=== PATIENT | female | born 1965 | race Caucasian/White ===

== ENCOUNTER 2020-10-25 10:36 | Outpatient (REF) | payer OTHER, SELFPAY ==
[2020-10-25 10:53] LABS: MANUAL DIFF FLAG NO
[2020-10-25 11:17] LABS: Basophils Percent Auto 0.5 % (0-2); Hematocrit 35.1 % (37-47); Hemoglobin 11.7 g/dl (12.0-16.0); Imm Gran Abs Auto 0.01 X10*3/uL (0.00-0.03); Imm Gran Pct Auto 0.3 % (0.0-0.4); Lymphocytes Absolute Auto 1.4 X10*3/uL (1.2-4.9); Lymphocytes Percent Auto 35.3 % (20-40); Mean Corpuscular HGB Conc 33.3 g/dl (31.0-35.0); Mean Corpuscular Hemoglobin 32.9 pg (27.0-33.0); Mean Corpuscular Volume 98.6 fL (80-98); Mean Platelet Volume 9.9 fL (9.4-12.3); Monocytes Absolute Auto 0.4 X10*3/uL (0.1-1.2); Monocytes Percent Auto 10.5 % (2-11); Neutrophils Percent Auto 52.4 % (45-73); Platelet Count 283 X10*3/uL (160-400); Red Blood Count 3.56 X10*6/uL (4.20-5.50); Red Cell Distribution Width 12.1 % (11.0-16.0); White Blood Count 3.8 X10*3/uL (4.8-10.8)
[2020-10-25 11:33] LABS: Estimated Average Glucose 103 mg/dL; Hemoglobin A1c % 5.2 %
[2020-10-25 11:39] LABS: Glucose Urine UA NEG (NEG); Leukocyte Esterase Urine 1+ (NEG); Nitrite Urine NEG (NEG); Specific Gravity - Urine 1.025 (1.005-1.025); Urine Blood NEG (NEG); Urine Ketones NEG (NEG); Urine Protein NEG (NEG-TRACE)
[2020-10-25 11:43] LABS: Appearance Urine CLOUDY; Color Urine YELLOW
[2020-10-25 11:46] LABS: Alanine Aminotransferase 11 U/L (0-31); Albumin Level 4.2 g/dL (3.5-5.0); Alkaline Phosphatase 68 U/L (39-117); Anion Gap 13 (12-20); Aspartate Amino Transferase 15 U/L (5-31); Bilirubin Total 0.6 mg/dL (0.0-1.0); Blood Urea Nitrogen 15 mg/dL (9-16); Carbon Dioxide 25 mmol/L (22-29); Chloride 106 mmol/L (96-108); Cholesterol 193 mg/dL; Estimated Glomerular Filt Rate > 60; Glucose Fasting 103 mg/dL (60-99); HDL Cholesterol 70 mg/dL; LDL Cholesterol Calculated 112 mg/dl; Potassium 4.1 mmol/L (3.3-5.1); Sodium 140 mmol/L (135-145); Total Protein 6.7 g/dL (6.5-8.0); Triglycerides 55 mg/dL
[2020-10-25 11:58] LABS: Bacteria Urine 1+ /LPF; Mucus Urine TRACE /LPF; RBC Urine 0-2 /HPF (0); Squamous Epithelial Cell Urine 3+ /LPF
[2020-10-25 12:15] LABS: Microalbum/Creatinine Ratio Ur 10.2 ug/mg cr
[2020-10-25 13:22] LABS: Folate 16.9 ng/mL (> or = 4.0); Vitamin B12 > 2000 pg/mL (200-900)
== END 2020-10-25 10:37 | disposition home or self-care (01) ==
LOC: HO.LNP 10:36
PROVIDERS: Visit Provider Internal Medicine
DX: Z00.00 Encounter for general adult medical examination without abnormal findings (principal); E53.8 Deficiency of other specified B group vitamins; D64.9 Anemia, unspecified; R73.03 Prediabetes
CPT/HCPCS: 80053; 80061; 81001; 81003; 82043; 82607; 82746; 83036; 85025

== ENCOUNTER 2020-12-21 09:12 | Outpatient (REF) | payer OTHER, SELFPAY ==
--- NOTE | ~2020-12-21 | MM_ITS ---
EXAMINATION: BONE DENSITOMETRY CLINICAL INDICATION: Postmenopausal. COMPARISON: None (current study represents initial baseline exam). TECHNIQUE: Using a [employer] DXA System (software version: 13.1) manufactured by [employer], dual-energy x-ray absorptiometry was performed of the lumbar spine and left hip. The images are of good technical quality. Summary results are attached. FINDINGS: AP SPINE L1-L4: BMD 1.268 g/cm2, Z-score 1.7, T-score 0.7, normal. LEFT FEMUR, NECK: BMD 0.848 g/cm2, Z-score -0.2, T-score -1.4, osteopenia. LEFT FEMUR, TOTAL: BMD 1.003 g/cm2, Z-score 0.7, T-score 0.0, normal. IDENTIFIED RISK FACTORS: Menopause. HISTORY OF FRACTURE: None listed. MEDICATIONS: Vitamin D. MM/XR DEXA axial skeleton IMPRESSION: 1. DIAGNOSIS: Osteopenia based on the lowest T-score value of -1.4 in the femoral neck applying World Health Organization criteria. 2. 10-YEAR FRACTURE RISK PREDICTION, FRAX: Major osteoporotic fracture (clinical spine, forearm, hip or shoulder) 6.8%. Hip fracture 0.5%. 3. Treatment Recommendations: NOF guidelines recommend consideration for treatment in postmenopausal women and men age 50 and older presenting with the following: -A hip or vertebral (clinical or morphometric) fracture. -T-score less than or equal to -2.5 at the femoral neck or spine after appropriate evaluation to exclude secondary causes. -Low bone mass at the hip or spine and a 10-year fracture probability by FRAX of greater than or equal to 3% for hip fracture or greater than or equal to 20% for major osteoporotic fracture based on the [place] adapted WHO algorithm. 4. Other Recommendations: All treatment decisions require clinical judgment and consideration of individual patient factors, including patient preferences, comorbidities, previous drug use, risk factors not captured in the FRAX model (e.g. frailty, falls, vitamin D deficiency, increased bone turnover, interval significant decline in bone density) and possible under or overestimation of fracture risk by FRAX. Additional medical evaluation for secondary cause of low bone mineral density may be appropriate. FUTURE SCAN RECOMMENDATION: People with diagnosed cases of osteoporosis or at high risk for fracture should have regular bone mineral density tests. For patients eligible for Medicare, routine testing is allowed once every 2 years. The testing frequency can be increased to one year for patients who have rapidly progressing disease, those who are receiving or discontinuing medical therapy to restore bone mass, or have additional risk factors.
== END 2020-12-21 09:13 | disposition home or self-care (01) ==
LOC: HO.MAMMO 09:12
PROVIDERS: Visit Provider Internal Medicine
DX: Z13.820 Encounter for screening for osteoporosis (principal); M85.80 Other specified disorders of bone density and structure, unspecified site; Z78.0 Asymptomatic menopausal state; Z79.899 Other long term (current) drug therapy
CPT/HCPCS: 77080

== ENCOUNTER 2021-11-16 11:51 | Outpatient (REF) | payer OTHER, SELFPAY ==
[2021-11-16 11:56] LABS: MANUAL DIFF FLAG NO
[2021-11-16 12:19] LABS: Appearance Urine CLEAR; Color Urine YELLOW; Glucose Urine UA NEG (NEG); Leukocyte Esterase Urine NEG (NEG); Nitrite Urine NEG (NEG); Specific Gravity - Urine 1.025 (1.005-1.025); Urine Blood NEG (NEG); Urine Ketones 5 MG/DL (NEG); Urine Protein NEG (NEG-TRACE)
[2021-11-16 12:23] LABS: Basophils Percent Auto 0.3 % (0-2); Eosinophils Absolute Auto 0.1 X10*3/uL (0.0-0.4); Eosinophils Percent Auto 1.3 % (0-4); Hematocrit 35.1 % (37.0-47.0); Hemoglobin 11.5 g/dl (12.0-16.0); Imm Gran Abs Auto 0.01 X10*3/uL (0.00-0.03); Imm Gran Pct Auto 0.3 % (0.0-0.4); Lymphocytes Absolute Auto 1.3 X10*3/uL (1.2-4.9); Lymphocytes Percent Auto 31.3 % (20-40); Mean Corpuscular HGB Conc 32.8 g/dl (31.0-35.0); Mean Corpuscular Hemoglobin 32.5 pg (27.0-33.0); Mean Corpuscular Volume 99.2 fL (80.0-98.0); Mean Platelet Volume 9.5 fL (9.4-12.3); Monocytes Absolute Auto 0.4 X10*3/uL (0.1-1.2); Neutrophils Absolute Auto 2.3 x10*3/uL (2.0-8.3); Neutrophils Percent Auto 56.8 % (45-73); Platelet Count 272 X10*3/uL (160-400); Red Blood Count 3.54 X10*6/uL (4.20-5.50); Red Cell Distribution Width 12.3 % (11.0-16.0)
[2021-11-16 12:37] LABS: Estimated Average Glucose 105 mg/dL; Hemoglobin A1c % 5.3 %
[2021-11-16 12:41] LABS: Creatinine Urine 197.18 mg/dL; Microalbum/Creatinine Ratio Ur 8.6 ug/mg cr
[2021-11-16 12:46] LABS: Alanine Aminotransferase 11 U/L (0-31); Albumin Level 4.1 g/dL (3.5-5.0); Alkaline Phosphatase 84 U/L (39-117); Anion Gap 9 (12-20); Aspartate Amino Transferase 14 U/L (5-31); Bilirubin Total 0.5 mg/dL (0.0-1.0); Blood Urea Nitrogen 12 mg/dL (9-16); Calcium 9.5 mg/dL (8.4-10.2); Carbon Dioxide 30 mmol/L (22-29); Chloride 107 mmol/L (96-108); Cholesterol 204 mg/dL; Estimated Glomerular Filt Rate > 60; Glucose Fasting 105 mg/dL (60-99); HDL Cholesterol 67 mg/dL; LDL Cholesterol Calculated 129 mg/dl; Potassium 4.4 mmol/L (3.3-5.1); Sodium 142 mmol/L (135-145); Total Protein 6.7 g/dL (6.5-8.0); Triglycerides 44 mg/dL
[2021-11-16 13:30] LABS: Folate > 20.0 ng/mL (> or = 4.0); Vitamin B12 > 2000 pg/mL (200-900)
== END 2021-11-16 11:52 | disposition home or self-care (01) ==
LOC: HO.LNP 11:51
PROVIDERS: Visit Provider Internal Medicine
DX: Z00.00 Encounter for general adult medical examination without abnormal findings (principal); E53.8 Deficiency of other specified B group vitamins; D64.9 Anemia, unspecified; R73.03 Prediabetes
CPT/HCPCS: 80053; 80061; 81003; 82043; 82607; 82746; 83036; 85025

== ENCOUNTER 2022-11-22 11:29 | Outpatient (REF) | payer OTHER, SELFPAY ==
[2022-11-22 11:33] LABS: MANUAL DIFF FLAG NO
[2022-11-22 11:52] LABS: Appearance Urine Clear; Color Urine Yellow; Glucose Urine UA Negative (Negative); Leukocyte Esterase Urine Small (1+) (Negative); Nitrite Urine Negative (Negative); PH 5.5 (5.0-9.0); UMIC TRIGGER UACC YES; Urine Blood Negative (Negative); Urine Ketones Negative (Negative); Urine Protein Negative (Neg-Trace)
[2022-11-22 11:53] LABS: Basophils Percent Auto 0.5 % (0-2); Eosinophils Absolute Auto 0.1 X10*3/uL (0.0-0.4); Eosinophils Percent Auto 1.4 % (0-4); Hematocrit 36.3 % (37.0-47.0); Imm Gran Abs Auto 0.01 X10*3/uL (0.00-0.03); Imm Gran Pct Auto 0.2 % (0.0-0.4); Lymphocytes Absolute Auto 1.4 X10*3/uL (1.2-4.9); Lymphocytes Percent Auto 32.6 % (20-40); Mean Corpuscular HGB Conc 33.1 g/dl (31.0-35.0); Mean Corpuscular Hemoglobin 32.6 pg (27.0-33.0); Mean Corpuscular Volume 98.6 fL (80.0-98.0); Mean Platelet Volume 9.9 fL (9.4-12.3); Monocytes Absolute Auto 0.5 X10*3/uL (0.1-1.2); Monocytes Percent Auto 11.5 % (2-11); Neutrophils Absolute Auto 2.3 x10*3/uL (2.0-8.3); Neutrophils Percent Auto 53.8 % (45-73); Platelet Count 248 X10*3/uL (160-400); Red Blood Count 3.68 X10*6/uL (4.20-5.50); Red Cell Distribution Width 12.3 % (11.0-16.0); White Blood Count 4.3 X10*3/uL (4.8-10.8)
[2022-11-22 12:05] LABS: Bacteria Urine None Seen (None Seen); Hyaline Casts Urine 0-2 /LPF (0-2); UACC Culture Trigger YES; WBC Urine 0-5 /HPF (0-5)
[2022-11-22 12:06] LABS: Estimated Average Glucose 111 mg/dL; Hemoglobin A1c % 5.5 %
[2022-11-22 12:14] LABS: Alanine Aminotransferase 12 U/L (0-31); Albumin Level 4.1 g/dL (3.5-5.0); Alkaline Phosphatase 74 U/L (39-117); Anion Gap 10 (12-20); Aspartate Amino Transferase 13 U/L (5-31); Bilirubin Total 0.7 mg/dL (0.0-1.0); Blood Urea Nitrogen 13 mg/dL (9-16); Calcium 9.2 mg/dL (8.4-10.2); Carbon Dioxide 28 mmol/L (22-29); Chloride 108 mmol/L (96-108); Cholesterol 199 mg/dL; Estimated Glomerular Filt Rate > 60; Glucose Fasting 98 mg/dL (60-99); HDL Cholesterol 69 mg/dL; LDL Cholesterol Calculated 123 mg/dl; Potassium 4.1 mmol/L (3.3-5.1); Sodium 142 mmol/L (135-145); Total Protein 6.4 g/dL (6.5-8.0); Triglycerides 39 mg/dL
[2022-11-22 12:37] LABS: Creatinine Urine 155.92 mg/dL; Microalbum/Creatinine Ratio Ur 8.9 ug/mg cr
[2022-11-22 12:56] LABS: Vitamin B12 > 2000 pg/mL (200-900)
[2022-11-22 14:05] LABS: Folate 14.4 ng/mL (> or = 4.0)
== END 2022-11-22 11:30 | disposition home or self-care (01) ==
LOC: HO.LNP 11:29
PROVIDERS: Visit Provider Internal Medicine
DX: Z00.00 Encounter for general adult medical examination without abnormal findings (principal); E53.8 Deficiency of other specified B group vitamins; D64.9 Anemia, unspecified; R73.03 Prediabetes
CPT/HCPCS: 80053; 80061; 81001; 82043; 82607; 82746; 83036; 85025; 87086

== ENCOUNTER 2022-12-11 10:20 | Outpatient (REF) | payer OTHER, SELFPAY ==
[2022-12-11 10:58] LABS: Appearance Urine Clear; Color Urine Yellow; Glucose Urine UA Negative (Negative); Leukocyte Esterase Urine Trace (Negative); Nitrite Urine Negative (Negative); PH 6.5 (5.0-9.0); Specific Gravity - Urine 1.015 (1.005-1.025); UMIC TRIGGER UACC YES; Urine Blood Negative (Negative); Urine Ketones Negative (Negative); Urine Protein Negative (Neg-Trace)
[2022-12-11 11:01] LABS: Bacteria Urine None Seen (None Seen); Hyaline Casts Urine 0-2 /LPF (0-2); RBC Urine 0-2 /HPF (0-2); Squamous Epithelial Cell Urine 0-2 /HPF (0-2); WBC Urine 0-5 /HPF (0-5)
== END 2022-12-11 10:21 | disposition home or self-care (01) ==
LOC: HO.LNP 10:20
PROVIDERS: PCP Internal Medicine; Visit Provider Internal Medicine
DX: R31.9 Hematuria, unspecified (principal)
CPT/HCPCS: 81001

== ENCOUNTER 2022-12-12 07:26 | Outpatient (REF) | payer OTHER, SELFPAY ==
--- NOTE | ~2022-12-12 | XR_ITS ---
EXAMINATION: XR CERVICAL SPINE CLINICAL INFORMATION: Right-sided neck pain COMPARISON: 06/08/2014 TECHNIQUE: Three-view cervical spine FINDINGS: No abnormal prevertebral soft tissue swelling is seen. No acute cervical spine fracture is noted. Alignment is satisfactory. There is mild narrowing at the C4-C5 and C5-C6 levels. Mild marginal spurring is seen at these levels. XR/XR cervical spine 2V IMPRESSION: Mild cervical spondylosis C4-C6.
== END 2022-12-12 07:27 | disposition home or self-care (01) ==
LOC: HO.XRAY 07:26
PROVIDERS: PCP Internal Medicine; Visit Provider Internal Medicine
DX: M54.2 Cervicalgia (principal)
CPT/HCPCS: 72040

== ENCOUNTER 2022-12-27 08:11 | Outpatient (REF) | payer OTHER, SELFPAY ==
--- NOTE | ~2022-12-27 | MM_ITS ---
EXAMINATION: BONE DENSITOMETRY CLINICAL INDICATION: Postmenopausal. COMPARISON: Baseline BD dated 12/21/2020. TECHNIQUE: Using a [employer] DXA System (software version: 13.1) manufactured by [employer], dual-energy x-ray absorptiometry was performed of the lumbar spine and left hip. The images are of good technical quality. Summary results are attached. FINDINGS: AP SPINE L1-L4: Current: BMD 1.235 g/cm2, Z-score 1.6, T-score 0.5, normal, 2.6% decrease from baseline (<5% change is not significant). Baseline: BMD 1.268 g/cm2. LEFT FEMUR, NECK: Current: BMD 0.812 g/cm2, Z-score -0.4, T-score -1.6, osteopenia. Baseline: BMD 0.848 g/cm2. LEFT FEMUR, TOTAL: Current: BMD 0.968 g/cm2, Z-score 0.5, T-score -0.3, normal, 3.5% increase from baseline (<5% change is not significant). Baseline: BMD 1.003 g/cm2. IDENTIFIED RISK FACTORS: Menopause, low calcium intake. HISTORY OF FRACTURE: None listed. MEDICATIONS: Vitamin D. MM/XR DEXA axial skeleton IMPRESSION: 1. DIAGNOSIS: Osteopenia based on the lowest T-score value of -1.6 in the femoral neck applying World Health Organization criteria. 2. 10-YEAR FRACTURE RISK PREDICTION, FRAX: Major osteoporotic fracture (clinical spine, forearm, hip or shoulder) 8.1%. Hip fracture 0.8%. 3. Treatment Recommendations: NOF guidelines recommend consideration for treatment in postmenopausal women and men age 50 and older presenting with the following: -A hip or vertebral (clinical or morphometric) fracture. -T-score less than or equal to -2.5 at the femoral neck or spine after appropriate evaluation to exclude secondary causes. -Low bone mass at the hip or spine and a 10-year fracture probability by FRAX of greater than or equal to 3% for hip fracture or greater than or equal to 20% for major osteoporotic fracture based on the [place] adapted WHO algorithm. 4. Other Recommendations: All treatment decisions require clinical judgment and consideration of individual patient factors, including patient preferences, comorbidities, previous drug use, risk factors not captured in the FRAX model (e.g. frailty, falls, vitamin D deficiency, increased bone turnover, interval significant decline in bone density) and possible under or overestimation of fracture risk by FRAX. Additional medical evaluation for secondary cause of low bone mineral density may be appropriate. FUTURE SCAN RECOMMENDATION: People with diagnosed cases of osteoporosis or at high risk for fracture should have regular bone mineral density tests. For patients eligible for Medicare, routine testing is allowed once every 2 years. The testing frequency can be increased to one year for patients who have rapidly progressing disease, those who are receiving or discontinuing medical therapy to restore bone mass, or have additional risk factors.
== END 2022-12-27 08:12 | disposition home or self-care (01) ==
LOC: HO.MAMMO 08:11
PROVIDERS: PCP Internal Medicine; Visit Provider Internal Medicine
DX: Z13.820 Encounter for screening for osteoporosis (principal); Z78.0 Asymptomatic menopausal state
CPT/HCPCS: 77080

== ENCOUNTER 2023-12-09 10:48 | Outpatient (REF) | payer OTHER, SELFPAY ==
[2023-12-09 10:51] LABS: MANUAL DIFF FLAG NO
[2023-12-09 11:05] LABS: Basophils Percent Auto 0.5 % (0-2); Hematocrit 37.1 % (37.0-47.0); Hemoglobin 12.4 g/dl (12.0-16.0); Lymphocytes Absolute Auto 1.4 X10*3/uL (1.2-4.9); Mean Corpuscular HGB Conc 33.4 g/dl (31.0-35.0); Mean Corpuscular Hemoglobin 32.4 pg (27.0-33.0); Mean Corpuscular Volume 96.9 fL (80.0-98.0); Mean Platelet Volume 9.7 fL (9.4-12.3); Monocytes Absolute Auto 0.4 X10*3/uL (0.1-1.2); Monocytes Percent Auto 10.9 % (2-11); Neutrophils Absolute Auto 2.1 x10*3/uL (2.0-8.3); Neutrophils Percent Auto 52.6 % (45-73); Platelet Count 290 X10*3/uL (160-400); Red Blood Count 3.83 X10*6/uL (4.20-5.50); Red Cell Distribution Width 13.2 % (11.0-16.0); White Blood Count 3.9 X10*3/uL (4.8-10.8)
[2023-12-09 11:27] LABS: Appearance Urine Clear; Color Urine Yellow; Estimated Average Glucose 108 mg/dL; Glucose Urine UA Negative (Negative); Hemoglobin A1c % 5.4 % (<6.0); Leukocyte Esterase Urine Negative (Negative); Nitrite Urine Negative (Negative); PH 5.5 (5.0-9.0); Specific Gravity - Urine 1.025 (1.005-1.025); Urine Blood Negative (Negative); Urine Ketones Negative (Negative); Urine Protein Negative (Neg-Trace)
[2023-12-09 11:30] LABS: Bacteria Urine None Seen (None Seen); Hyaline Casts Urine 0-2 /LPF (0-2); RBC Urine 0-2 /HPF (0-2); Squamous Epithelial Cell Urine 0-2 /HPF (0-2); WBC Urine 0-5 /HPF (0-5)
[2023-12-09 11:34] LABS: Creatinine Urine 203.34 mg/dL; Microalbum/Creatinine Ratio Ur 8.3 ug/mg cr (<30)
[2023-12-09 11:40] LABS: Alanine Aminotransferase 11 U/L (0-31); Albumin Level 4.2 g/dL (3.5-5.0); Alkaline Phosphatase 76 U/L (39-117); Anion Gap 15 (12-20); Aspartate Amino Transferase 16 U/L (5-31); Bilirubin Total 0.6 mg/dL (0.0-1.0); Blood Urea Nitrogen 12 mg/dL (9-16); Calcium 9.5 mg/dL (8.4-10.2); Carbon Dioxide 25 mmol/L (22-29); Chloride 107 mmol/L (96-108); Cholesterol 199 mg/dL (<200); Estimated Glomerular Filt Rate > 60; Glucose Fasting 98 mg/dL (60-99); HDL Cholesterol 80 mg/dL (>40); LDL Cholesterol Calculated 111 mg/dL (<100); Potassium 4.1 mmol/L (3.3-5.1); Sodium 143 mmol/L (135-145); Triglycerides 44 mg/dL (<150)
== END 2023-12-09 10:49 | disposition home or self-care (01) ==
LOC: HO.LNP 10:48
PROVIDERS: Visit Provider Internal Medicine
DX: Z00.00 Encounter for general adult medical examination without abnormal findings (principal); R73.03 Prediabetes
CPT/HCPCS: 80053; 80061; 81001; 82043; 82570; 83036; 85025

== ENCOUNTER 2025-03-05 10:16 | Outpatient (REF) | payer OTHER, SELFPAY ==
--- OUTSIDE RECORDS SUMMARY | 2025-03-05 03:30 | XMS_ITS ---
Author Organization Wilfred Chavez MD Address [address] [place] [phone] Care Team Providers Care Form Tamper Operator Name Role Phone Wilfred Chavez Primary Care Provider REASON FOR VISIT FASTING LABS Encounters Encounter Location Date Provider Diagnosis Wilfred Chavez MD [address] [place] [address] [place] [phone] 03/05/2025 Wilfred Chavez Blood tests for routine [...] type (ICD-10 - D64.9) Plan Of Treatment Pending Test Test Name Order Date Complete Blood Count Auto Diff Comprehensive [place]. Panel Fast Lipid Panel 03/05/2025 Vitamin B12 and Folate 03/05/2025 Microalbumin, Random 03/05/2025 Hemoglobin A1c 03/05/2025 UA ClnCatch+Micro w/rflx Cult 03/05/2025 Next Appt Details Provider Name:Wilfred duenas, 03/11/2025 08:00:00 AM, [address], [address], [place], [place], [phone], Progress Notes * Tiffanie KIRBY MDOB: [birth year] (59 yo F)Acc No.[id number]:03/05/2025 Progress Note Patient: Tiffanie DOLL Provider: Cristian Chavez MD :1965 A ge:59 Y S ex:Female Date:03/05/2025 Address:[address] [place], [place] [phone] Subjective: * Chief Complaints: * 1 . [...] L AB: Complete Blood Count Auto Diff L AB: Comprehensive [place]. Panel Fast L AB: Lipid Panel L AB: Vitamin B12 and Folate L AB: Microalbumin, Random L AB: Hemoglobin A1c L AB: UA ClnCatch+Micro w/rflx Cult 3. P rediabetes L AB: Complete Blood Count Auto Diff L AB: Comprehensive [place]. Panel Fast L AB: Lipid Panel L AB: Vitamin B12 and Folate L AB: Microalbumin, Random L AB: Hemoglobin A1c L AB: UA ClnCatch+Micro w/rflx Cult 4. A nemia, unspecified type L AB: Complete Blood Count Auto Diff L AB: Comprehensive [place]. Panel Fast L AB: Lipid Panel L AB: Vitamin B12 and Folate L AB: Microalbumin, Random L AB: Hemoglobin A1c L AB: UA ClnCatch+Micro w/rflx Cult * Procedure Codes: 3 6415 VENIPUNCT, ROUTINE* * * The named appointment provid er may or may not be the originator of this progress note, and it is not deemed complete until electronically signed by the appointment provider. Sign off status: Pending * Provider: Cristian Chavez MD Date: 0 03/05/2025 Generated for Otto moffett/Shanon/eTransmitting on: 0 03/05/2025 10:22 AM EDT
--- OUTSIDE RECORDS SUMMARY | 2025-03-05 10:22 | XMS_ITS | Patient Health Record ---
Author Organization [facility] Address [address] [place] [address] Care Team Providers Care Car Jockey Name Role Phone Scott DU, Wilfred Primary Care Provider Ricardo Wilson [phone] Allergies Allergen (clinical drug ingredient) Drug/Non Drug Allergy documented on EMR Reaction Allergy Type Onset Date Status ibuprofen Ibuprofen upset stomach Drug Allergy Act ivette Reason For Referral No Information Medications Medication SIG (Take, Route, Fr equency, Duration) Notes Start Date End Date Status MoviPrep 100 GM as directed Orally a s directed for 1 dose 02/25/2013 Active Problems Problem Type SNOMED Code ICD Code Onset Dates Problem Status W/U Status Risk Notes Problem Epigastric pain (30633528) Abdominal pain, epigastric (789.06) Active confirmed Problem Colon cancer screening (V76.51) Active confirmed Plan Of Treatment Pending Test Test Name Order Date LIVER PROFILE 02/25/2013 AMYLASE 02/25/2013 LIPASE 02/25/2013 CBC w DIFF 02/25/2013 Future Test Test Name Order Date UPPER GI ENDOSCOPY 02/25/2013 COLONOSCOPY 02/25/2013 Insurance Providers Payer Name Payer Address Payer Phone Subscriber Number Group Number Insured Name Patient Relationship to Insured Coverage Start Date Coverage End Date [facility] [address] [facility] [phone] [id number] HARVINDER PARRISH Self - patient is the insured Medical (General) History Medical History History ICD Code EGD in 08/2010--gastritis wit h H.pylori-Rx'd with 10 days of Omeprazole, Biaxin, and Amoxicillen--gave her good relief at the time Denies PA,DM,CVA,Lung disease,renal dise ase U/S in 06/2010 with gallbladder polyps -no stones
[2025-03-05 10:24] LABS: MANUAL DIFF FLAG NO
[2025-03-05 12:18] LABS: Appearance Urine Clear; Glucose Urine UA Negative (Negative); PH 7.5 (5.0-9.0); Specific Gravity - Urine 1.020 (1.005-1.025); UMIC TRIGGER UACC YES
[2025-03-05 12:19] LABS: Hematocrit 36.6 % (37.0-47.0); Hemoglobin 11.9 g/dl (12.0-16.0); Imm Gran Abs Auto 0.01 X10*3/uL (0.00-0.03); Imm Gran Pct Auto 0.2 % (0.0-0.4); Lymphocytes Absolute Auto 1.4 X10*3/uL (1.2-4.9); Mean Corpuscular HGB Conc 32.5 g/dl (31.0-35.0); Mean Corpuscular Hemoglobin 32.0 pg (27.0-33.0); Mean Corpuscular Volume 98.4 fL (80.0-98.0); NRBC Abs Auto 0.000 X10*3/uL (0.0-0.012); NRBC Pct Auto 0.0 /100WBC (0.0-0.2); Platelet Count 271 X10*3/uL (160-400); Red Blood Count 3.72 X10*6/uL (4.20-5.50); White Blood Count 4.4 X10*3/uL (4.8-10.8)
[2025-03-05 12:21] LABS: UACC Culture Trigger YES
[2025-03-05 12:27] LABS: Hemoglobin A1C 118.8373 umol/L; Total Hemoglobin (HGBA1C) 3199.6168 umol/L
[2025-03-05 12:32] LABS: Alanine Aminotransferase 14 U/L (0-31); Albumin Level 4.3 g/dL (3.5-5.0); Alkaline Phosphatase 72 U/L (39-117); Anion Gap 10 (12-20); Aspartate Amino Transferase 23 U/L (5-31); Blood Urea Nitrogen 15 mg/dL (9-16); Calcium 9.0 mg/dL (8.4-10.2); Carbon Dioxide 28 mmol/L (22-29); Chloride 107 mmol/L (96-108); Cholesterol 198 mg/dL (<200); Estimated Glomerular Filt Rate > 60; HDL Cholesterol 79 mg/dL (>40); Potassium 4.3 mmol/L (3.3-5.1); Sodium 141 mmol/L (135-145); Total Protein 6.8 g/dL (6.5-8.0); Triglycerides 39 mg/dL (<150)
[2025-03-05 13:06] LABS: Folate 11.1 ng/mL (> or = 4.0); Vitamin B12 > 2000 pg/mL (200-900)
[2025-03-05 14:08] LABS: Microalbum/Creatinine Ratio Ur 16.0 ug/mg cr (<30)
== END 2025-03-05 10:17 | disposition home or self-care (01) ==
LOC: HO.LNP 10:16
PROVIDERS: Visit Provider Internal Medicine
DX: Z00.00 Encounter for general adult medical examination without abnormal findings (principal); D64.9 Anemia, unspecified; E53.8 Deficiency of other specified B group vitamins; R73.03 Prediabetes; Z13.6 Encounter for screening for cardiovascular disorders
CPT/HCPCS: 80053; 80061; 81001; 82043; 82570; 82607; 82746; 83036; 85025; 87086

== ENCOUNTER 2025-03-11 11:15 | Outpatient (REF) | payer OTHER, SELFPAY ==
--- OUTSIDE RECORDS SUMMARY | 2025-03-11 04:00 | XMS_ITS ---
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 Thyroid 90 MG 1 tablet on an empty stomach Orally Once a day for 30 day(s) Active I33-Lefbqm 5000 1 tablet Orally once a day Active Vitamin D 50 MCG (1999 [place]) 1 tablet Orally Once a day [...] Status W/U Status Risk Notes Problem Hypothyroid (E03.9) Active confirmed Vital Signs Blood pressure systolic 102 mm Hg 03/11/20 25 Blood pressure diastolic 60 mm Hg 025 Height 66.5 in 03/11/2025 Weight 152 lbs 03/11/2025 BMI 24.16 kg/m2 03/11/2025 weight is up 6 pounds since 8--24 Encounters Encounter Location Date Provider Diagnosis Wilfred Cahvez MD [address] [place], [place] [phone] 03/11/2025 Wilfred Chavez Annual physical exam Z00.00 [...] diagnostic testing, [place] order faxed [place] [facility] [place] 03/11/2025 Prediabetes (ICD-10 - R73.03) [...] t esting, [place] order faxed to [facility] [place] Prediabetes stable, n need for m edication at this time Vitamin B12 deficiency Stable, will cont inue current regiment Depression screening negative screen Pending Test Test Name Order Date US ABD 03/11/2025 TSH reflex Free T4 03/11/2025 Next Appt Details Follow Up: 4 Weeks, Reason: Provider Name:Wilfred duenas, 04/19/2025 09:00:00 AM, [address], [address], [place], [place], [phone], Provider Name:Wilfred Collado ier, 03/07/2026 07:00:00 AM, [address], [address], [place], [phone], Provider Name:Wilfred Collado ier, 03/14/2026 09:30:00 AM, [address], [address], [place], [phone], Progress Notes * Tiffanie KIRBY MDOB: [birth year] (60 yo F)Acc No.[id number]:03/11/2025 Progress Notes Patient: Tiffanie DOLL Provider: Cristian Chavez MD :1965 A ge:60 Y S ex:Female Date:03/11/2025 Address:[address] [place], [place] [phone] Subjective: * Chief Complaints: * 1 . ANNUAL EXAM. * HPI: D epression Screening: PHQ-9 L [...] d enies. H eadache?denies. * Medical History: Colonoscopy - repeat in 10 years going to do cologard, 07/2015 Pap Smear w/ Dr.Lisa Butterfield,[place] CHIEF OF FIELD OPERATIONS ([phone]). * Family History: F ather: 79 yrs, [...] spouse. Marital status: . Occupation: works full-time [employer]. Pets: cat x1. 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 Objective: * Vitals: H t: 66.5, Wt: [...] mg/dL Urine Blood Negative Negative - Specific [place] - Urine 1.020 1.005-1.025 - Urine Protein [...] Urine 0-2 0-2 - /LPF L ab:Comprehensive [place]. Panel Fast (Order Date - 03/05/2025) (Collection [...] masses palpable. RECTAL EXAM: d one by inspector bicycle. FEMALE GENITOURINARY: d one by inspector bicycle. EXTREMITIES: n o clubbing, cyanosis, or edema. [...] diagnostic testing, [place] order faxed to [facility] de[facility] 4. P rediabetes Notes: stable, n need for medication at this time 5. V itamin B12 deficiency Notes: Stable, will continue current regiment 6. D epression screening Notes: negative screen * Procedure Codes: 3 6415 VENIPUNCT, ROUTINE* * Follow Up: 4 Weeks * * The named appointment provid er may or may not be the originator of this progress note, and it is not deemed complete until electronically signed by the appointment provider. Sign off status: Pending * Provider: Cristian Chavez MD Date: 03/11/2025 Generated for Otto moffett/Shanon/Galesmitting on: 03/11/2025 12:21 PM EDT History and Physical Notes * [...] mass, no lump RECTAL EXAM: done by inspector bicycle FEMALE GENITOURINARY: done by inspector bicycle ORAL CAVITY: mucosa moist
--- OUTSIDE RECORDS SUMMARY | 2025-03-11 12:21 | XMS_ITS | Clinical Summary ---
Author Organization [facility] Address [address] [place] [phone] Phone Care Team Providers Care Leasing Coordinator Name Role Phone Wilfred Chavez MD Primary Care Provider Allergies Active Allergy Reactions Criticality Noted Date Comments Ibuprofen 07/26/2016 Other reaction(s): gastric issues Medications magnesium sulfate 100 mg Cap 1 capsule with food Orally Four times a day Active cyanocobalamin, vitamin B-12, 5,000 mcg Subl 1 tablet under the tongue and allow to dissolve Sublingual Once a day Active CENTER SALES AND SERVICE ASSOCIATE THYROID 15 mg Tab TAKE 1 TABLET BY MOUTH EVERY DAY WITH 60MG TABLET 4 8 Active CENTER SALES AND SERVICE ASSOCIATE THYROID 60 mg Tab TAKE 1 TABLET BY MOUTH EVERY MORNING WITH 15MG TABLET 4 8 Active benzonatate (TESSALON) 100 MG capsule Take 1 capsule (100 mg total) by mouth 3 (three) times a day as needed for cough. 20 capsule 2 Active Active Problems Problem Noted Date Diagnosed Date Disorder of thyroid 10/22/2021 Immunizations Immunization Administration Dates Next Due COVID-19 (Pre-05/20) Pfizer Vaccine, mRNA, PF Hiv 11/03/2020 Family History Medical History Relation Comments COPD Father Emphysema Father dx @ 77 Heart failure Father Breast cancer Maternal Aunt in 70s Breast cancer Maternal Grandmother @ 60s Heart murmur Mother Relation Status Comments Father Maternal Aunt Maternal Grandmother Mother Alive Social History Tobacco Use Types Packs/Day Years Used Date Smoking Tobacco: Never Smokeless Tobacco: Never Tobacco Cessation:Counseling Given: Not Answered Alcohol Use Standard Drinks/Week Comments Yes 1 (1 standard drink = 0.6 oz pur e alcohol) social Education Answer Date Recorded Are you interested in more education? Not on usha e 11/23/2022 Are you concerned about learning? Not on file 11/23/2022 No 11/23/2022 No 11/23/2022 Digital Access Answer Date Recorded No 12/24/2022 No 12/24/2022 Reliable internet access at home? Not on file 12/24/2022 Device with a working camera? Not on file Intimate Partner Violence Answer Date R ecorded Are you denied basic needs s uch as food, clothing, or medical care? No 07/22/2023 In the past 12 months have y ou been in a relationship with a person who hurts, threatens, or tries to control you? No 07/22/2023 Are you denied basic needs s uch as food, clothing, or medical care? No 07/22/2023 In the past 12 months have y ou been in a relationship with a person who hurts, threatens, or tries to control you? No 07/22/2023 Comments No Sex and Gender Information Value Date Recorded Sex Assigned at Not on file Legal Sex Female 9:44 PM EDT Gender Identity Not on file Sexual Orientation Not on file Last Filed Vital Signs Vital Sign Reading Time Taken Comments Blood Pressure 148/85 07/22/2023 8:28 AM EST Pulse 62 07/22/2023 8:28 AM EST Temperature 36.7 C (98.1 F) 07/22/2023 8:28 AM EST Respiratory Rate 14 07/22/2023 8:28 AM EST Oxygen Saturation 99% 07/22/2023 8:28 AM EST Inhaled Oxygen Concentration - - Weight 68 kg (150 lb) 07/26/2022 2:08 PM EST Height 170.2 cm (5' 7 ) 07/26/2022 2:08 PM EST Body Mass Index 23.49 07/26/2022 2:08 PM EST Plan of Treatment Upcoming Encounters Date Type Department Care Team (Late st Contact Info) Description 10/08/2024 Procedure Pass [address] [address] 06/04/2025 4:00 PM EST Appointment [facility] Mammography- [facility] [address] [place] [address] Wilfred Chavez MD [address] [place] [address] [place] [address] Health Maintenance Due Date Last Done Comments Adult Td,Tdap Booster 1965 LIPID PANEL 1965 DEPRESSION SCREENING 1975 HEPATITIS C SCREENING 1981 HIV ONE-TIME SCREENING (18-65 YEARS) 1981 COLOGUARD 2008 COLONOSCOPY 2008 COLORECTAL CANCER SCREENING 2008 FIT TEST 2008 FOBT 2008 SIGMOIDOSCOPY 2008 VIRTUAL COLONOSCOPY 2008 PNEUMOCOCCAL VACCINES (50+ years) (1 of 1 - PCV) 2013 ZOSTER VACCINES (1 of 2) 2013 PAP SMEAR 09/01/2018 09/01/2015 COVID-19 VACCINE ( season) 2024 07/31/2021, 11/03/2020, 11/03/2020 MAMMOGRAM 11/28/2025 11/29/2023, 04/0 11/2022, 05/23/2021, Additional history exists RSV VACCINE (1 - 1-dose 75+ series) 2038 SMOKING STATUS SCREENING (Once After 26 Yrs) Completed 12/26/2023 HEPATITIS A VACCINES Aged Out No long er eligible based on patient's age to complete this topic HIB VACCINES Aged Out No longer eligi ble based on patient's age to complete this topic MENINGOCOCCAL VACCINES (ACWY) Aged Out No longer eligible based on patient's age to complete this topic MENINGOCOCCAL VACCINES (B) Aged Out N o longer eligible based on patient's age to complete this topic Medical Devices Not on file Procedures Procedure Name Priority Date/Time Associated Diagnosis Comments BI MAMMOGRAM SCREENING WITH TOMOSYNTHESIS WITH CAD (BILATERAL) Routine 11/29/2023 8:59 AM EDT Breast screening from Last 3 Months or Most Recently Relevant to Health Maintenance Results * (ABNORMAL) BI MAMMOGRAM SCREENING WITH TOMOSYNTHESIS WITH CAD (BILATERAL) (11/29/2023 8:59 AM EDT) Anatomical Region Laterality Modality Breast Left, Breast Right, Breast Bilateral Bila teral Mammography 11/29/2023 2:30 PM EDT Impressions 11/29/2023 2:41 PM EDT 1. Left breast approximately 4 x 6 mm discrete asymmetry, 3.5 cm from the nipple into medial lower breast is incompletely evaluated. Recommend diagnostic mammography to include spot compression views CC and MLO projections to be supplemented by 90 degrees mediolateral projection tomography with possible ultrasound follow. 2. No mammographic evidence of malignancy in the right breast. BI-RADS 0 INCOMPLETE Needs additional imaging evaluation The patient will be notified of the results and recommendations. The mammography department will contact the patient to arrange for the additional imaging. Narrative 11/29/2023 2:41 PM EDT BI MAMMOGRAM SCREENING WITH TOMOSYNTHESIS WITH CAD (BILATERAL) Additional patient information: Screening. COMPARISON: Comparison is made with relevant prior imaging, 10/31/2022 through 10/11/2016. Breast composition: The breast tissue is heterogeneously dense which may obscure small masses. Right No abnormal masses, suspicious calcifications, or other significant findings are identified mammographically in the right breast. Left Left breast discrete oval 4 x 6 mm asymmetry within the mid to anterior medial breast as revealed on cc projection projects inferiorly on tomography, approximately 3.5 cm from the nipple. Suggestion of correlate within the anterior inferior left breast MLO projection. No associated microcalcification. Procedure Note Hector Yanez MD - 11/29/2023 BI MAMMOGRAM SCREENING WITH TOMOSYNTHESIS WITH CAD (BILATERAL) Additional patient information: Screening. COMPARISON: Comparison is made with relevant prior imaging, 10/31/2022through 10/11/2016. Breast composition: The breast tissue is heterogeneously dense which mayobscure small masses. Right No abnormal masses, suspicious calcifications, or other significantfindings are identified mammographically in the right breast. Left Left breast discrete oval 4 x 6 mm asymmetry within the mid to anteriormedial breast as revealed on cc projection projects inferiorly ontomography, approximately 3.5 cm from the nipple. Suggestion of correlatewithin the anterior inferior left breast MLO projection. No associatedmicrocalcification. IMPRESSION: 1. Left breast approximately 4 x 6 mm discrete asymmetry, 3.5 cm from thenipple into medial lower breast is incompletely evaluated. Recommenddiagnostic mammography to include spot compression views CC and MLOprojections to be supplemented by 90 degrees mediolateral projectiontomography with possible ultrasound follow. 2. No mammographic evidence of malignancy in the right breast. BI-RADS 0 INCOMPLETE Needs additional imaging evaluation The patient will be notified of the results and recommendations. Themammography department will contact the patient to arrange for theadditional imaging. Wilfred Chavez MD IMG MG EXAMS Final R esult from Last 3 Months or Most Recently Relevant to Health Maintenance Insurance [place] [address] [place], [place] [address]S S P[employer] Care Teams Leasing Coordinator Relationship Specialty Start Date End Date Wilfred Chavez MD [address] [place] [address] [place] [id number] PCP - General 08/01/17 Additional Source Comments The information contained in this document represents components of the legal health record. It is not the complete legal health record.[facility]
== END 2025-03-11 11:16 | disposition home or self-care (01) ==
LOC: HO.LNP 11:15
PROVIDERS: Visit Provider Internal Medicine
DX: Z00.00 Encounter for general adult medical examination without abnormal findings (principal)
CPT/HCPCS: 84443

== ENCOUNTER 2025-05-04 14:39 | Outpatient (REF) | payer OTHER, SELFPAY ==
--- OUTSIDE RECORDS SUMMARY | 2024-01-08 12:20 | XMS_ITS ---
Author Organization [facility] Address [address] [facility] [address] [place] [phone] Care Team Providers Care Chlorination Operator Name Role Phone Wilfred Chavez MD Primary Care Provider Ricardo Wilson [phone] REASON FOR VISIT Patient presents today for a screening colonoscopy Encounters Encounter Location Date Provider Diagnosis [facility] [address] [facility] [address] [place] [phone] 01/08/2024 Ricardo Hagen Plan Of Treatment Next Appt Details Provider Name:Ricardo Hagen , 05/27/2025 02:30:00 PM, [address] [place] [address] , [place], [place], [phone], Progress Notes * GARTH PARRISHOB: 3 (60 yo F)Acc No.[id number]:01/08/2024 Progress Notes Patient: HARVINDER DOLL Provider: Mariama Hagen MD :1965 A ge:58 Y S ex:Female Date:01/08/2024 Address:[address] [place] [address] [id number] Pcp:Wilfred Chavez MD Subjective: * Chief Complaints: [...] MD Date: 0 01/08/2024 Generated for Otto moffett/Shanon/Geovanny on: 1 05:57 PM EDT
--- OUTSIDE RECORDS SUMMARY | 2024-02-28 05:15 | XMS_ITS ---
Author Organization Wilfred Chavez MD Address [address] [place] [phone] Care Team Providers Care Wafer Substrate Tester Name Role Phone Wilfred Chavez Primary Care Provider Allergies Allergen (clinical drug ingredient) Drug/Non Drug Allergy documented on EMR Reaction Allergy Type Onset Date Status ibuprofen Ibuprofen GI Upset Drug Allergy Active REASON FOR VISIT f/u er Medications Medication SIG (Take, Route, Frequency, Duration) Notes Start Date End Date Status SALES LEDGER ADMINISTRATOR Thyroid 90 MG 1 tablet on an empty stomach Orally Once a day for 30 day(s) Active P05-Rztjll 5000 1 tablet Orally once a day [...] kg/m2 02/28/2024 weight is down 3 pounds [facility] e 12-16-23 Encounters Encounter Location Date Provider Diagnosis Wilfred Chavez MD [address] [place] [address] Drive [address] [place] [phone] 02/28/2024 Wilfred Chavez Gastroenteritis K52. 9 Assessments [...] Next Appt Details Provider Name:Wilfred Collado ier, 05/14/2025 01:45:00 PM, [address] [place] [address], Suite [facility], [place], [place], [phone], Provider Name:Wilfred Collado ier, 03/07/2026 07:00:00 AM, [address] [place] [address], Suite [facility], [place], [place], [phone], Provider Name:Wilfred Collado ier, 03/14/2026 09:30:00 AM, [address] [place] [address], Suite [facility], [place], [place], [phone], Progress Notes * Tiffanie KIRBY MDOB: [birth year] (59 yo F)Acc No.[id number]:02/28/2024 Progress Notes Patient: Dada sanchezfloydChula rasmussenan Mack Provider: Cristian Chavez MD :1965 A ge:58 Y S ex:Female Date:02/28/2024 Address:[address] [place], [place] [phone] Subjective: * Chief Complaints: * F /u [...] (1999) Tablet 1 tablet Orally Once a eqsI48-Xygxyi 5000 Tablet Chewable 1 tablet Orally once a dayTaking SALES LEDGER ADMINISTRATOR Thyroid 90 MG Tablet 1 tablet on an empty stomach Orally Once a dayTaking Vitamin D 50 MCG (1999) Tablet 1 tablet Orally Once a dayTaking W49-Iryohz 5000 Tablet Chewable 1 tablet Orally once [...] 02/28/2024 Generated for Otto moffett/Shanon/Geovanny on: 1 05:58 PM EDT History and Physical Notes * HPI (History [...]
--- OUTSIDE RECORDS SUMMARY | 2025-03-05 03:30 | XMS_ITS ---
Author Organization Wilfred Chavez MD Address [address] [place], [place] [phone] Care Team Providers Care Manager Performance Improvement Name Role Phone Wilfred Chavez Primary Care Provider Results Component Value Reference Range Notes Complete Blood Count Auto Di ff Reviewed date:03/05/2025 04:53:50 PM Interpretation: Performing Lab:[facility], [address] [place] [phone] Notes/Report: White Blood Count 4.4 4.8-10.8 X10*3/uL [...] NRBC Abs Auto 0.000 0.0-0.012 X10*3/uL Comprehensive [place]. Panel Fa st Reviewed date:03/05/2025 04:52:52 PM Interpretation: Performing Lab:[address] [phone] Notes/Report: Sodium 141 135-145 mmol/L Potassium 4.3 [...] Panel Reviewed date:03/05/2025 04:54:00 PM Interpretation: Performing Lab:[address] [phone] Notes/Report: Triglycerides 39 <150 mg/dL Desirable Triglyceride: [...] Folate Reviewed date:03/05/2025 04:53:10 PM Interpretation: Performing Lab:[address] [phone] Notes/Report: Vitamin B12 > 2000 200-900 pg/mL NORMAL 200-900 PG/ML INDETERMINATE 160-199 PG/ML DEFICIENT < 160 PG/ML Folate 11.1 > or = 4.0 ng/mL Reference Values: > or = 4.0 ng/mL < 4.0 ng/mL suggests folate deficiency Methotrexate, aminopterin and folinic acid (leucovorin) are chemotherapeutic agents whose molecular structures are similar to folate; therefore, the Accounts Receivable Analyst folate assay cannot be used for patients using these drugs. Microalbumin, Random Reviewed date:03/05/2025 04:53:26 PM Interpretation: Performing Lab:[facility], [address] [place] [phone] Notes/Report: Creatinine Urine 136.87 Microalbumin Urine 22.0 Microalbum/Creatinine Ratio Ur 16.0 <30 ug/mg cr Albumin/Creatinine Ratio Reference Ranges: Normal: < 30 ug/mg creatinine Microalbuminuria: 30 - 300 ug/mg creatinine Clinical Albuminuria: > 300 ug/mg creatinine Hemoglobin A1c Reviewed date:03/05/2025 04:53:00 PM Interpretation: Performing Lab:[address] [phone] Notes/Report: Hemoglobin A1c % 5.5 <6.0 % [...] average glucose, using the formula of the L8P-Sftewyj Average Glucose study (ADAG), Diabetes Care, Vol.31,#8, Feb. 2007 UA ClnCatch+Micro w/rflx Cul t Reviewed date:2025 04:57:40 PM Interpretation: Performing Lab:[facility], [address] [place] [phone] Notes/Report: [id number] 0730 Urine, Clean Catch Color Urine Yellow Appearance Urine Clear PH 7.5 5.0-9.0 Glucose Urine UA Negative Negative mg/dL Urine Blood Negative Negative Specific [place] - Urine 1.020 1.005-1.025 Urine Protein Negative [...] Date Provider Diagnosis Wilfred Chavez MD [address] [place] [address] [address] [place], [place] [phone] 03/05/2025 Wilfred Chavez Blood tests for routine [...] Treatment Next Appt Details Provider Name:Wilfred duenas, 05/14/2025 01:45:00 PM, [address] [place] [address], [address], [place], [place], [phone], Provider Name:Wilfred duenas, 03/07/2026 07:00:00 AM, [address], [address], [place], [place], [phone], Provider Name:Wilfred Collado ier, 03/14/2026 09:30:00 AM, [address], [address], [place], [phone], Progress Notes * Tiffanie KIRBY MDOB: [birth year] (60 yo F)Acc No.[id number]:03/05/2025 Progress Note Patient: Tiffanie DOLL Provider: Cristian Chavez MD :1965 A ge:59 Y S ex:Female Date:03/05/2025 Address:[address] [place], [place] [phone] Subjective: * Chief Complaints: * 1 . [...] - 03/05/2025 07:30 AM) L AB: Comprehensive [place]. Panel Fast (Collection Date & Time - [...] - 03/05/2025 07:30 AM) L AB: Comprehensive [place]. Panel Fast (Collection Date & Time - [...] - 03/05/2025 07:30 AM) L AB: Comprehensive [place]. Panel Fast (Collection Date & Time - [...] 03/05/2025 Generated for Otto moffett/Shanon/Geovanny on: 1 05:58 PM EDT
--- OUTSIDE RECORDS SUMMARY | 2025-03-11 04:00 | XMS_ITS ---
Author Organization Wilfred Chavez MD Address [address] [place], [place] [phone] Care Team Providers Care Fryer Operator Name Role Phone Wiflred Chavez Primary Care Provider Allergies Allergen (clinical drug ingredient) Drug/Non Drug Allergy documented on EMR Reaction Allergy Type Onset Date Status ibuprofen Ibuprofen GI Upset Drug Allergy Active Results Component Value Reference Range Notes TSH reflex Free T4 Reviewed date:03/11/2025 12:29:23 PM Interpretation: Performing Lab:[facility], [address] [place] [phone] Notes/Report: TSH reflex Free T4 0.47 0.32-4.0 uIU/mL REASON FOR VISIT ANNUAL EXAM Medications Medication SIG (Take, Route, Frequency, Duration) Notes Start Date End Date Status 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 Thyroid 90 MG 1 tablet on an empty stomach Orally Once a day for 30 day(s) Active T25-Alevbe 5000 1 tablet Orally once a day [...] Status W/U Status Risk Notes Problem Hypothyroid (09703017) Hypothyroid (E03.9) Active confirmed Vital Signs Blood pressure systolic 102 mm Hg 03/11/20 25 Blood pressure diastolic 60 mm Hg 025 Height 66.5 in 03/11/2025 Weight 152 lbs 03/11/2025 BMI 24.16 kg/m2 03/11/2025 weight is up 6 pounds since 02-28-24 Encounters Encounter Location Date Provider Diagnosis Wilfred Chavez MD [address] [place] [phone] 03/11/2025 Wilfred Chavez Annual physical exam Z00.00 [...] pending diagnostic testing, [place] order faxed to [facility] dept 03/11/2025 Prediabetes (ICD-10 - R73.03) [...] diagnostic t esting, US order faxed to [facility] dept Prediabetes stable, n need for m edication at this time Vitamin B12 deficiency Stable, will cont inue current regiment Depression screening negative screen Pending Test Test Name Order Date US ABD 03/11/2025 Next Appt Details Follow Up: 4 Weeks, Reason: Provider Name:Wilfred Collado ier, 05/14/2025 01:45:00 PM, [address], [address], [place], [phone], Provider Name:Wilfred Collado ier, 03/07/2026 07:00:00 AM, [address], [address], [place], [place], [phone], Provider Name:Wilfred Collado ier, 03/14/2026 09:30:00 AM, [address], [address], [place], [phone], Progress Notes * Tiffanie KIRBY MDOB: [birth year] (60 yo F)Acc No.[id number]:03/11/2025 Progress Notes Patient: Dada Tiffanie CARTER Provider: Cristian Chavez MD :1965 A ge:60 Y S ex:Female Date:03/11/2025 Address:[address] [place], [place] [phone] Subjective: * Chief Complaints: * A NNUAL [...] spouse. Marital status: . Occupation: works full-time [employer]. Pets: cat x1. * Medications: T akingNP Thyroid 90 MG Tablet 1 tablet on an empty stomach Orally Once a day J97-Qfdjht 5000 Tablet Chewable 1 tablet Orally once a day Taking 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 Thyroid 90 MG Tablet 1 tablet on an empty stomach Orally Once a day Taking J78-Ryoqws 5000 Tablet Chewable 1 tablet Orally once [...] mg/dL Urine Blood Negative Negative - Specific [place] - Urine 1.020 1.005-1.025 - Urine Protein [...] Urine 0-2 0-2 - /LPF L ab:Comprehensive [place]. Panel Fast (Order Date - 03/05/2025) (Collection [...] masses palpable. RECTAL EXAM: d one by erp project manager. FEMALE GENITOURINARY: d one by erp project manager. EXTREMITIES: n o clubbing, cyanosis, or edema. [...] pending diagnostic testing, US order faxed to [facility] dept 4. P rediabetes Notes: stable, n need for medication at this time 5. V itamin B12 deficiency Notes: Stable, will continue current regiment 6. D epression screening Notes: negative screen * Procedure Codes: 3 6415 VENIPUNCT, ROUTINE* * Follow Up: 4 Weeks * * Sign off status: Completed true * Provider: Cristian Chavez MD Date: 0 03/11/2025 Generated for Otto moffett/Shanon/eTluciusitting on: 1 05:57 PM EDT History and Physical Notes * [...] mass, no lump RECTAL EXAM: done by erp project manager FEMALE GENITOURINARY: done by erp project manager ORAL CAVITY: mucosa moist
--- OUTSIDE RECORDS SUMMARY | 2025-03-16 05:37 | XMS_ITS ---
Author Organization Wilfred Chavez MD Address [address] [place] [phone] Care Team Providers Care Tax Assistant Name Role Phone Wilfred Chavez Primary Care Provider [phone] REASON FOR VISIT sooner US appt ? Encounters Encounter Location Date Provider Diagnosis Wilfred Chavez MD [address] [place] [address] [place] [phone] 03/16/2025 Wilfred Chavez Plan Of Treatment Next Appt Details Provider Name:Wilfred Collado ier, 05/14/2025 01:45:00 PM, [address] [place] [address], [address], [phone], Provider Name:Wilfred alcazarr, 03/07/2026 07:00:00 AM, [address] [place] [address], [address], [phone], Provider Name:Wilfred Collado ier, 03/14/2026 09:30:00 AM, [address] [place] [address], [address], [phone], Progress Notes * Tiffanie KIBRY MDOB: [birth year] (60 yo F)Acc No.[id number]:03/16/2025 Patient: Tiffanie DOLL :1965 A ge:60 Y S ex:Female Address:[address] [place] [phone] * true * Date: Generated for Otto moffett/Shanon/Geovanny on: 1 05:58 PM EDT
--- OUTSIDE RECORDS SUMMARY | 2025-04-19 05:00 | XMS_ITS ---
Author Organization Wilfred Chavez MD Address [address] [place] [phone] Care Team Providers Care Chemical Analyst Name Role Phone Wilfred Chavez Primary [...] Once a day for 30 day(s) Not-Taking ADAPTIVE PHYSICAL EDUCATION SPECIALIST Thyroid 90 MG 1 tablet on an empty stomach Orally Once a day for 30 day(s) Active X24-Cxgjur 5000 1 tablet Orally once a day Active Immunizations Vaccine Route Administration Date Status Comme nts Fluarix Quadrivalent - 150 Unknown 04/19/2025 Refused Problems Problem Type SNOMED Code ICD Code Onset Dates Problem Status W/U Status Risk Notes Problem Peptic ulcer (35898160) Peptic ulcer (K27.9) Active confirmed Vital Signs Blood pressure systolic 112 mm Hg 04/19/20 25 Blood pressure diastolic 60 mm Hg 025 Height 66.5 in 04/19/2025 Weight 156 lbs 04/19/2025 BMI 24.8 kg/m2 04/19/2025 weight is up 4 pounds since 03-11-25 Encounters Encounter Location Date Provider Diagnosis Wilfred Chavez MD [address] [place] [phone] 04/19/2025 Wilfred Chavez Peptic ulcer K27.9 and [...] Up: 4 Weeks, Reason: Provider Name:Wilfred duenas, 05/14/2025 01:45:00 PM, [address] [place] [address], [address], [phone], Provider Name:Wilfred duenas, 03/07/2026 07:00:00 AM, [address] [place] [address], [address], [phone], Provider Name:Wilfred duenas, 03/14/2026 09:30:00 AM, [address] [place] [address], [address], [phone], Progress Notes * Tiffanie KIRBY MDOB: [birth year] (60 yo F)Acc No.[id number]:04/19/2025 Progress Notes Patient: Tiffanie DOLL Provider: Cristian Chavez MD :1965 A ge:60 Y S ex:Female Date:04/19/2025 Address:[address] [place], [place] [phone] Subjective: * Chief Complaints: * 4 week [...] an empty stomach Orally Once a day D25-Tmkidq 5000 Tablet Chewable 1 tablet Orally once a day Taking ADAPTIVE PHYSICAL EDUCATION SPECIALIST Thyroid 90 MG Tablet 1 tablet on an empty stomach Orally Once a day Taking U45-Vxpsky 5000 Tablet Chewable 1 tablet Orally once [...] 0 04/19/2025 Generated for Otto moffett/Shanon/Galesmitting on: 1 05:58 PM EDT History and [...]
[2025-05-04 14:53] LABS: MANUAL DIFF FLAG NO
[2025-05-04 15:12] LABS: Hematocrit 37.6 % (37.0-47.0); Hemoglobin 12.7 g/dl (12.0-16.0); Imm Gran Abs Auto 0.01 X10*3/uL (0.00-0.03); Imm Gran Pct Auto 0.2 % (0.0-0.4); Lymphocytes Absolute Auto 1.8 X10*3/uL (1.2-4.9); Mean Corpuscular HGB Conc 33.8 g/dl (31.0-35.0); Mean Corpuscular Hemoglobin 32.3 pg (27.0-33.0); Mean Corpuscular Volume 95.7 fL (80.0-98.0); NRBC Abs Auto 0.000 X10*3/uL (0.0-0.012); NRBC Pct Auto 0.0 /100WBC (0.0-0.2); Platelet Count 287 X10*3/uL (160-400); Red Blood Count 3.93 X10*6/uL (4.20-5.50); White Blood Count 5.2 X10*3/uL (4.8-10.8)
[2025-05-04 15:41] LABS: Iron 67 mcg/dL (30-160); Percent Iron Saturation 24 % (15-50); Total Iron Binding Capacity 285 mcg/dL (228-428); Unsaturated Iron Binding 218 ug/dL
[2025-05-04 16:02] LABS: Ferritin 202 ng/mL (10-250)
--- OUTSIDE RECORDS SUMMARY | 2025-05-04 17:57 | XMS_ITS | Encounter Summary ---
Author Organization [facility] Address [address] [place], [place] [phone] Phone Care Team Providers Care Olive Pitter Name Role Phone Wilfred Chavez MD Primary Care Provider Encounter Details Date Type Department Care Team (Late st Contact Info) Description 10/10/2022 Procedure Pass [address] [id number] Social History Tobacco Use Types Packs/Day Years Used Date Smoking Tobacco: Never Smokeless Tobacco: Never Comments No Sex and Gender Information Value Date Recorded Sex Assigned at Not on file Legal Sex Female 9:44 PM EDT Gender Identity Not on file Sexual Orientation Not on file documented as of this encounter Plan of Treatment Upcoming Encounters Date Type Department Care Team (Late st Contact Info) Description 10/08/2024 Procedure Pass [address] [address] 06/04/2025 4:00 PM EST Appointment [address] [address] Wilfred Chavez MD [address] [place] [address] [place] [phone] documented as of this encounter Visit Diagnoses Not on filedocumented in this encounter Care Teams Olive Pitter Relationship Specialty Start Date End Date Wilfred Chavez MD [address] [place] [address] [place] [id number] PCP - General 08/01/17 documented as of this encounter Additional Source Comments The information contained in this document represents components of the legal health record. It is not the complete legal health record.[facility]
--- OUTSIDE RECORDS SUMMARY | 2025-05-04 17:57 | XMS_ITS | Patient Health Record ---
Author Organization [facility] Address [address] [place] [address] Care Team Providers Care Vegetable Buncher Name Role Phone Wilfred Chavez MD Primary Care Provider Ricardo Wilson Unavailable [phone] Allergies No Known Allergies Reason For Referral No Information Medications Medication SIG (Take, Route, Fr equency, Duration) Notes Start Date End Date Status [place] Thyroid 90 MG 1 tablet on an empt y stomach Orally Once a day Active Immunizations Vaccine Route Administration Date Status Comme nts Influenza Unknown 05/04/2025 Refused Social History AUDIT-C (Standard) Question Answer Notes Did you have a [...] (0 point) How often did you have six o r more drinks on one occasion in the past year? Never (0 point) Points 1 Interpretation Negative Section Notes: Nonsmoker; 3-4 glasses of wi ne per week Nonsmoker; 3-4 glasses of wi ne per week Problems Problem Type SNOMED Code ICD Code Onset Dates Problem Status W/U Status Risk Notes Problem Epigastric pain (22072764) Abdominal pain, epigastric (789.06) Active confirmed Problem Colon cancer screening (407961530) Colon cancer screening (V76.51) Active confirmed Problem Colon cancer screening (773586371) Colon cancer screening (Z12.11) Active confirmed Problem Anemia (897370531) Anemia (D64.9) Active confirmed Problem Left upper quadrant pain (536781845) LUQ abdominal pain (R10.12) Active confirmed Vital Signs Temperature 91 degrees Fahrenheit 05/04/2025 Blood pressure diastolic 01 mm Hg 05/04/2025 Height 67.5 in 05/04/2025 Blood pressure systolic 001 mm Hg 05/04/2025 Weight 151.8 lbs 05/04/2025 BMI 23.42 kg/m2 05/04/2025 Procedures Procedure Date Ordered Date Performed Result Body Sit e UPPER GI ENDOSCOPY 05/04/2025 N/A Encounters Encounter Location Date Provider Diagnosis [facility] [address] [place] [address] 05/04/2025 Ricardo Hagen LUQ abdominal pain R10.12 ; Colon cancer screening Z12.11 and Anemia D64.9 Assessments Encounter Date Diagnosis (ICD Code) Assessment Notes Treatment Notes Treatment Clinical Notes Section Notes 05/04/2025 Colon cancer screening (ICD-10 - Z12.11) We will discuss a screening colonoscopy after we settle the upper abdominal issues Overall, Diane appears quite well. While she is having these ongoing symptoms they do not seem overly worrisome given no reported weight loss, difficulty with eating, or any other worrisome symptoms. Nonetheless, symptoms are bothersome to her. We did review possibilities would include ongoing issues with gastritis and/or ulcer disease, We did discuss the possibility of recurrent H. pylori infection given her previous history as well. I do not think this represents anything worrisome such as neoplasm. At this point I advised her that 1 option would be to treat this empirically with acid suppression for a couple of months to see if that gives her any relief. We could also do some studies for H. pylori including a stool test. I also advised her that upper endoscopy would be the best test in my opinion to make a definitive assessment both for any etiologies such as significant gastritis or ulcer disease, but also to obtain biopsies to make a definitive assessment for H. pylori. She reports that she would like to avoid medication if possible. Therefore we have agreed to have her undergo an upper endoscopy for definitive evaluation prior to initiating any empiric therapy. Full consent has been obtained for the endoscopy, including risks of bleeding and perforation. I would plan to obtain biopsies to inspect for H. pylori, as well as for celiac disease. The procedure will be done with monitored anesthesia care. Of note, she does advise me that she has been on B12 replacement for quite some time now in regard to her previously low B12 level. She was diagnosed by a physician at the [facility] but was not given an etiology of the B12 deficiency. We did discuss the possibility of a pernicious anemia and associated atrophic gastritis that could cause that. In regard to her current borderline anemia I am going to repeat a CBC along with iron studies to rule out iron deficiency. While she did have a recent negative Cologuard test, I did advise her that I would recommend a colonoscopy at some point given her last exam being 12 years ago. We agreed to do the upper endoscopy first and hopefully settle the upper GI complaints, and we will then readdress a potential screening colonoscopy somewhere down the road. I did advise her that if her labs come back with an iron deficiency then I would recommend we do a colonoscopy along with the upper endoscopy, rather than holding off on the colonoscopy. Diane was comfortable with this plan. Thank you again for allowing me to participate in Diane's care. I shall continue to keep you advised of her progress. 05/04/2025 LUQ abdominal pain (ICD-10 - R10.12) Overall, Diane appears quite well. While she is having these ongoing symptoms they do not seem overly worrisome given no reported weight loss, difficulty with eating, or any other worrisome symptoms. Nonetheless, symptoms are bothersome to her. We did review possibilities would include ongoing issues with gastritis and/or ulcer disease, We did discuss the possibility of recurrent H. pylori infection given her previous history as well. I do not think this represents anything worrisome such as neoplasm. At this point I advised her that 1 option would be to treat this empirically with acid suppression for a couple of months to see if that gives her any relief. We could also do some studies for H. pylori including a stool test. I also advised her that upper endoscopy would be the best test in my opinion to make a definitive assessment both for any etiologies such as significant gastritis or ulcer disease, but also to obtain biopsies to make a definitive assessment for H. pylori. She reports that she would like to avoid medication if possible. Therefore we have agreed to have her undergo an upper endoscopy for definitive evaluation prior to initiating any empiric therapy. Full consent has been obtained for the endoscopy, including risks of bleeding and perforation. I would plan to obtain biopsies to inspect for H. pylori, as well as for celiac disease. The procedure will be done with monitored anesthesia care. Of note, she does advise me that she has been on B12 replacement for quite some time now in regard to her previously low B12 level. She was diagnosed by a physician at the [facility] but was not given an etiology of the B12 deficiency. We did discuss the possibility of a pernicious anemia and associated atrophic gastritis that could cause that. In regard to her current borderline anemia I am going to repeat a CBC along with iron studies to rule out iron deficiency. While she did have a recent negative Cologuard test, I did advise her that I would recommend a colonoscopy at some point given her last exam being 12 years ago. We agreed to do the upper endoscopy first and hopefully settle the upper GI complaints, and we will then readdress a potential screening colonoscopy somewhere down the road. I did advise her that if her labs come back with an iron deficiency then I would recommend we do a colonoscopy along with the upper endoscopy, rather than holding off on the colonoscopy. Diane was comfortable with this plan. Thank you again for allowing me to participate in Diane's care. I shall continue to keep you advised of her progress. 05/04/2025 Anemia (ICD-10 - D64.9) Overall, Diane appears quite well. While she is having these ongoing symptoms they do not seem overly worrisome given no reported weight loss, difficulty with eating, or any other worrisome symptoms. Nonetheless, symptoms are bothersome to her. We did review possibilities would include ongoing issues with gastritis and/or ulcer disease, We did discuss the possibility of recurrent H. pylori infection given her previous history as well. I do not think this represents anything worrisome such as neoplasm. At this point I advised her that 1 option would be to treat this empirically with acid suppression for a couple of months to see if that gives her any relief. We could also do some studies for H. pylori including a stool test. I also advised her that upper endoscopy would be the best test in my opinion to make a definitive assessment both for any etiologies such as significant gastritis or ulcer disease, but also to obtain biopsies to make a definitive assessment for H. pylori. She reports that she would like to avoid medication if possible. Therefore we have agreed to have her undergo an upper endoscopy for definitive evaluation prior to initiating any empiric therapy. Full consent has been obtained for the endoscopy, including risks of bleeding and perforation. I would plan to obtain biopsies to inspect for H. pylori, as well as for celiac disease. The procedure will be done with monitored anesthesia care. Of note, she does advise me that she has been on B12 replacement for quite some time now in regard to her previously low B12 level. She was diagnosed by a physician at the [facility] but was not given an etiology of the B12 deficiency. We did discuss the possibility of a pernicious anemia and associated atrophic gastritis that could cause that. In regard to her current borderline anemia I am going to repeat a CBC along with iron studies to rule out iron deficiency. While she did have a recent negative Cologuard test, I did advise her that I would recommend a colonoscopy at some point given her last exam being 12 years ago. We agreed to do the upper endoscopy first and hopefully settle the upper GI complaints, and we will then readdress a potential screening colonoscopy somewhere down the road. I did advise her that if her labs come back with an iron deficiency then I would recommend we do a colonoscopy along with the upper endoscopy, rather than holding off on the colonoscopy. Diane was comfortable with this plan. Thank you again for allowing me to participate in Diane's care. I shall continue to keep you advised of her progress. Plan Of Treatment Pending Test Test Name Order Date UPPER GI ENDOSCOPY 05/04/2025 LIVER PROFILE 02/25/2013 AMYLASE 02/25/2013 LIPASE 02/25/2013 IRON + IBC (FE) 05/04/2025 CBC w DIFF 05/04/2025 CBC w DIFF 02/25/2013 Ferritin 05/04/2025 Future Test Test Name Order Date UPPER GI ENDOSCOPY 02/25/2013 COLONOSCOPY 02/25/2013 Next Appt Details Provider Name:Ricardo Hagen , 05/27/2025 02:30:00 PM, [address] [place] [address] , [place], [place], [id number], Insurance Providers Payer Name Payer Address Payer Phone Subscriber Number Group Number Insured Name Patient Relationship to Insured Coverage Start Date Coverage End Date [facility] [address] [place] [phone] [id number] HARVINDER PARRISH Self - patient is the insured 4 Medical (General) History Medical History History ICD Code EGD in 08/2010- gastritis wit h H.pylori-Rx'd with 10 days of Omeprazole, Biaxin, and Amoxicillen- gave her good relief at the time Denies [place],DM,CVA,Lung disease,renal dise ase U/S in 06/2010 with gallbladder polyps -no stones Neg. Cologuard 2024 Negative screening colonoscopy in 2012 EGD 2012 minimal HH, WNL, bx neg H.pylor i Hypothyroidism
--- OUTSIDE RECORDS SUMMARY | 2025-05-04 17:57 | XMS_ITS | Encounter Summary ---
Author Organization [facility] Address [address] [place] [phone] Phone Care Team Providers Care Laborer Drying Department Name Role Phone Wilfred Chavez MD Primary Care Provider Encounter Details Date Type Department Care Team (Late st Contact Info) Description 05/01/2021 Procedure Pass [address] [address] Social History Tobacco Use Types Packs/Day Years [...] st Contact Info) Description 10/08/2024 Procedure Pass [address] [address] 06/04/2025 4:00 PM EST Appointment [address] [address] Wilfred Chavez MD [address] [place] [address] [place] [address] documented as of this encounter Visit Diagnoses Not on filedocumented in this encounter Additional Health Concerns Infection Onset Date Last Indicated Resolved Time CoV-Risk 10/22/2021 10/22/2021 11/02/2021 1:23 AM EDT CoV-Risk 07/26/2022 07/26/2022 08/06/2022 1:22 AM EST documented as of this encounter Care Teams Laborer Drying Department Relationship Specialty Start Date End Date Wilfred Chavez MD [address] [place] [address] [place] [address] PCP - General 08/01/17 documented as of this encounter Additional Source Comments The information contained in this document represents components of the legal health record. It is not the complete legal health record.[facility]
--- OUTSIDE RECORDS SUMMARY | 2025-05-04 17:57 | XMS_ITS | Encounter Summary ---
Author Organization [facility] Address [address] [place] [address] Phone Care Team Providers Care Hall Clerk Name Role Phone Wilfred Chavez MD Primary Care Provider Encounter Details Date Type Department Care Team (Late Contact Info) Description 09/29/2018 Ancillary Orders Virtual Department [address] [place] [address] Wilfred Chavez MD [address] [place] [address] [place] [id number] Breast screening Social History Tobacco Use Types Packs/Day Years Used Date Smoking Tobacco: Never Smokeless Tobacco: Never Comments No Sex and Gender Information Value Date Recorded Sex Assigned at Not on file Legal Sex Female 9:44 PM EDT Gender Identity Not on file Sexual Orientation Not on file documented as of this encounter Plan of Treatment Upcoming Encounters Date Type Department Care Team (Late Contact Info) Description 10/08/2024 Procedure Pass [address] [address] 06/04/2025 4:00 PM EST Appointment [address] [address] Wilfred Chavez MD [address] [place] [address] [place] [address] documented as of this encounter Results * BI MAMMOGRAM SCREENING WITH TOMOSYNTHESIS WITH CAD (BILATERAL) (11/28/2018 7:47 AM EDT) Anatomical Region Laterality Modality Breast Left, Breast Right, Breast Bilateral Bila teral Mammography 11/28/2018 9:05 AM EDT Impressions 11/28/2018 9:09 AM EDT No findings suspicious for malignancy are identified. In the absence of a worrisome palpable abnormality, annual screening mammography is recommended. BI-RADS CATEGORY: 1 - Negative. DENSITY: The breast tissue is extremely dense, an appearance which could obscure a lesion on mammography. POS [id number] Narrative 11/28/2018 9:09 AM EDT COMPARISON: 08/25/2012 through 11/27/2017 Bilateral 3-D tomosynthesis with 2-D reconstructions in the CC and MLO projection. Computer-aided detection system also utilized. No new mass, asymmetry, architectural distortion or suspicious calcifications have become apparent on either side. Procedure Note Fazal Way MD - 11/28/2018 COMPARISON: 08/25/2012 through 11/27/2017 Bilateral 3-D tomosynthesis with 2-D reconstructions in the CC and MLOprojection. Computer-aided detection system also utilized. No new mass, asymmetry, architectural distortion or suspiciouscalcifications have become apparent on either side. IMPRESSION: No findings suspicious for malignancy are identified. In the absence of aworrisome palpable abnormality, annual screening mammography isrecommended. BI-RADS CATEGORY: 1 - Negative. DENSITY: The breast tissue is extremely dense, an appearance which couldobscure a lesion on mammography. POS [email or web address] Wilfred Chavez MD IMG MG EXAMS Final R esult documented in this encounter Visit Diagnoses Diagnosis Breast screening Breast screening, unspecified Breast screening Breast screening, unspecified documented in this encounter Additional Health Concerns Infection Onset Date Last Indicated Resolved Time CoV-Exposed Comment:Recent close contact 07/20/2020 07/20/2020 08/03/2020 1:24 AM EST CoV-Risk 10/22/2021 10/22/2021 11/02/2021 1:23 AM EDT CoV-Risk 07/26/2022 07/26/2022 08/06/2022 1:22 AM EST documented as of this encounter Care Teams Hall Clerk Relationship Specialty Start Date End Date Wilfred Chavez MD [address] [place] [address] [place] [address] PCP - General 08/01/17 documented as of this encounter Additional Source Comments The information contained in this document represents components of the legal health record. It is not the complete legal health record.[facility]
--- OUTSIDE RECORDS SUMMARY | 2025-05-04 17:57 | XMS_ITS | Encounter Summary ---
Author Organization [facility] Address [address] [place] [address] Phone Care Team Providers Care Adzing And Boring Machine Helper Name Role Phone Wilfred Chavez MD Primary Care Provider Encounter Details Date Type Department Care Team (Late st Contact Info) Description 10/10/2022 Transcribe Orders Virtual Department [address] [place] [address] Wilfred Chavez MD [address] [place] [address] [place] [address] Encounter for screening mammogram for malignant neoplasm of breast (Primary Dx) Social History Tobacco Use Types Packs/Day Years [...] st Contact Info) Description 10/08/2024 Procedure Pass [address] [address] 06/04/2025 4:00 PM EST Appointment [address] [address] Wilfred Chavez MD [address] [place] [address] [place] [address] documented as of this encounter Results * BI MAMMOGRAM SCREENING WITH TOMOSYNTHESIS WITH CAD (BILATERAL) (10/31/2022 9:38 AM EDT) Anatomical Region Laterality Modality Breast Left, Breast Right, Breast Bilateral Bila teral Mammography 11/01/2022 12:0 3 PM EDT Impressions 11/01/2022 12:10 PM EDT BILATERAL BREASTS: No suspicious interval change. No evidence of malignancy. Normal interval follow-up is recommended. BI-RADS: BI-RADS CATEGORY: 2 - Benign finding. DENSITY: The breast tissue is extremely dense, which lowers the sensitivity of mammography. Narrative 11/01/2022 12:10 PM EDT History: Breast cancer screening STUDY: Bilateral screening mammography with tomosynthesis and CAD TECHNIQUE: Bilateral full-field digital screening mammography is obtained and read in conjunction with computer-aided detection. Tomosynthesis as well as 2-D C view imaging were obtained. COMPARISON: Comparison made with multiple prior, most recent 05/23/2021, and most remote 05/06/2003. FINDINGS: Stable breast parenchymal pattern and stable benign calcifications bilaterally. No suspicious mass, concerning group of calcifications or suspicious asymmetry identified. Procedure Note Hector Yanez MD - 11/01/2022 History: Breast cancer screening STUDY: Bilateral screening mammography with tomosynthesis and CAD TECHNIQUE: Bilateral full-field digital screening mammography is obtainedand read in conjunction with computer-aided detection. Tomosynthesis aswell as 2-D C view imaging were obtained. COMPARISON: Comparison made with multiple prior, most recent 05/23/2021,and most remote 05/06/2003. FINDINGS: Stable breast parenchymal pattern and stable benigncalcifications bilaterally. No suspicious mass, concerning group ofcalcifications or suspicious asymmetry identified. IMPRESSION: BILATERAL BREASTS: No suspicious interval change. No evidence ofmalignancy. Normal interval follow-up is recommended. BI-RADS: BI-RADS CATEGORY: 2 - Benign finding. DENSITY: The breast tissue is extremely dense, which lowers thesensitivity of mammography. Wilfred Chavez MD IMG MG EXAMS Final R esult documented in this encounter Visit Diagnoses Diagnosis Encounter for screening mammogram for malignant neoplasm of breast- Primary Encounter for screening mammogram for malignant neoplasm of breast documented in this encounter Care Teams Adzing And Boring Machine Helper Relationship Specialty Start Date End Date Wilfred Chavez MD [address] [place] [address] [place] [address] PCP - General 08/01/17 documented as of this encounter Additional Source Comments The information contained in this document represents components of the legal health record. It is not the complete legal health record.[facility]
--- OUTSIDE RECORDS SUMMARY | 2025-05-04 17:57 | XMS_ITS | Encounter Summary ---
Author Organization [facility] Address [address] [place] [address] Phone Care Team Providers Care Hide Cleaner Name Role Phone Wilfred Chavez MD Primary Care Provider Encounter Details Date Type Department Care Team (Late st Contact Info) Description 10/08/2024 Transcribe Orders Virtual Department [address] [place] [address] Wilfred Chavez MD [address] [place] [address] [place] [address] Breast screening (Primary Dx) Social History Tobacco Use Types Packs/Day Years Used Date Smoking Tobacco: Never Smokeless Tobacco: Never Alcohol Use Standard Drinks/Week Comments Yes 1 [...] st Contact Info) Description 10/08/2024 Procedure Pass [address] [address] 06/04/2025 4:00 PM EST Appointment [address] [address] Wilfred Chavez MD [address] [place] [address] [place] [address] Scheduled Orders Name Type Priority Associated Diagnoses Orde r Schedule Mammogram Screening (Bilateral) Imaging Routine Breast screening Expected: 11/08/2024, Expires: 10/08/2025 documented as of this encounter Visit Diagnoses Diagnosis Breast screening- Primary Breast screening, unspecified documented in this encounter Care Teams Hide Cleaner Relationship Specialty Start Date End Date Wilfred Chavez MD [address] [place] [address] [place] [address] PCP - General 08/01/17 documented as of this encounter Additional Source Comments The information contained in this document represents components of the legal health record. It is not the complete legal health record.[facility]
--- OUTSIDE RECORDS SUMMARY | 2025-05-04 17:57 | XMS_ITS | Encounter Summary ---
Author Organization [facility] Address [address] [place] [phone] Phone Care Team Providers Care Block Bolter Mule Operator Name Role Phone Wilfred Chavez MD Primary Care Provider Encounter Details Date Type Department Care Team (Late Contact Info) Description 10/22/2017 Ancillary Orders Virtual Department [address] [place] [phone] Wilfred Chavez MD [address] [place] [address] [place] [address] Breast screening Social History Tobacco Use Types Packs/Day Years Used Date Smoking Tobacco: Never Assessed Comments Unknown Sex and Gender Information Value Date Recorded Sex Assigned at Not on file Legal Sex Female 9:44 PM EDT Gender Identity Not on file Sexual Orientation Not on file documented as of this encounter Plan of Treatment Upcoming Encounters Date Type Department Care Team (Late Contact Info) Description 10/08/2024 Procedure Pass [address] [address] 06/04/2025 4:00 PM EST Appointment [address] [address] Wilfred Chavez MD [address] [place] [address] [place] [address] documented as of this encounter Results * BI MAMMOGRAM SCREENING WITH TOMOSYNTHESIS WITH CAD (BILATERAL) (11/27/2017 2:08 PM EDT) Anatomical Region Laterality Modality Breast Left, Breast Right, Breast Bilateral Bila teral Mammography 11/27/2017 4:38 PM EDT Impressions 11/27/2017 4:40 PM EDT No mammographic evidence of malignancy. BI-RADS CATEGORY: 2 - Benign finding. DENSITY: The breast tissue is extremely dense, an appearance which could obscure a lesion on mammography. POS - [id number] Narrative 11/27/2017 4:40 PM EDT Standard digital full-field 2-D C view and two-plane tomographic imaging was performed and compared with multiple prior studies, most recently 10/11/2016, with utilization of computer-aided detection. The breast parenchyma is extremely dense, limiting mammographic sensitivity. The stromal markings are essentially unchanged in overall appearance and distribution. No dominant spiculated mass, suspicious clustered microcalcifications, or focal zone of pathologic skin thickening or retraction are noted to have arisen in the interim. Scattered punctate grossly benign-appearing microcalcifications are again demonstrated bilaterally. Procedure Note Bob Choudhary MD - 11/27/2017 Standard digital full-field 2-D C view and two-plane tomographic imagingwas performed and compared with multiple prior studies, most cloqfvds55/16/2017, with utilization of computer-aided detection. The breast parenchyma is extremely dense, limiting mammographicsensitivity. The stromal markings are essentially unchanged in overallappearance and distribution. No dominant spiculated mass, suspiciousclustered microcalcifications, or focal zone of pathologic skin thickeningor retraction are noted to have arisen in the interim. Scattered punctategrossly benign-appearing microcalcifications are again demonstratedbilaterally. IMPRESSION: No mammographic evidence of malignancy. BI-RADS CATEGORY: 2 - Benign finding. DENSITY: The breast tissue is extremely dense, an appearance which couldobscure a lesion on mammography. POS - CDHMAM2 Wilfred Chavez MD IMG MG EXAMS [...] documented as of this encounter Care Teams Block Bolter Mule Operator Relationship Specialty Start Date End Date Wilfred Chavez MD [address] [place] [address] [place] [address] PCP - General 08/01/17 documented as of this encounter Additional Source Comments The information contained in this document represents components of the legal health record. It is not the complete legal health record.[facility]
--- OUTSIDE RECORDS SUMMARY | 2025-05-04 17:57 | XMS_ITS | Clinical Summary ---
Author Organization [facility] Address [address] [place] [phone] Phone Care Team Providers Care Political Science Professor Name Role Phone Wilfred Chavez MD Primary Care Provider Allergies Active Allergy Reactions Criticality Noted Date Comments Ibuprofen 07/26/2016 Other reaction(s): gastric issues Medications magnesium sulfate 100 mg Cap 1 capsule with food Orally Four times a day Active cyanocobalamin, vitamin B-12, 5,000 mcg Subl 1 tablet under the tongue and allow to dissolve Sublingual Once a day Active HAIR OR BEAUTY SALON MANAGER THYROID 15 mg Tab TAKE 1 TABLET BY MOUTH EVERY DAY WITH 60MG TABLET 4 8 Active HAIR OR BEAUTY SALON MANAGER THYROID 60 mg Tab TAKE 1 TABLET BY MOUTH EVERY MORNING WITH 15MG TABLET 4 8 Active benzonatate (TESSALON) 100 MG capsule Take 1 capsule (100 mg total) by mouth 3 (three) times a day as needed for cough. 20 capsule 2 Active Active Problems Problem Noted Date Diagnosed Date Disorder of thyroid 10/22/2021 Encounters Date Type Department Care Team Description 04/09/2025 8:56 AM EDT - 04/09/2025 11:59 PM EDT Hospital Encounter [facility] [address] [place] [address] Pierce Barton MD Discharge Disposition: Home or Self Care 04/09/2025 Transcribe Orders [facility] [address] [place] [address] Pierce Barton MD Other specified hypothyroidism (Primary Dx); Other specified disorders of bone density and structure, multiple sites from Last 3 Months Immunizations Immunization Administration Dates Next Due COVID-19 [...] st Contact Info) Description 10/08/2024 Procedure Pass [address] [address] 06/04/2025 4:00 PM EST Appointment [address] [address] Wilfred Chavez MD [address] [place] [address] [place] [address] Health Maintenance Due Date Last Done Comments [...] of 2) 2013 PAP SMEAR 09/01/2018 09/01/2015 INFLUENZA VACCINE (#1) 2025 COVID-19 VACCINE (2024- season) 2025 07/31/2021, 11/03/2020, 11/03/2020 MAMMOGRAM 11/28/2025 11/29/2023, 04/11/2022, 05/23/2021, Additional history exists RSV VACCINE (1 [...] Procedure Name Priority Date/Time Associated Diagnosis Comments IONIZED CALCIUM Routine 04/09/2025 9:00 AM EDT Other specified hypothyroidism Other specified disorders of bone density and structure, multiple sites DHEA-SULFATE Routine 04/09/2025 9:00 AM EDT Other specified hypothyroidism Other specified disorders of bone density and structure, multiple sites ESTRADIOL Routine 04/09/2025 9:00 AM EDT Other specified hypothyroidism Other specified disorders of bone density and structure, multiple sites FREE T3 Routine 04/09/2025 9:00 AM EDT Other specified hypothyroidism Other specified disorders of bone density and structure, multiple sites FREE T4 Routine 04/09/2025 9:00 AM EDT Other specified hypothyroidism HC ASSAY OF MAGNESIUM Routine 04/09/2025 9:00 AM EDT Other specified hypothyroidism Other specified disorders of bone density and structure, multiple sites PROGESTERONE Routine 04/09/2025 9:00 AM EDT Other specified hypothyroidism Other specified disorders of bone density and structure, multiple sites TESTOSTERONE, TOTAL AND FREE Routine 04/09/2025 9:00 AM EDT Other specified hypothyroidism Other specified disorders of bone density and structure, multiple sites TSH Routine 04/09/2025 9:00 AM EDT Other specified hypothyroidism 25-OH VITAMIN D Routine 04/09/2025 9:00 AM EDT Other specified hypothyroidism Other specified disorders of bone density and structure, multiple sites BI MAMMOGRAM SCREENING WITH TOMOSYNTHESIS WITH CAD (BILATERAL) Routine 11/29/2023 8:59 AM EDT Breast screening from Last 3 Months or Most Recently Relevant to Health Maintenance Results * RBC magnesium (04/09/2025 9:00 AM EDT) Pathologist [facility] RBC Magnesium 5.3 4.0 - 6.4 mg/dL [facility] Comment: (NOTE) This test was developed and its analytical performance characteristics have been determined by [employer] [place], [place]. It has not been cleared or approved by the U.S. Food and Drug Administration. This assay has been validated pursuant to the CLIA regulations and is used for clinical purposes. Blood 04/09/2025 9:00 AM EDT 04/09/2025 9:06 AM EDT us Pierce Barton MD LAB BLOOD ORDERABLES Final Res ult [facility] [address] [place], [place] * Testosterone, total and free (04/09/2025 9:00 AM EDT) Pathologist [facility] FREE TESTOSTERONE 0.35 <0.13 - 0.87 ng/dL [facility] Comment: (NOTE) ADDITIONAL INFORMATION This test was developed and its performance characteristics determined by [facility] in a manner consistent with CLIA requirements. This test has not been cleared or approved by the U.S. Food and Drug Administration. TESTOSTERONE, TOTAL 20 8 - 60 ng/dL [facility] Comment: (NOTE) ADDITIONAL INFORMATION Testing performed by Liquid Chromatography-Tandem Mass Spectrometry (LC-MS/MS). This test was developed and its performance characteristics determined by [facility] in a manner consistent with CLIA requirements. This test has not been cleared or approved by the U.S. Food and Drug Administration. Blood 04/09/2025 9:00 AM EDT 04/09/2025 9:06 AM EDT us Pierce Barton MD LAB BLOOD ORDERABLES Final Res ult Performing Organization Address City/[facility]/ZIP Co de Phone Number [facility] [place] [address] [place] [address] * DHEA-SULFATE (04/09/2025 9:00 AM EDT) DHEAS 115 9.7 - 159 mcg/dL [facility] [place] Blood 04/09/2025 9:00 AM EDT 04/09/2025 9:06 AM EDT us Pierce Barton MD LAB BLOOD ORDERABLES Final Res ult Performing Organization Address [facility] Co de Phone Number [facility] [place] [address] [place] [address] * Progesterone (04/09/2025 9:00 AM EDT) PROGESTERONE 0.22 ng/mL [facility] Comment: FEMALE: Follicular: 0.057 - 0.893 ng/ml Luteal: 1.83 - 23.9 ng/ml Blood 04/09/2025 9:00 AM EDT 04/09/2025 9:06 AM EDT us Pierce Barton MD LAB BLOOD ORDERABLES Final Res ult Performing Organization Address City/[facility]/ZIP Co de Phone Number [address] [address] * (ABNORMAL) 25-OH vitamin D (04/09/2025 9:00 AM EDT) 25 OH VIT D (TOTAL) 26(L) 30 - 60 ng/mL [facility] Blood 04/09/2025 9:00 AM EDT 04/09/2025 9:06 AM EDT us Pierce Barton MD LAB BLOOD ORDERABLES Final Res ult Performing Organization Address [facility] Co de Phone Number [address] [address] * Estradiol (04/09/2025 9:00 AM EDT) ESTRADIOL 8 pg/mL [facility] Comment: FEMALE: Follicular: Less than 12 to 233 pg/ml Midcycle: 41 - 398 pg/ml Luteal: 22 - 341 pg/ml Postmenopausal: less than 5 - 138 pg/ml Blood 04/09/2025 9:00 AM EDT 04/09/2025 9:06 AM EDT us Pierce Barton MD LAB BLOOD ORDERABLES Final Res ult Performing Organization Address [facility] Co de Phone Number [address] [address] * Free T3 (04/09/2025 9:00 AM EDT) FREE T3 2.5 2.0 - 4.4 pg/mL [facility] Blood 04/09/2025 9:00 AM EDT 04/09/2025 9:06 AM EDT us Pierce Barton MD LAB BLOOD ORDERABLES Final Res ult Performing Organization Address [facility] Co de Phone Number [address] [address] * (ABNORMAL) TSH (04/09/2025 9:00 AM EDT) TSH 0.21(L) 0.27 - 4.20 uIU/mL [facility] Blood 04/09/2025 9:00 AM EDT 04/09/2025 9:06 AM EDT us Pierce Barton MD LAB BLOOD ORDERABLES Final Res ult Performing Organization Address [facility]/ZIP Co de Phone Number [address] [address] * Free T4 (04/09/2025 9:00 AM EDT) FREE T4 0.9 0.9 - 1.7 ng/dL [facility] Blood 04/09/2025 9:00 AM EDT 04/09/2025 9:06 AM EDT us Pierce Barton MD LAB BLOOD ORDERABLES Final Res ult [address] [address] * Ionized calcium (04/09/2025 9:00 AM EDT) IONIZED CALCIUM 1.22 1.14 - 1.37 mmol/L [facility] Blood 04/09/2025 9:00 AM EDT 04/09/2025 9:07 AM EDT us Pierce Barton MD LAB BLOOD ORDERABLES Final Res ult Performing Organization Address [facility] Co de Phone Number [address] [address] * (ABNORMAL) BI MAMMOGRAM SCREENING WITH TOMOSYNTHESIS [...] the patient to arrange for theadditional imaging. us Wilfred Chavez MD IMG MG EXAMS Final R esult from Last 3 Months or Most Recently Relevant to Health Maintenance Insurance [address] [place], [place] [id number] S Care Teams Political Science Professor Relationship Specialty Start Date End Date Wilfred Chavez MD [address] [place] [address] [address] [place] [address] PCP - General 08/01/17 Additional Source Comments The information contained in this document represents components of the legal health record. It is not the complete legal health record.[facility]
--- OUTSIDE RECORDS SUMMARY | 2025-05-04 17:57 | XMS_ITS | Patient Health Record ---
Author Organization Wilfred Chavez MD Address [address] [place], [place] [id number] Care Team Providers Care Deli Associate Name Role Phone Wilfred Chavez Primary Care Provider Allergies Allergen (clinical drug ingredient) Drug/Non Drug Allergy documented on EMR Reaction Allergy Type Onset Date Status ibuprofen Ibuprofen GI Upset Drug Allergy Active Results Component Value Reference Range Notes Complete Blood Count Auto Di ff Reviewed date:03/05/2025 04:53:50 PM Interpretation: Performing Lab:[facility], [address] [place] [phone] Notes/Report: White Blood Count 4.4 4.8-10.8 X10*3/uL [...] NRBC Abs Auto 0.000 0.0-0.012 X10*3/uL Comprehensive Drexel. Panel Fa st Reviewed date:03/05/2025 04:52:52 PM Interpretation: Performing Lab:[address] [phone] Notes/Report: Sodium 141 135-145 mmol/L Potassium 4.3 [...] Panel Reviewed date:03/05/2025 04:54:00 PM Interpretation: Performing Lab:[facility], [address] [place] [phone] Notes/Report: Triglycerides 39 <150 mg/dL Desirable Triglyceride: [...] Folate Reviewed date:03/05/2025 04:53:10 PM Interpretation: Performing Lab:[facility], [address] [place] [phone] Notes/Report: Vitamin B12 > 2000 200-900 pg/mL NORMAL 200-900 PG/ML INDETERMINATE 160-199 PG/ML DEFICIENT < 160 PG/ML Folate 11.1 > or = 4.0 ng/mL Reference Values: > or = 4.0 ng/mL < 4.0 ng/mL suggests folate deficiency Methotrexate, aminopterin and folinic acid (leucovorin) are chemotherapeutic agents whose molecular structures are similar to folate; therefore, the Retail Brand Ambassador folate assay cannot be used for patients using these drugs. Microalbumin, Random Reviewed date:03/05/2025 04:53:26 PM Interpretation: Performing Lab:[facility], [address] [place] [phone] Notes/Report: Creatinine Urine 136.87 Microalbumin Urine 22.0 Microalbum/Creatinine Ratio Ur 16.0 <30 ug/mg cr Albumin/Creatinine Ratio Reference Ranges: Normal: < 30 ug/mg creatinine Microalbuminuria: 30 - 300 ug/mg creatinine Clinical Albuminuria: > 300 ug/mg creatinine Hemoglobin A1c Reviewed date:03/05/2025 04:53:00 PM Interpretation: Performing Lab:[facility], [address] [place] [phone] Notes/Report: Hemoglobin A1c % 5.5 <6.0 % [...] average glucose, using the formula of the [id number]-[id number] Average Glucose study (ADAG), Diabetes Care, Vol.31,#8, 2007 UA ClnCatch+Micro w/rflx Cul t Reviewed date:2025 04:57:40 PM Interpretation: Performing Lab:[facility], [address] [place] [phone] Notes/Report: [id number] Urine, Clean Catch Color Urine Yellow Appearance Urine Clear PH 7.5 5.0-9.0 Glucose Urine UA Negative Negative mg/dL Urine Blood Negative Negative Specific [place] - Urine 1.020 1.005-1.025 Urine Protein Negative Neg-Trace mg/dL Urine Ketones Negative Negative mg/dL Nitrite Urine Negative Negative Leukocyte Esterase Urine Moderate (2+) Negative RBC Urine 0-2 0-2 /HPF WBC Urine 6-10 0-5 /HPF Squamous Epithelial Cell Urine 3-5 0-2 /HPF Bacteria Urine None Seen None Seen Hyaline Casts Urine 0-2 0-2 /LPF TSH reflex Free T4 Reviewed date:03/11/2025 12:29:23 PM Interpretation: Performing Lab:[facility], [address] [place] [phone] Notes/Report: TSH reflex Free T4 0.47 0.32-4.0 uIU/mL Urine Culture Reviewed date:2025 04:57:18 PM Interpretation: Performing Lab:[facility], [address] [place] [phone] Notes/Report: Urine Culture Report Result Urine Culture < 10,000 cfu/ml Hold Gold Reviewed date:03/11/2025 12:29:14 PM Interpretation: Performing Lab:[facility], [address] [place] [phone] Notes/Report: Hold Gold See Note Specimen held untested for 24 hours; Call to request Chemistry testing. Reason For Referral Reason please sandra morgan Diagnosis 1 Gastroenteritis (K52 .9) Diagnosis 2 Abdominal pain (R10. 9) Referral Organization Wilfred Chavez MD Referring Provider First Name Wilfred Referring Provider Last Name Scott Referring Provider Speciality Internal M edicine Referred Provider Ricardo Wu Referred Provider Specialty Gastroentero logy General Notes Viviana Goncalves 1 02:26:30 PM >patient is aware of appt Referral Priority Routine Referral Appointment Date 05/04/2025 Medications Medication SIG (Take, Route, Frequency, Duration) Notes Start Date End Date Status Vitamin D 50 MCG (1999) 1 tablet Orally Once a day for 30 day(s) Not-Taking Magnesium 250 MG 1 tablet with a meal Orally Once a day for 30 day(s) Not-Taking PROJECT GEOPHYSICIST Thyroid 90 MG 1 tablet on an empty stomach Orally Once a day for 30 day(s) Active U17-Xwipth 5000 1 tablet Orally once a day Active Immunizations Vaccine Route Administration Date Status Comme nts DECLINED, FLU Unknown 05/15/2013 Administered Covid Vaccine Unknown 11/03/2020 Administered Rubio Bergeron SARS-COV-2 Pfizer Unknown 07/31/2021 Administered DECLINED, FLU Unknown 05/31/2014 Refused Flu Vaccine Unknown 06/20/2015 Refused Fluarix Quadrivalent Unknown 07/16/2016 Refused Fluarix Quadrivalent Unknown 08/05/2017 Refused TDaP Unknown 08/05/2017 Refused Fluarix Quadrivalent Unknown 08/04/2018 Refused Fluarix Quadrivalent Unknown 08/24/2019 Refused Fluarix Quadrivalent Unknown 05/24/2020 Refused Fluarix Quadrivalent Unknown 08/06/2022 Refused Fluarix Quadrivalent - 150 Unknown 04/19/2025 Refused Social History Tobacco Use: Social History Observation [...] Problem Status W/U Status Risk Notes Problem Basal cell carcinoma (4297310) Basal cell carcinoma (C44.91) Active confirmed Problem Hypothyroid (03715139) Hypothyroid (E03.9) Active confirmed Problem 672672060 Vitamin B12 deficiency (E53.8) Active confirmed Problem 83821831 Post menopausal problems (N95.9) Active confirmed Problem 601042120 Cervical disc disease (M50.90) Active confirmed Problem Peptic ulcer (21576995) Peptic ulcer (K27.9) Active confirmed Problem 109467207 Anemia, unspecified type (D64.9) Active confirmed Problem 710990782 Abnormal mammogram (R92.8) Active confirmed Problem 480245701 Prediabetes (R73.03) Active confirmed Problem 472621525 Cataract, unspecified cataract type, unspecified laterality (H26.9) Active confirmed Vital Signs Blood pressure diastolic 60 mm Hg 04/19/2025 russel ght is up 4 pounds since 03-11-25 Height 66.5 in 04/19/2025 weight is up 4 pounds since 03-11-25 Blood pressure systolic 112 mm Hg 04/19/2025 weig ht is up 4 pounds since 03-11-25 Weight 156 lbs 04/19/2025 weight is up 4 pounds since 03-11-25 BMI 24.8 kg/m2 04/19/2025 weight is up 4 pounds since 03-11-25 Encounters Encounter Location Date Provider Diagnosis Wilfred Chavez MD [address] [place] [address] Drive [address] [place] [phone] 03/05/2025 Wilfred Chavez Blood tests for routine general physical examination Z00.00 ; Vitamin B12 deficiency E53.8 ; Prediabetes R73.03 and Anemia, unspecified type D64.9 Wilfred Chavez MD [address] [place] [address] Drive [address] [place] [id number] 03/11/2025 Wilfred Chavez Annual physical exam Z00.00 ; Hypothyroid E03.9 ; Abdominal pain R10.9 ; Prediabetes R73.03 ; Vitamin B12 deficiency E53.8 and Depression screening Z13.31 Wilfred Chavez MD [address] [place] [address] Drive [address] [place] [id number] 04/19/2025 Wilfred Chavez Peptic ulcer K27.9 and Abdominal bruit R09.89 Wilfred Chavez MD [address] [place], [place] [phone] 03/16/2025 Wilfred Chavez Assessments Encounter Date Diagnosis (ICD Code) Assessment Notes Treatment Notes Treatment Clinical Notes Section Notes 03/05/2025 Blood tests for routine general physical examination (ICD-10 - Z00.00) 03/11/2025 Annual physical exam (ICD-10 - Z00.00) labs reviewed and discussed with patient 03/11/2025 Hypothyroid (ICD-10 - E03.9) pending lab testing 04/19/2025 Peptic ulcer (ICD-10 - K27.9) if doesn't show anything then send back to dr wu, pending diagnostic study 04/19/2025 Abdominal bruit (ICD-10 - R09.89) had cat scan that showed no abnormalities 03/05/2025 Vitamin B12 deficiency (ICD-10 - E53.8) 03/11/2025 Abdominal pain (ICD-10 - R10.9) pending diagnostic testing, US order faxed to [facility] CS dept 03/05/2025 Prediabetes (ICD-10 - R73.03) 03/11/2025 Prediabetes (ICD-10 - R73.03) stable, n need for medication at this time 03/05/2025 Anemia, unspecified type (ICD-10 - D64.9) 03/11/2025 Vitamin B12 deficiency (ICD-10 - E53.8) Stable, will continue current regiment 03/11/2025 Depression screening (ICD-10 - Z13.31) negative screen Plan Of Treatment Pending Test Test Name Order Date MRI CERVICAL SPINE W&WO CONTRAST 020 MRI SHOULDER RT WITH CONTRAST 01/11/2020 XR GI SERIES 04/19/2025 BONE DENSITY DEXA 08/28/2019 BONE DENSITY DEXA 12/22/2020 US ABD 03/11/2025 XR DEXA axial skeleton 11/08/2020 Next Appt Details Provider Name:Wilfred duenas, 05/14/2025 01:45:00 PM, [address], [address], [place], [place], [phone], Provider Name:Wilfred duenas, 03/07/2026 07:00:00 AM, [address], [address], [place], [place], [phone], Provider Name:Wilfred Collado ottonielr, 03/14/2026 09:30:00 AM, [address], [address], [place], [place], [phone], Insurance Providers Payer Name Payer Address Payer Phone Subscriber Number Group Number Insured Name Patient Relationship to Insured Coverage Start Date Coverage End Date [address] [place] [phone] [id number] Tiffanie Kirby Self - patient is the insured Medical (General) History Medical History History ICD Code 03/18/2013 Colonoscopy - repeat in 10 yea rs going to do cologard 07/2015 Pap Smear w/ Dr.Lisa Butterfield,[facility] EDI PROGRAMMER ([phone])
--- OUTSIDE RECORDS SUMMARY | 2025-05-04 17:58 | XMS_ITS | Encounter Summary ---
Author Organization [facility] Address [address] [place] [address] Phone Care Team Providers Care Chemistry Quality Control Technician Name Role Phone Wilfred Chavez MD Primary Care Provider Encounter Details Date Type Department Care Team (Late Contact Info) Description 07/20/2020 Transcribe Orders Virtual Department [address] [place] [address] Wilfred Chavez MD [address] [place] [address] [place] [address] Exposure to SARS-associated coronavirus (Primary Dx) Social History Tobacco Use Types [...] (Late Contact Info) Description 10/08/2024 Procedure Pass [address] [address] 06/04/2025 4:00 PM EST Appointment [address] [address] Wilfred Chavez MD [address] [place] [address] [place] [phone] documented as of this encounter Results * COVID-19 PCR Order (07/20/2020 3:25 PM EST) COVID Testing Status Sent to [facility] Symptomatic? NO [facility] Other 07/20/2020 3:25 PM EST 07/20/2020 6:20 PM EST us Wilfred Chavez MD BODY FLUIDS AND STOOLS ORDERABLES Edited Result - Final [facility] [address] [place] [address] documented in this encounter Visit Diagnoses Diagnosis Exposure to SARS-associated coronavirus- Primary documented in this encounter Additional Health Concerns Infection Onset Date Last Indicated Resolved Time CoV-Exposed Comment:Recent close contact 07/20/2020 07/20/2020 08/03/2020 1:24 AM EST CoV-Risk 10/22/2021 10/22/2021 11/02/2021 1:23 AM EDT CoV-Risk 07/26/2022 07/26/2022 08/06/2022 1:22 AM EST documented as of this encounter Care Teams Chemistry Quality Control Technician Relationship Specialty Start Date End Date Wilfred Chavez MD [address] [place] [address] Dr DixonyokeTRAVON [id number] PCP - General 08/01/17 documented as of this encounter Additional Source Comments The information contained in this document represents components of the legal health record. It is not the complete legal health record.[facility]
--- OUTSIDE RECORDS SUMMARY | 2025-05-04 17:58 | XMS_ITS | Encounter Summary ---
Author Organization [facility] Address [address] [place] [address] Phone Care Team Providers Care Financial Legal Assistant Name Role Phone Wilfred Chavez MD Primary Care Provider Encounter Details Date Type Department Care Team (Late st Contact Info) Description 04/08/2020 Procedure Pass [address] [address] Social History Tobacco Use Types Packs/Day Years [...] st Contact Info) Description 10/08/2024 Procedure Pass [address] [address] 06/04/2025 4:00 PM EST Appointment [address] [address] Wilfred Chavez MD [address] [place] [address] [place] [phone] documented as of this encounter Visit Diagnoses Not on filedocumented in this encounter Additional Health Concerns Infection Onset Date Last Indicated Resolved Time CoV-Exposed Comment:Recent close contact 07/20/2020 07/20/2020 08/03/2020 1:24 AM EST CoV-Risk 10/22/2021 10/22/2021 11/02/2021 1:23 AM EDT CoV-Risk 07/26/2022 07/26/2022 08/06/2022 1:22 AM EST documented as of this encounter Care Teams Financial Legal Assistant Relationship Specialty Start Date End Date Wilfred Chavez MD [address] [place] [address] [place] [address] PCP - General 08/01/17 documented as of this encounter Additional Source Comments The information contained in this document represents components of the legal health record. It is not the complete legal health record.[facility]
--- OUTSIDE RECORDS SUMMARY | 2025-05-04 17:58 | XMS_ITS | Encounter Summary ---
Author Organization [facility] Address [address] [place] [address] Phone Care Team Providers Care Golf Club Facer Name Role Phone Wilfred Chavez MD Primary Care Provider Encounter Details Date Type Department Care Team (Late st Contact Info) Description 12/02/2023 Ancillary Orders [facility], [facility]- [address] [address] Wilfred Chavez MD [address] [place] [address] [place] [address] Abnormal finding on mammography (Primary Dx) Social History Tobacco Use Types [...] st Contact Info) Description 10/08/2024 Procedure Pass [address] [address] 06/04/2025 4:00 PM EST Appointment [address] [address] Wilfred Chavez MD [address] [place] [address] [place] [address] documented as of this encounter Results * BI MAMMOGRAM DIAGNOSTIC WITH TOMOSYNTHESIS WITH CAD (LEFT) (12/26/2023 2:30 PM EDT) Anatomical Region Laterality Modality Breast Left Left Mammography 12/26/2023 3:15 PM EDT Impressions 12/26/2023 3:16 PM EDT Findings questioned on screening mammography in the left breast do not persist. No mammographic evidence of malignancy on the left. Annual screening mammography is recommended. BI-RADS 1 NEGATIVE Results and recommendations were communicated to the patient at time of examination. Narrative 12/26/2023 3:16 PM EDT BI MAMMOGRAM DIAGNOSTIC WITH TOMOSYNTHESIS WITH CAD (LEFT) Additional patient information: Focal asymmetry on recent screening mammogram. COMPARISON: Comparison is made with relevant prior imaging. Breast composition: The breast tissue is extremely dense which lowers the sensitivity of mammography. FINDINGS: Left Mammogram: The focal asymmetry seen on screening mammography in the left breast does not persist, consistent with superimposition of normal breast tissue. There is no underlying mass, architectural distortion, suspicious calcifications or other concerning findings. Procedure Note Lorri Chowdary MD - 12/26/2023 BI MAMMOGRAM DIAGNOSTIC WITH TOMOSYNTHESIS WITH CAD (LEFT) Additional patient information: Focal asymmetry on recent screeningmammogram. COMPARISON: Comparison is made with relevant prior imaging. Breast composition: The breast tissue is extremely dense which lowers thesensitivity of mammography. FINDINGS: Left Mammogram: The focal asymmetry seen on screening mammography in the left breast doesnot persist, consistent with superimposition of normal breast tissue.There is no underlying mass, architectural distortion, suspiciouscalcifications or other concerning findings. IMPRESSION: Findings questioned on screening mammography in the left breast do notpersist. No mammographic evidence of malignancy on the left. Annualscreening mammography is recommended. BI-RADS 1 NEGATIVE Results and recommendations were communicated to the patient at time ofexamination. us Wilfred Chavez MD IMG MG EXAMS Final R esult documented in this encounter Visit Diagnoses Diagnosis Abnormal finding on mammography- Primary Abnormal finding on mammography documented in this encounter Care Teams Golf Club Facer Relationship Specialty Start Date End Date Wilfred Chavez MD [address] [place] [address] [place] [address] PCP - General 08/01/17 documented as of this encounter Additional Source Comments The information contained in this document represents components of the legal health record. It is not the complete legal health record.[facility]
--- OUTSIDE RECORDS SUMMARY | 2025-05-04 17:58 | XMS_ITS | Encounter Summary ---
Author Organization [facility] Address [address] [place] [address] Phone Care Team Providers Care Security Installation Sales Technician Name Role Phone Wilfred Chavez MD Primary Care Provider Encounter Details Date Type Department Care Team (Late st Contact Info) Description 09/24/2023 Procedure Pass [facility], [address] [address] Social History Tobacco Use Types Packs/Day Years [...] st Contact Info) Description 10/08/2024 Procedure Pass [address] [address] 06/04/2025 4:00 PM EST Appointment [address] [address] Wilfred Chavez MD [address] [place] [address] [place] [address] documented as of this encounter Visit Diagnoses Not on filedocumented in this encounter Care Teams Security Installation Sales Technician Relationship Specialty Start Date End Date Wilfred Chavez MD [address] [place] [address] [place] [address] PCP - General 08/01/17 documented as of this encounter Additional Source Comments The information contained in this document represents components of the legal health record. It is not the complete legal health record.[facility]
--- OUTSIDE RECORDS SUMMARY | 2025-05-04 17:58 | XMS_ITS | Encounter Summary ---
Author Organization [facility] Address [address] [place] [address] Phone Care Team Providers Care Jackhammer Splitter Operator Name Role Phone Wilfred Chavez MD Primary Care Provider Encounter Details Date Type Department Care Team (Late st Contact Info) Description 09/24/2023 Transcribe Orders Virtual Department [address] [place] [address] Wilfred Chavez MD [address] [place] [address] [place] [address] Breast screening (Primary Dx) Social History Tobacco Use Types Packs/Day Years Used Date Smoking Tobacco: Never Smokeless Tobacco: Never Alcohol Use Standard Drinks/Week Comments Yes 0 (1 standard drink = 0.6 oz pur [...] st Contact Info) Description 10/08/2024 Procedure Pass [address] [address] 06/04/2025 4:00 PM EST Appointment [address] [address] Wilfred Chavez MD [address] [place] [address] [place] [address] documented as of this encounter Results * (ABNORMAL) BI MAMMOGRAM SCREENING WITH [...] in this encounter Visit Diagnoses Diagnosis Breast screening- Primary Breast screening, unspecified Breast screening Breast screening, unspecified documented in this encounter Care Teams Jackhammer Splitter Operator Relationship Specialty Start Date End Date Wilfred Chavez MD [address] [place] [address] Dr Zhang, [place] [address] PCP - General 08/01/17 documented as of this encounter Additional Source Comments The information contained in this document represents components of the legal health record. It is not the complete legal health record.[facility]
--- OUTSIDE RECORDS SUMMARY | 2025-05-04 17:58 | XMS_ITS | Encounter Summary ---
Author Organization [facility] Address [address] [place] [address] Phone Care Team Providers Care Stained Glass Joiner Name Role Phone Wilfred Chavez MD Primary Care Provider Encounter Details Date Type Department Care Team (Late Contact Info) Description 04/08/2020 Ancillary Orders Virtual Department [address] [place] [address] Wilfred Chavez MD [address] [place] [address] [place] [id number] Breast screening Social History Tobacco Use Types [...] (Late Contact Info) Description 10/08/2024 Procedure Pass [address] [address] 06/04/2025 4:00 PM EST Appointment [address] [address] Wilfred Chavez MD [address] [place] [address] [place] [id number] documented as of this encounter Results * BI MAMMOGRAM SCREENING WITH TOMOSYNTHESIS WITH CAD (BILATERAL) (05/20/2020 3:18 PM EDT) Anatomical Region Laterality Modality Breast Left, Breast Right, Breast Bilateral Bila teral Mammography 05/20/2020 8:28 PM EDT Impressions 05/20/2020 8:30 PM EDT BILATERAL BREASTS: Negative, no evidence of malignancy. Normal interval follow- up is recommended in 12 months. BI-RADS: BI-RADS CATEGORY: 1 - Negative. DENSITY: The breast tissue is extremely dense, which lowers the sensitivity of mammography. Narrative 05/20/2020 8:30 PM EDT STUDY: Bilateral screening mammography with tomosynthesis and CAD TECHNIQUE: Bilateral full-field digital screening mammography is obtained and read in conjunction with computer-aided detection. Tomosynthesis as well as 2-D C view imaging were obtained. COMPARISON: Comparison made to multiple prior, most recent November 28, 2018, and most remote September 23, 2013. BREAST COMPOSITION: The breasts are extremely dense, which lowers the sensitivity of mammography. BILATERAL BREASTS: No significant masses, calcifications or other abnormalities are seen. Procedure Note Haroldo Atkins MD - 05/20/2020 STUDY: Bilateral screening mammography with tomosynthesis and CAD TECHNIQUE: Bilateral full-field digital screening mammography is obtainedand read in conjunction with computer-aided detection. Tomosynthesis aswell as 2-D C view imaging were obtained. COMPARISON: Comparison made to multiple prior, most recent November 28, 2018,and most remote September 23, 2013. BREAST COMPOSITION: The breasts are extremely dense, which lowers thesensitivity of mammography. BILATERAL BREASTS: No significant masses, calcifications or otherabnormalities are seen. IMPRESSION: BILATERAL BREASTS: Negative, no evidence of malignancy. Normal intervalfollow-up is recommended in 12 months. BI-RADS: BI-RADS CATEGORY: 1 - Negative. DENSITY: The [...] documented as of this encounter Care Teams Stained Glass Joiner Relationship Specialty Start Date End Date Wilfred Chavez MD [address] [place] [address] [place] [id number] PCP - General 08/01/17 documented as of this encounter Additional Source Comments The information contained in this document represents components of the legal health record. It is not the complete legal health record.[facility]
== END 2025-05-04 14:40 | disposition home or self-care (01) ==
LOC: HO.LAB 14:39
PROVIDERS: PCP Internal Medicine; Visit Provider Internal Medicine
DX: D64.9 Anemia, unspecified (principal)
CPT/HCPCS: 36415; 82728; 83540; 85025

== ENCOUNTER 2025-05-27 12:56 | Day surgery (SDC) | payer OTHER, SELFPAY ==
--- NOTE | 2025-05-25 11:12 | HO.ANESPROP2 ---
Documented by User: Adwoa Hinton NP 05/25/25 11:15 HPI - Anesthesia Eval Consult details Narrative: 60 yr old female for upper endoscopy [facility] Past Medical History Medical History (Updated 05/25/25 @ 11:24 by Stacie Reese RN) H. pylori infection Thyroid disease Gallbladder polyp Surgical History Surgical History (Updated 05/25/25 @ 11:22 by Stacie Reese RN) H/O colonoscopy History of esophagogastroduodenoscopy (EGD) Social History Social History Patient Tobacco Use Status: Never used Tobacco Have you been hit, kicked, punched, or otherwise hurt by someone within the past year? If so, by whom?: No Are you DNR?: No Advance Directives: No Advance Directives Information Provided: Yes Meds Allergies Allergy/AdvReac Type Severity Reaction Status Date / Time No Known Allergies Allergy Unverified 05/22/25 21:33 Home Medications ?Medication ?Instructions ?Recorded ?Confirmed ?Last Taken ?Type thyroid (pork) 90 mg tablet 90 mg PO DAILY 05/25/25 05/27/25 05/27/25 History ([place] Thyroid) Exam Pertinent Lab Results Pertinent Lab Results: Laboratory Tests 03/05/25 05/04/25 07:30 14:52 WBC 5.2 RBC 3.93 L Hgb 12.7 Hct 37.6 Plt Count 287 Sodium 141 Potassium 4.3 Chloride 107 Carbon Dioxide 28 BUN 15 Creatinine 0.76 Documented by User: Brody Reyes MD 05/27/25 13:57 [facility] Past Medical History Medical History (Updated 05/25/25 @ 11:24 by Stacie Reese RN) H. pylori infection Thyroid disease Gallbladder polyp Family History Family history of problems with anesthesia: No Surgical History Surgical History (Updated 05/25/25 @ 11:22 by Stacie Reese RN) H/O colonoscopy History of esophagogastroduodenoscopy (EGD) History of Problems with Anesthesia: No Social History Social History Patient Tobacco Use Status: Never used Tobacco Have you been hit, kicked, punched, or otherwise hurt by someone within the past year? If so, by whom?: No Are you DNR?: No Advance Directives: No Advance Directives Information Provided: Yes Meds Allergies Allergy/AdvReac Type Severity Reaction Status Date / Time No Known Allergies Allergy Unverified 05/22/25 21:33 Home Medications ?Medication ?Instructions ?Recorded ?Confirmed ?Last Taken ?Type thyroid (pork) 90 mg tablet 90 mg PO DAILY 05/25/25 05/27/25 05/27/25 History ([place] Thyroid) Exam Airway Mallampati Class: I TM Dist: >3cm Neck ROM: Full Loose/Missing/Broken Teeth: No Heart: ok Lungs: ok Assessment and Plan Assessment Anesthesia Assessment: Anesthesia Plan Discussed and Chart Reviewed Final Anesthetic Review Family History of Problems with Anesthesia: No History of Problems with Anesthesia: No NPO: Yes ASA Class: II Final Preanesthetic Review: No Changes in Pt Med Stat, Meds/Allgs Chart Reviewed, Consent Obtained/Reviewed and Anes Risks/Benef Reviewed Patient Risk: Low Procedure Risk: Intermediate Anesthetic Plan Anesthetic Plan: Agree w/ Assess. and Plan and TIVA Disposition: Standard PACU
[2025-05-25 11:24] VITALS: BMI 23.4
[2025-05-27 13:09] VITALS: PULSE 62; RESP 18; TEMP 36.1; O2SAT 99; BMI 23.2
[2025-05-27] MEDS: Lactated Ringers 1,000 ML 100 ML IVCONT (13:31)
[2025-05-27 14:48] VITALS: BP 116/54; PULSE 72; RESP 15; TEMP 36.4; O2SAT 99
--- NOTE | 2025-05-27 14:48 | PM.OP ---
Brief Operative Note Date of Service: 05/27/25 Pre-op diagnosis: LUQ abdominal pain Post-op diagnosis: other (Small hiatal hernia, R/O H. pylori) Procedure: EGD with biopsies Surgeon: Ricardo Hagen MD Anesthesia: MAC Was an Electrostatic Paint Operator used for this Procedure?: No Estimated blood loss (mL): 2.0 Pathology: other (A. Gastric antrum B. EG Junction at 39cm) Condition: stable Disposition: PACU
[2025-05-27 15:03] VITALS: BP 130/42; PULSE 67; RESP 12; O2SAT 99
--- NOTE | 2025-05-28 01:12 | OP_ITS ---
DATE OF SERVICE: 05/27/2025 SURGEON: Ricardo Hagen MD INDICATIONS: The patient presents for evaluation of left upper quadrant pain. Full consent was obtained from her for this, including risks of bleeding and perforation. PREOPERATIVE DIAGNOSIS: Left upper quadrant pain. POSTOPERATIVE DIAGNOSIS: PROCEDURE PERFORMED: Esophagogastroduodenoscopy with biopsies. ESTIMATED BLOOD LOSS: COMPLICATIONS: ANESTHESIA: Medication used, monitored anesthesia care. ASSISTANTS: SPECIMENS: POSTOPERATIVE DIAGNOSES: Left upper quadrant pain, small hiatal hernia, rule out Helicobacter pylori. DESCRIPTION OF PROCEDURE: The patient was placed in the left lateral decubitus position. The Olympus video gastroscope was passed in the posterior oropharynx and upper esophagus under direct vision. The scope was passed slowly to the distal esophagus. The gastroesophageal junction was seen at 39 cm. There was some minimal edema and erythema but no evidence of any esophagitis nor Daniel esophagus. The scope entered the stomach, there was a small hiatal hernia. The scope was advanced to pylorus. The duodenum was cannulated to the descending portion. The duodenum including the bulb appeared normal without mass or ulceration. The scope was withdrawn back to the stomach. The gastric antrum and body appeared normal with good peristalsis. Biopsies were obtained from the antrum. The scope was retroflexed visualizing the proximal stomach carefully which appeared normal, without any sign of mass or ulceration. The scope was straightened and withdrawn back to the esophagus. Biopsies were obtained at the EG junction at 39 cm. Proximal to this, the esophageal mucosa appeared normal. The scope was withdrawn from the patient. She tolerated the procedure well and was returned to recovery area in stable condition. IMPRESSION: Small hiatal hernia, otherwise normal upper endoscopy. Rule out Helicobacter pylori. PLAN: The results of the biopsies will be checked. At this point, I did not see any findings that would account for her left upper quadrant pain. Even if H pylori is present, I am not sure that treating that would help her feel better. She did have recent laboratories revealing a normal CBC and iron profile. I shall recommend to her that she undergo a colonoscopy at some point for screening given that her last 1 was over 10 years ago. In regard to the left upper quadrant pain, I would hold off on starting any medication for that given her age and negative exam. MD ERICA Villareal/JV / [phone] TERESA
== END 2025-05-27 16:00 | disposition home or self-care (01) ==
PROVIDERS: PCP Internal Medicine; Visit Provider Internal Medicine
PROC: 0DJ08ZZ Inspection of Upper Intestinal Tract, Via Natural or Artificial Opening Endoscopic (ICD-10-PCS; CPT 43235; principal; 2025-05-27 14:10)
DX: R10.12 Left upper quadrant pain (principal); D64.9 Anemia, unspecified; K44.9 Diaphragmatic hernia without obstruction or gangrene
CPT/HCPCS: 43239; 88305; 88313; 88342; J2003; J2704

== ENCOUNTER 2025-06-01 08:51 | Outpatient (REF) | payer OTHER, SELFPAY ==
--- OUTSIDE RECORDS SUMMARY | 2023-12-09 02:00 | XMS_ITS ---
Author Organization Wilfred Chavez MD Address [address] [place], [place] [id number] Care Team Providers Care [employer]er Name Role Phone Wilfred Chavez Primary Care Provider [phone] Results Component Value Reference Range Notes Complete Blood Count Auto Di ff Reviewed date:12/09/2023 12:41:16 PM Interpretation: Performing Lab:[facility], [address] [place] [id number] Notes/Report: White Blood Count 3.9 4.8-10.8 X10*3/uL Red Blood Count 3.83 4.20-5.50 X10*6/uL Hemoglobin 12.4 12.0-16.0 g/dl Hematocrit 37.1 37.0-47.0 % Mean Corpuscular Volume 96.9 80.0-98.0 fL Mean Corpuscular Hemoglobin 32.4 27.0-33.0 pg Mean Corpuscular HGB Conc 33.4 31.0-35.0 g/dl Red Cell Distribution Width 13.2 11.0-16.0 % Platelet Count 290 160-400 X10*3/uL Mean Platelet Volume 9.7 9.4-12.3 fL Neutrophils Percent Auto 52.6 45-73 % Imm Gran Pct Auto 0.0 0.0-0.4 % Lymphocytes Percent Auto 35.0 20-40 % Monocytes Percent Auto 10.9 2-11 % Eosinophils Percent Auto 1.0 0-4 % Basophils Percent Auto 0.5 0-2 % NRBC Pct Auto 0.0 0.0-0.2 /100WBC Neutrophils Absolute Auto 2.1 2.0-8.3 x10*3/u L Imm Gran Abs Auto 0.00 0.00-0.03 X10*3/uL Lymphocytes Absolute Auto 1.4 1.2-4.9 X10*3/u L Monocytes Absolute Auto 0.4 0.1-1.2 X10*3/uL Eosinophils Absolute Auto 0.0 0.0-0.4 X10*3/u L Basophils Absolute Auto 0.0 0.0-0.2 X10*3/uL NRBC Abs Auto 0.000 0.0-0.012 X10*3/uL Comprehensive [place]. Panel Fa st Reviewed date:12/09/2023 01:07:40 PM Interpretation: Performing Lab:[address] [phone] Notes/Report: Sodium 143 135-145 mmol/L Potassium 4.1 3.3-5.1 mmol/L Chloride 107 96-108 mmol/L Carbon Dioxide 25 22-29 mmol/L Anion Gap 15 12-20 Blood Urea Nitrogen 12 9-16 mg/dL Creatinine 0.70 0.5-1.4 mg/dL Estimated Glomerular Filt Rate > 60 NOTE: For -[place] individuals, multiply the result by 1.210. Chronic Kidney Disease: Estimated GFR < 60 mL/min/1.73m2 Severe Kidney Disease: Estimated GFR < 15 mL/min/1.73m2 Glucose Fasting 98 60-99 mg/dL Calcium 9.5 8.4-10.2 mg/dL Bilirubin Total 0.6 0.0-1.0 mg/dL Aspartate Amino Transferase 16 5-31 U/L Alanine Aminotransferase 11 0-31 U/L Total Protein 7.0 6.5-8.0 g/dL Albumin Level 4.2 3.5-5.0 g/dL Alkaline Phosphatase 76 39-117 U/L Lipid Panel Reviewed date:12/09/2023 12:40:37 PM Interpretation: Performing Lab:[address] [phone] Notes/Report: Triglycerides 44 <150 mg/dL Desirable Triglyceride: less than 150 mg/dL Borderline High Triglyceride 150-199 mg/dL High Triglyceride: 200-499 mg/dL Very High Triglyceride: greater than or equal to 5OO mg/dL Cholesterol 199 <200 mg/dL Desirable Cholesterol: less than 200 mg/dL Borderline High Cholesterol: 200-239 mg/dL High Cholesterol: greater than 239 mg/dL LDL Cholesterol Calculated 111 <100 mg/dL Desirable LDL: less than 100 mg/dL Near Optimal/Above Optimal LDL: 110-129 mg/dL Borderline High LDL: 130-159 mg/dL High LDL: 160-189 mg/dL Very High LDL: greater than or equal to 190 mg/dL HDL Cholesterol 80 >40 mg/dL Desirable HDL: greater than 40 mg/dL Note: This HDL assay may give artificially low results in patients with liver disease. Microalbumin, Random Reviewed date:12/09/2023 12:40:46 PM Interpretation: Performing Lab:[address] [phone] Notes/Report: Creatinine Urine 203.34 Microalbumin Urine 17.0 Microalbum/Creatinine Ratio Ur 8.3 <30 ug/mg cr Albumin/Creatinine Ratio Reference Ranges: Normal: < 30 ug/mg creatinine Microalbuminuria: 30 - 300 ug/mg creatinine Clinical Albuminuria: > 300 ug/mg creatinine Hemoglobin A1c Reviewed date:12/09/2023 12:40:54 PM Interpretation: Performing Lab:[address] [phone] Notes/Report: Hemoglobin A1c % 5.4 <6.0 % Hemoglobin A1C Reference Range Adults: 4.8 - 6.0 % Non diabetic: < 6.0 % Goal: < 7.0 % Additional Action Suggested: > 8.0 % Note: Hemoglobin A1c results are invalid for patients with abnormal amounts of HbF. Blood transfusions may impact the HbA1c concentration in the patient sample. Estimated Average Glucose 108 eAG = Estimated average glucose which is %A1C expressed as average glucose, using the formula of the S6T-[id number] Average Glucose study (ADAG), Diabetes Care, Vol.31,#8, Feb. 2007 UA ClnCatch+Micro w/rflx Cul t Reviewed date:12/09/2023 12:41:50 PM Interpretation: Performing Lab:[facility], [address] [place] [phone] Notes/Report: Urine, Clean Catch Color Urine Yellow Appearance Urine Clear PH 5.5 5.0-9.0 Glucose Urine UA Negative Negative mg/dL Urine Blood Negative Negative Specific [place] - Urine 1.025 1.005-1.025 Urine Protein Negative Neg-Trace mg/dL Urine Ketones Negative Negative mg/dL Nitrite Urine Negative Negative Leukocyte Esterase Urine Negative Negative RBC Urine 0-2 0-2 /HPF WBC Urine 0-5 0-5 /HPF Squamous Epithelial Cell Urine 0-2 0-2 /HPF Bacteria Urine None Seen None Seen Hyaline Casts Urine 0-2 0-2 /LPF REASON FOR VISIT yearly labs Encounters Encounter Location Date Provider Diagnosis Wilfred Chavez MD [address] [place] [phone] 12/09/2023 Wilfred Chavez Blood tests for routine general physical examination Z00.00 and Prediabetes R73.03 Assessments Encounter Date Diagnosis (ICD Code) Assessment Notes Treatment Notes Treatment Clinical Notes Section Notes 12/09/2023 Blood tests for routine general physical examination (ICD-10 - Z00.00) 12/09/2023 Prediabetes (ICD-10 - R73.03) Plan Of Treatment Next Appt Details Provider Name:Wilfred duenas, 06/15/2025 02:00:00 PM, [address] [place] [address], [address], [phone], Provider Name:Wilfred duenas, 03/07/2026 07:00:00 AM, [address] [place] [address], [phone], Provider Name:Wilfred duenas, 03/14/2026 09:30:00 AM, [address] [place] [address], [phone], Progress Notes * Tiffanie KIRBY MDOB: [birth year] (60 yo F)Acc No.[id number]:12/09/2023 Progress Note Patient: Dada TALYAMarcosTiffanie Provider: Cristian Chavez MD :1965 A ge:58 Y S ex:Female Date:12/09/2023 Address:[address] [place], [place] [phone] Subjective: * Chief Complaints: * 1 . Yearly labs. * Medical History: Objective: * Vitals: Assessment: * Assessment: 1. B lood tests for routine general physical examination - Z00.00 (Primary) 2 .?Prediabetes - R73.03 Plan: * Treatment: 2. P rediabetes L AB: Complete Blood Count Auto Diff (Collection Date & Time - 12/09/2023) L AB: Comprehensive [place]. Panel Fast (Collection Date & Time - 12/09/2023) L AB: Lipid Panel (Collection Date & Time - 12/09/2023) L AB: Microalbumin, Random (Collection Date & Time - 12/09/2023) L AB: Hemoglobin A1c (Collection Date & Time - 12/09/2023) L AB: UA ClnCatch+Micro w/rflx Cult (Collection Date & Time - 12/09/2023) * Procedure Codes: 3 6415 VENIPUNCT, ROUTINE* * * The named appointment provid er may or may not be the originator of this progress note, and it is not deemed complete until electronically signed by the appointment provider. Sign off status: Pending * Provider: Cristian Chavez MD Date: 0 12/09/2023 Generated for Otto moffett/Shanon/Geovanny on: 1 08/01/2024 09:24 AM EST
--- OUTSIDE RECORDS SUMMARY | 2023-12-16 03:30 | XMS_ITS ---
Author Organization Wilfred Chavez MD Address [address] [place] [phone] Care Team Providers Care Cosmetics Supervisor Name Role Phone Wilfred Chavez Primary Care Provider [phone] Allergies Allergen (clinical drug ingredient) Drug/Non Drug Allergy documented on EMR Reaction Allergy Type Onset Date Status ibuprofen Ibuprofen GI Upset Drug Allergy Active Reason For Referral Reason SUPERFICIAL SKIN LES ION EARLY BASAL CELL Diagnosis 1 Superficial skin les ion (L98.9) Referral Organization Wilfred Chavez MD Referring Provider First Name Wilfred Referring Provider Last Name Scott Referring Provider Speciality Internal M edicine Referred Provider [facility] Referred Provider Specialty Dermatology General Notes Jacque Parada 12/19/2023 10:48:51 AM EDT > A MESSAGE HAS BEEN LEFT WITH DORIAN MOY ON THEIR LINE IN REGARDS TO SCHEDULING AN APPT, Jacque Parada 12/26/2023 09:44:56 AM EDT > PER TIFFANIE BIRMINGHAM HAS CALLED YARELY TO SCHEDULE AND SHE HAS NOT RETURNED THEIR CALL, Jacque Parada 01/09/2024 12:09:08 PM EDT > OFFICE NOTE RECD FROM 01/06 VISIT Referral Priority Routine Referral Appointment Date 01/07/2024 REASON FOR VISIT annual visit, No Covid symptoms Medications Medication SIG (Take, Route, Frequency, Duration) Notes Start Date End Date Status X46-Llvtnl 5000 1 tablet Orally once a day Active EQUINE DENTIST Thyroid 90 MG 1 tablet on an empty stomach Orally Once a day for 30 day(s) Active Vitamin D 50 MCG (1999) 1 tablet Orally Once a day for 30 day(s) Active Magnesium 250 MG 1 tablet with a meal Orally Once a day for 30 day(s) Not-Taking Social History Tobacco Use: Social History Observation Description Date Details (start date - stop date) Never Smoker NA - NA Tobacco Use/Smoking Question Answer Notes Patient is a nonsmoker Additional Findings: Tobacco Non-User Cu rrent non-smoker, currently using no form of tobacco Alcohol Screen Question Answer Notes Did you have a drink contain ing alcohol in the past year? Yes How often did you have a dri nk containing alcohol in the past year? Monthly or less (1 point) How many drinks did you have on a typical day when you were drinking in the past year? 1 or 2 drinks (0 point) How often did you have 6 or more drinks on one occasion in the past year? Never (0 point) Points 1 Interpretation Negative Problems Problem Type SNOMED Code ICD Code Onset Dates Problem Status W/U Status Risk Notes Problem [id number] Abnormal mammogram (R92.8) Active confirmed Vital Signs Blood pressure systolic 112 mm Hg 12/16/19 24 Blood pressure diastolic 64 mm Hg 024 Height 66.5 in 12/16/2023 Weight 149 lbs 12/16/2023 BMI 23.69 kg/m2 12/16/2023 weight is down 3 pounds [facility] 12-11-22 Encounters Encounter Location Date Provider Diagnosis Wilfred Chavez MD [address] [place] [address] [place] [phone] 12/16/2023 Wilfred Chavez Encounter for screening for malignant neoplasm of colon Z12.11 ; Annual physical exam Z00.00 ; Encounter for screening for malignant neoplasm of rectum Z12.12 ; Abnormal mammogram R92.8 ; Superficial skin lesion L98.9 ; Prediabetes R73.03 ; Vitamin B12 deficiency E53.8 ; Anemia, unspecified type D64.9 and Depression screening Z13.31 Assessments Encounter Date Diagnosis (ICD Code) Assessment Notes Treatment Notes Treatment Clinical Notes Section Notes 12/16/2023 Encounter for screening for malignant neoplasm of colon (ICD-10 - Z12.11) ORDER FAXED TO [facility] 12/16/2023 Annual physical exam (ICD-10 - Z00.00) labs reviewed and dicussed with patient 12/16/2023 Encounter for screening for malignant neoplasm of rectum (ICD-10 - Z12.12) order faxed to [facility] 12/16/2023 Abnormal mammogram (ICD-10 - R92.8) nothing palpable/ is going for futher evaluation 12/16/2023 Superficial skin lesion (ICD-10 - L98.9) refer to [facility] in [place]/ appears to be an early basal cell cancer/ REFERRAL TO [facility]ED [facility] 12/16/2023 Prediabetes (ICD-10 - R73.03) stable, no need for medication at this time 12/16/2023 Vitamin B12 deficiency (ICD-10 - E53.8) doing well, will continue current egiment 12/16/2023 Anemia, unspecified type (ICD-10 - D64.9) stable, will continue to monitor 12/16/2023 Depression screening (ICD-10 - Z13.31) negative screen Plan Of Treatment Medication Medication Name Sig Start Date Stop Date Notes M76-Itgufi 5000 1 tablet Orally once a day Treatment Notes Assessment Notes Encounter for screening for malignant neoplasm of colon ORDER FAXED TO [facility] Annual physical exam labs reviewed and d icussed with patient Encounter for screening for malignant neoplasm of rectum order faxed to [facility] Abnormal mammogram nothing palpable/ is going for futher evaluation Superficial skin lesion refer to [facility] in [place]/ appears to be an early basal cell cancer/ REFERRAL TO [facility]ED [facility] Prediabetes stable, no need for medication at this time Vitamin B12 deficiency doing well, will continue current egiment Anemia, unspecified type stable, will co ntinue to monitor Depression screening negative screen Referrals Referral Date Details 12/16/2023 12/16/2023, PRIMITIVO IAL SKIN LESION EARLY BASAL CELL, [facility] Next Appt Details Follow Up: 1 Year, Reason: Provider Name:Wilfred duenas, 06/15/2025 02:00:00 PM, [address] [place] [address], [address], [place], [place], [phone], Provider Name:Wilfred duenas, 03/07/2026 07:00:00 AM, [address] [place] [address], [address], [place], [place], [phone], Provider Name:Wilfred Collado ier, 03/14/2026 09:30:00 AM, [address], [address], [place], [place], [phone], Progress Notes * Tiffanie KIRBY MDOB: [birth year] (58 yo F)Acc No.[id number]:12/16/2023 Progress Notes Patient: Tiffanie Barney Provider: Cristian Chavez MD :1965 A ge:58 Y S ex:Female Date:12/16/2023 Address:[address] [place], [place] [phone] Subjective: * Chief Complaints: * A nnual visitNo Covid symptoms * HPI: D epression Screening: PHQ-9 L ittle interest or pleasure in doing things N ot at all, F eeling down, depressed, or hopeless N ot at all, T rouble falling or staying asleep, or sleeping too much N ot at all, F eeling tired or having little energy N ot at all, P oor appetite or overeating N ot at all, F eeling bad about yourself or that you are a failure, or have let yourself or your family down N ot at all, T rouble concentrating on things, such as reading the newspaper or watching television N ot at all, M oving or speaking so slowly that other people could have noticed; or the opposite, being so fidgety or restless that you have been moving around a lot more than usual N ot at all, T houghts that you would be better off or of hurting yourself in some way N ot at all, T otal Score 0 . I nterpretation and Intervention D epression Screening Findings N egative, F ollow-Up for Depression : review of PHQ-9 found negative result, no follow-up needed. patient is a 58 yo female here for annual visit with review of recent labs and follow up of chronic issues. C ommunication Needs: Communication Needs D oes the patient have a hearing impairment N o, D oes the patient have a vision impairment? Y es, I f yes, what is the vision impairment? G lasses, D oes the patient have a cognition impairment? N o. S BINDU Questions: SDOH Questions I n the past year have you been worried about losing housing? N o, I n the past year have you or any family members you live with been unable to get any of the following when it was really needed? Check all that apply: N one. * ROS: G eneral/Constitutional: Patient denies f atigue , headache. C hange in appetite?denies. C hills d enies. F ever d enies. O phthalmologic: Blurred vision d enies. D ischarge d enies. P ain d enies. E NT: Patient denies d ecreased sense of smell , any loss of taste , sore throat. D ecreased hearing d enies. S ore throat d enies. S wollen glands d enies. E ndocrine: Cold intolerance d enies. E xcessive thirst d enies. H eat intolerance d enies. W eight loss d enies. R espiratory: Cough d enies. S hortness of breath at rest d enies. S hortness of breath with exertion d enies. W heezing d enies. C ardiovascular: Chest pain at rest d enies. C hest pain with exertion?denies. I rregular heartbeat d enies. S hortness of breath d enies. ? G astrointestinal: Abdominal pain d enies. C hange in bowel habits d enies. D iarrhea d enies. N ausea d enies. R ectal bleeding d enies. V omiting d enies . G enitourinary: Blood in urine d enies. D ifficulty urinating d enies. F requent urination d enies. U rinary incontinence D enies. M usculoskeletal: Patient denies m uscle aches. P ainful joints d enies. W eakness d enies. P eripheral Vascular: Patient denies r ed and blue toes. S kin: Dry skin d enies. I tching d enies. D enies?Mole(s), changes in moles, new moles or any lesions of concern. D enies P hotosensitivity. R didi d enies. N eurologic: Dizziness d enies. F ainting d enies. H eadache?denies. * Medical History: * Surgical History: * Hospitalization/Major Diagno stic Procedure: * Family History: F ather: 79 yrs, diagnosed with COPD. M other: alive 79 yrs, family history unknown . Mother-Healthy, Denies mental health/substance abuse family history, No pertinent family medical history, No pertinent family medical history. * Social History: T obacco Use: T obacco Use/Smoking P athomero is a n onsmoker, A dditional Findings: Tobacco Non-User C urrent non-smoker, currently using no form of tobacco. D rugs/Alcohol: A lcohol Screen D id you have a drink containing alcohol in the past year? Y es, H ow often did you have a drink containing alcohol in the past year? M onthly or less (1 point), H ow many drinks did you have on a typical day when you were drinking in the past year? 1 or 2 drinks (0 point), H ow often did you have 6 or more drinks on one occasion in the past year? N ever (0 point), P oints 1 , I nterpretation N egative. M iscellaneous: C affeine: none. no Children. Exercise: yes, 3-4 times per week strength yoga. Home smoke detector use: yes. Housing: owning. Living with: spouse. Marital status: . Occupation: works full-time [employer]. Pets: cat x1. no Travel outside of the [place]. * Medications: T akingNP Thyroid 90 MG Tablet 1 tablet on an empty stomach Orally Once a dayVitamin D 50 MCG (1999 [place]) Tablet 1 tablet Orally Once a cqbA90-Puohjp 5000 Tablet Chewable 1 tablet Orally once a dayTaking EQUINE DENTIST Thyroid 90 MG Tablet 1 tablet on an empty stomach Orally Once a dayTaking Vitamin D 50 MCG (1999 [place]) Tablet 1 tablet Orally Once a dayTaking D34-Odaguq 5000 Tablet Chewable 1 tablet Orally once a dayNot-Taking/PRNMagnesium 250 MG Tablet 1 tablet with a meal Orally Once a dayMedication List reviewed and reconciled with the patientNot-Taking/PRN Magnesium 250 MG Tablet 1 tablet with a meal Orally Once a dayMedication List reviewed and reconciled with the patient * Allergies: I buprofen: GI Upsetyes[Allergies Verified] Objective: * Vitals: H t: 66.5, Wt:149, BMI:23.69, BP:112/64 weight is down 3 pounds since 12-11-22. * P ast Orders: L ab:Microalbumin, Random (Order Date - 12/09/2023) (Collection Date - 12/09/2023) Value Reference Range Creatinine Urine 203.34 - mg/dL Microalbumin Urine 17.0 - mg/L Microalbum Creatinine Ratio Ur 8.3 <30 - ug/ mg cr L ab:Hemoglobin A1c (Order Date - 12/09/2023) (Collection Date - 12/09/2023) Value Reference Range Hemoglobin A1c % 5.4 <6.0 - % Estimated Average Glucose 108 - mg/dL L ab:Complete Blood Count Auto Diff (Order Date - 12/09/2023) (Collection Date - 12/09/2023) Value Reference Range White Blood Count 3.9 L 4.8-10.8 - X10*3/uL Red Blood Count 3.83 L 4.20-5.50 - X10*6/uL Hemoglobin 12.4 12.0-16.0 - g/dl Hematocrit 37.1 37.0-47.0 - % Mean Corpuscular Volume 96.9 80.0-98.0 - fL Mean Corpuscular Hemoglobin 32.4 27.0-33.0 - pg Mean Corpuscular HGB Conc 33.4 31.0-35.0 - g/ dl Red Cell Distribution Width 13.2 11.0-16.0 - % Platelet Count 290 160-400 - X10*3/uL Mean Platelet Volume 9.7 9.4-12.3 - fL Neutrophils Percent Auto 52.6 45-73 - % Imm Gran Pct Auto 0.0 0.0-0.4 - % Lymphocytes Percent Auto 35.0 20-40 - % Monocytes Percent Auto 10.9 2-11 - % Eosinophils Percent Auto 1.0 0-4 - % Basophils Percent Auto 0.5 0-2 - % NRBC Pct Auto 0.0 0.0-0.2 - /100WBC Neutrophils Absolute Auto 2.1 2.0-8.3 - x10* 3/uL Imm Gran Abs Auto 0.00 0.00-0.03 - X10*3/uL Lymphocytes Absolute Auto 1.4 1.2-4.9 - X10* 3/uL Monocytes Absolute Auto 0.4 0.1-1.2 - X10*3/ uL Eosinophils Absolute Auto 0.0 0.0-0.4 - X10* 3/uL Basophils Absolute Auto 0.0 0.0-0.2 - X10*3/ uL NRBC Abs Auto 0.000 0.0-0.012 - X10*3/uL L ab:Lipid Panel (Order Date - 12/09/2023) (Collection Date - 12/09/2023) Value Reference Range Triglycerides 44 <150 - mg/dL Cholesterol 199 <200 - mg/dL LDL Cholesterol Calculated 111 H <100 - mg/dL HDL Cholesterol 80 >40 - mg/dL * Examination: G eneral Examination: GENERAL APPEARANCE: w ell developed, well nourished, in no acute distress. HEAD: n ormocephalic, atraumatic. EYES: p upils equal, round, reactive to light and accommodation, sclera non-icteric. EARS: n ormal. ORAL CAVITY: m ucosa moist. THROAT: c lear. NECK/THYROID: n melissa supple, full range of motion, no cervical lymphadenopathy, no bruits. SKIN: w arm and dry, lesion on upper chest with an erythemouts area that is suspicious. HEART: r egular rate and rhythm, S1, S2 normal, no murmurs.? LUNGS: c lear to auscultation bilaterally. BREASTS: N o mass, no lump abnormal chronically inverted nipples no masses palpable. ABDOMEN: s oft, nontender, nondistended, bowel sounds present, normal, no organomegaly , no masses palpable. RECTAL EXAM: d eclined. FEMALE GENITOURINARY: d one by frame bender. EXTREMITIES: n o clubbing, cyanosis, or edema. NEUROLOGIC: n onfocal, motor strength normal upper and lower extremities, sensory exam intact. Assessment: * Assessment: 1. A nnual physical exam - Z00.00 (Primary) 2 . E ncounter for screening for malignant neoplasm of colon - Z12.11 3 . E ncounter for screening for malignant neoplasm of rectum - Z12.12 4 . A bnormal mammogram - R92.8 5 . S uperficial skin lesion - L98.9 6 . Prediabetes - R73.03 7 . V itamin B12 deficiency - E53.8 8 . A nemia, unspecified type - D64.9 9 . D epression screening - Z13.31 Plan: * Treatment: 2. E ncounter for screening for malignant neoplasm of colon L AB: COLOGUARD Notes: ORDER FAXED TO [facility]. 3. E ncounter for screening for malignant neoplasm of rectum L AB: COLOGUARD Notes: order faxed to [facility]. 4. A bnormal mammogram Notes: nothing palpable/ is going for futher evaluation. 5. S uperficial skin lesion Notes: refer to [facility] in [place]/ appears to be an early basal cell cancer/ REFERRAL TO BE [facility]ED TO [facility]. Referral To:[facility] Dermatology Reason:SUPERFICIAL SKIN LESION EARLY BASAL CELL 6. P rediabetes Notes: stable, no need for medication at this time. 7. V itamin B12 deficiency Continue Z48-Firtze Tablet Chewable, 5000, 1 tablet, Orally, once a day. Notes: doing well, will continue current egiment. 8. A nemia, unspecified type Notes: stable, will continue to monitor. 9. D epression screening Notes: negative screen. * Procedure Codes: * Follow Up: 1 Year * * Sign off status: Completed true * Provider: Cristian Chavez MD Date: 0 12/16/2023 Generated for Otto moffett/Shanon/eTransmitting on: 08/01/2024 09:24 AM EST History and Physical Notes * HPI (History of Present Illness) Category Sub-Category Detail Notes Category Not es Depression Screening PHQ-9 Little inte rest or pleasure in doing things: Not at all patient is a 58 yo female here for annual visit with review of recent labs and follow up of chronic issues. Feeling down, depressed, or hopeless: No t at all Trouble falling or staying asleep, or sl eeping too much: Not at all Feeling tired or having little energy: N ot at all Poor appetite or overeating: Not at all Feeling bad about yourself o r that you are a failure, or have let yourself or your family down: Not at all Trouble concentrating on thi ngs, such as reading the newspaper or watching television: Not at all Moving or speaking so slowly that other people could have noticed; or the opposite, being so fidgety or restless that you have been moving around a lot more than usual: Not at all Thoughts that you would be b harshil off or of hurting yourself in some way: Not at all Total Score: 0 Interpretation and Intervention Depression Sherine beltran Findings: Negative Follow-Up for Depression: : review of PH Q-9 found negative result, no follow-up needed SDOH Questions SDOH Questions In the past year have you been worried about losing housing?: No In the past year have you or any family members you live with been unable to get any of the following when it was really needed? Check all that apply:: None Communication Needs Communication Needs Does the patient have a hearing impairment: No Does the patient have a vision impairmen t?: Yes If yes, what is the vision impairment?: Glasses Does the patient have a cognition impair ment?: No Examination Category Sub-Category Detail Notes Category Not es General Examination GENERAL APPEARANCE: well dev eloped, well nourished, in no acute distress HEAD: normocephalic, atrau matic EYES: pupils equal, round, reactive to light and accommodation, sclera non-icteric EARS: normal THROAT: clear NECK/THYROID: neck supple, full ra nge of motion, no cervical lymphadenopathy, no bruits HEART: regular rate and rhy thm, S1, S2 normal, no murmurs LUNGS: clear to auscultatio n bilaterally ABDOMEN: soft, nontender, non distended, bowel sounds present, normal, no organomegaly , no masses palpable NEUROLOGIC: nonfocal, motor stre ngth normal upper and lower extremities, sensory exam intact SKIN: warm and dry, lesion on upper chest with an erythemouts area that is suspicious EXTREMITIES: no clubbing, cyanosi s, or edema BREASTS: No mass, no lump abn ormal chronically inverted nipples no masses palpable RECTAL EXAM: declined FEMALE GENITOURINARY: done by frame bender ORAL CAVITY: mucosa moist Consultation Request Notes Referral Date Referring Provider Referred Provider Not es 12/16/2023 Wilfred Chavez [facility]ology, [place] SUPERFICIAL SKIN LESION EARLY BASAL CELL
--- OUTSIDE RECORDS SUMMARY | 2024-01-08 11:20 | XMS_ITS ---
Author Organization [facility] Address [address] [place] [phone] Care Team Providers Care Roll Plugger Name Role Phone Scott DU, Wilfred Primary Care Provider Ricardo Wilson [phone] REASON FOR VISIT Patient presents today for a screening colonoscopy Encounters Encounter Location Date Provider Diagnosis [facility] [address] [place] [phone] 01/08/2024 Ricardo Hagen Plan Of Treatment No Information Progress Notes * GARTH PARRISHOB: 3 (60 yo F)Acc No.[id number]:01/08/2024 Progress Notes Patient: HARVINDER DOLL Provider: Mariama Hagen MD :1965 A ge:58 Y S ex:Female Date:01/08/2024 Address:[address] [place], [place] [phone] Pcp:Wilfred Chavez MD Subjective: * Chief Complaints: * 1 . Patient presents today for a screening colonoscopy. * Medical History: Objective: * Vitals: Assessment: Plan: * Treatment: * * The named appointment provid er may or may not be the originator of this progress note, and it is not deemed complete until electronically signed by the appointment provider. Sign off status: Pending * Provider: Mariama Hagen MD Date: 0 01/08/2024 Generated for Otto moffett/Shanon/eTransmitting on: 1 08/01/2024 09:23 AM EST
--- OUTSIDE RECORDS SUMMARY | 2024-01-13 03:39 | XMS_ITS ---
Author Organization Wilfred Chavez MD Address [address] [place] [phone] Care Team Providers Care Chief Radiology Name Role Phone Wilfred Chavez Primary Care Provider REASON FOR VISIT FYI cancelled GI appt Encounters Encounter Location Date Provider Diagnosis Wilfred Chavez MD [address] [place] [address] [place] [phone] 01/13/2024 Wilfred Chavez Plan Of Treatment Next Appt Details Provider Name:Wilfred duenas, 06/15/2025 02:00:00 PM, [address] [place] [address], [address], [phone], Provider Name:Wilfred duenas, 03/07/2026 07:00:00 AM, [address] [place] [address], [address], [phone], Provider Name:Wilfred duenas, 03/14/2026 09:30:00 AM, [address] [place] [address], [address], [phone], Progress Notes * Tiffanie KIRBY MDOB: [birth year] (58 yo F)Acc No.[id number]:01/13/2024 Patient: Tiffanie Barney :1965 A ge:58 Y S ex:Female Address:[address] [place] [phone] * true * Date: Generated for Otto moffett/Shanon/Geovanny on: 08/01/2024 09:22 AM EST
--- OUTSIDE RECORDS SUMMARY | 2024-02-24 04:29 | XMS_ITS ---
Author Organization Wilfred Chavez MD Address [address] [place] [phone] Care Team Providers Care Warning Analyst Name Role Phone Wilfred Chavez Primary Care Provider REASON FOR VISIT ER visit rec'd Encounters Encounter Location Date Provider Diagnosis Wilfred Chavez MD [address] [place] [address] [place] [phone] 02/24/2024 Wilfred Chavez Plan Of Treatment Next Appt Details Provider Name:Wilfred Collado ier, 06/15/2025 02:00:00 PM, [address] [place] [address], [address], [phone], Provider Name:Wilfred duenas, 03/07/2026 07:00:00 AM, [address] [place] [address], [phone], Provider Name:Wilfred Collado ier, 03/14/2026 09:30:00 AM, [address] [place] [address], [address], [phone], Progress Notes * Tiffanie KIRBY MDOB: [birth year] (58 yo F)Acc No.[id number]:02/24/2024 Patient: Tiffanie Barney :1965 A ge:58 Y S ex:Female Address:[address] [place] [phone] * true * Date: Generated for Otto moffett/Shanon/Geovanny on: 08/01/2024 09:22 AM EST
--- OUTSIDE RECORDS SUMMARY | 2024-02-28 04:15 | XMS_ITS ---
Author Organization Wilfred Chavez MD Address [address] [place] [phone] Care Team Providers Care Stave And Bolt Equalizer Name Role Phone Wilfred Chavez Primary Care Provider Allergies Allergen (clinical drug ingredient) Drug/Non Drug Allergy documented on EMR Reaction Allergy Type Onset Date Status ibuprofen Ibuprofen GI Upset Drug Allergy Active REASON FOR VISIT f/u er Medications Medication SIG (Take, Route, Frequency, Duration) Notes Start Date End Date Status PROPERTY DISPOSAL OFFICER Thyroid 90 MG 1 tablet on an empty stomach Orally Once a day for 30 day(s) Active O85-Uryhzr 5000 1 tablet Orally once a day [...] kg/m2 02/28/2024 weight is down 3 pounds [facility] e 12-16-23 Encounters Encounter Location Date Provider Diagnosis Wilfred Chavez MD [address] [place] [address] Drive [address] [place] [phone] 02/28/2024 Wilfred Chavez Gastroenteritis K52. 9 Assessments [...] Provider Name:Wilfred Collado ier, 06/15/2025 02:00:00 PM, [address] [place] [address], Suite [facility], [place], [place], [phone], Provider Name:Wilfred Collado ier, 03/07/2026 07:00:00 AM, [address] [place] [address], Suite [facility], [place], [place], [phone], Provider Name:Wilfred Collado ier, 03/14/2026 09:30:00 AM, [address] [place] [address], Suite [facility], [place], [place], [phone], Progress Notes * Tiffanie KIRBY MDOB: [birth year] (59 yo F)Acc No.[id number]:02/28/2024 Progress Notes Patient: Dada sanchezfloydChula rasmussenan Mack Provider: Cristian Chavez MD :1965 A ge:58 Y S ex:Female Date:02/28/2024 Address:[address] [place], [place] [phone] Subjective: * Chief Complaints: * F /u [...] (1999) Tablet 1 tablet Orally Once a vxuX58-Dtxwwg 5000 Tablet Chewable 1 tablet Orally once a dayTaking PROPERTY DISPOSAL OFFICER Thyroid 90 MG Tablet 1 tablet on an empty stomach Orally Once a dayTaking Vitamin D 50 MCG (1999) Tablet 1 tablet Orally Once a dayTaking N26-Mgooma 5000 Tablet Chewable 1 tablet Orally once [...] MD Date: 0 02/28/2024 Generated for Otto moffett/Shanon/Geovanny on: 1 08/01/2024 09:23 AM EST History and Physical Notes * [...]
--- OUTSIDE RECORDS SUMMARY | 2025-03-05 02:30 | XMS_ITS ---
Author Organization Wilfred Chavez MD Address [address] [place], [place] [phone] Care Team Providers Care Medical Lab Technician Name Role Phone Wilfred Chavez Primary Care Provider Results Component Value Reference Range Notes Complete Blood Count Auto Di ff Reviewed date:03/05/2025 04:53:50 PM Interpretation: Performing Lab:[facility], [address] [place] [phone] Notes/Report: White Blood Count 4.4 4.8-10.8 X10*3/uL Red Blood Count 3.72 4.20-5.50 X10*6/uL Hemoglobin 11.9 12.0-16.0 g/dl Hematocrit 36.6 37.0-47.0 % Mean Corpuscular Volume 98.4 80.0-98.0 fL Mean Corpuscular Hemoglobin 32.0 27.0-33.0 pg Mean Corpuscular HGB Conc 32.5 31.0-35.0 g/dl Red Cell Distribution Width 12.6 11.0-16.0 % Platelet Count 271 160-400 X10*3/uL Mean Platelet Volume 9.7 9.4-12.3 fL Neutrophils Percent Auto 54.7 45-73 % Imm Gran Pct Auto 0.2 0.0-0.4 % Lymphocytes Percent Auto 31.5 20-40 % Monocytes Percent Auto 11.7 2-11 % Eosinophils Percent Auto 1.4 0-4 % Basophils Percent Auto 0.5 0-2 % NRBC Pct Auto 0.0 0.0-0.2 /100WBC Neutrophils Absolute Auto 2.4 2.0-8.3 x10*3/u L Imm Gran Abs Auto 0.01 0.00-0.03 X10*3/uL Lymphocytes Absolute Auto 1.4 1.2-4.9 X10*3/u L Monocytes Absolute Auto 0.5 0.1-1.2 X10*3/uL Eosinophils Absolute Auto 0.1 0.0-0.4 X10*3/u L Basophils Absolute Auto 0.0 0.0-0.2 X10*3/uL NRBC Abs Auto 0.000 0.0-0.012 X10*3/uL Comprehensive [place]. Panel Fa st Reviewed date:03/05/2025 04:52:52 PM Interpretation: Performing Lab:[address] [phone] Notes/Report: Sodium 141 135-145 mmol/L Potassium 4.3 3.3-5.1 mmol/L Chloride 107 96-108 mmol/L Carbon Dioxide 28 22-29 mmol/L Anion Gap 10 12-20 Blood Urea Nitrogen 15 9-16 mg/dL Creatinine 0.76 0.5-1.4 mg/dL Estimated Glomerular Filt Rate > 60 Chronic Kidney Disease: Estimated GFR < 60 mL/min/1.73m2 Severe Kidney Disease: Estimated GFR < 15 mL/min/1.73m2 Glucose Fasting 94 60-99 mg/dL Calcium 9.0 8.4-10.2 mg/dL Bilirubin Total 0.5 0.0-1.0 mg/dL Aspartate Amino Transferase 23 5-31 U/L Alanine Aminotransferase 14 0-31 U/L Total Protein 6.8 6.5-8.0 g/dL Albumin Level 4.3 3.5-5.0 g/dL Alkaline Phosphatase 72 39-117 U/L Lipid Panel Reviewed date:03/05/2025 04:54:00 PM Interpretation: Performing Lab:[address] [phone] Notes/Report: Triglycerides 39 <150 mg/dL Desirable Triglyceride: less than 150 mg/dL Borderline High Triglyceride 150-199 mg/dL High Triglyceride: 200-499 mg/dL Very High Triglyceride: greater than or equal to 5OO mg/dL Cholesterol 198 <200 mg/dL Desirable Cholesterol: less than 200 mg/dL Borderline High Cholesterol: 200-239 mg/dL High Cholesterol: greater than 239 mg/dL LDL Cholesterol Calculated 112 <100 mg/dL Desirable LDL: less than 100 mg/dL Near Optimal/Above Optimal LDL: 110-129 mg/dL Borderline High LDL: 130-159 mg/dL High LDL: 160-189 mg/dL Very High LDL: greater than or equal to 190 mg/dL HDL Cholesterol 79 >40 mg/dL Desirable HDL: greater than 40 mg/dL Note: This HDL assay may give artificially low results in patients with liver disease. Vitamin B12 and Folate Reviewed date:03/05/2025 04:53:10 PM Interpretation: Performing Lab:[address] [phone] Notes/Report: Vitamin B12 > 2000 200-900 pg/mL NORMAL 200-900 PG/ML INDETERMINATE 160-199 PG/ML DEFICIENT < 160 PG/ML Folate 11.1 > or = 4.0 ng/mL Reference Values: > or = 4.0 ng/mL < 4.0 ng/mL suggests folate deficiency Methotrexate, aminopterin and folinic acid (leucovorin) are chemotherapeutic agents whose molecular structures are similar to folate; therefore, the Business Management Specialist folate assay cannot be used for patients using these drugs. Microalbumin, Random Reviewed date:03/05/2025 04:53:26 PM Interpretation: Performing Lab:[facility], [address] [place] [phone] Notes/Report: Creatinine Urine 136.87 Microalbumin Urine 22.0 Microalbum/Creatinine Ratio Ur 16.0 <30 ug/mg cr Albumin/Creatinine Ratio Reference Ranges: Normal: < 30 ug/mg creatinine Microalbuminuria: 30 - 300 ug/mg creatinine Clinical Albuminuria: > 300 ug/mg creatinine Hemoglobin A1c Reviewed date:03/05/2025 04:53:00 PM Interpretation: Performing Lab:[address] [phone] Notes/Report: Hemoglobin A1c % 5.5 <6.0 % Hemoglobin A1C Reference Range Adults: 4.8 - 6.0 % Non diabetic: < 6.0 % Goal: < 7.0 % Additional Action Suggested: > 8.0 % Note: Hemoglobin A1c results are invalid for patients with abnormal amounts of HbF. Blood transfusions may impact the HbA1c concentration in the patient sample. Estimated Average Glucose 111 eAG = Estimated average glucose which is %A1C expressed as average glucose, using the formula of the R2S-Ovvuqqr Average Glucose study (ADAG), Diabetes Care, Vol.31,#8, Feb. 2007 UA ClnCatch+Micro w/rflx Cul t Reviewed date:2025 04:57:40 PM Interpretation: Performing Lab:[facility], [address] [place] [phone] Notes/Report: [id number] Urine, Clean Catch Color Urine Yellow Appearance Urine Clear PH 7.5 5.0-9.0 Glucose Urine UA Negative Negative mg/dL Urine Blood Negative Negative Specific [place] - Urine 1.020 1.005-1.025 Urine Protein Negative Neg-Trace mg/dL Urine Ketones Negative Negative mg/dL Nitrite Urine Negative Negative Leukocyte Esterase Urine Moderate (2+) Negative RBC Urine 0-2 0-2 /HPF WBC Urine 6-10 0-5 /HPF Squamous Epithelial Cell Urine 3-5 0-2 /HPF Bacteria Urine None Seen None Seen Hyaline Casts Urine 0-2 0-2 /LPF REASON FOR VISIT FASTING LABS Encounters Encounter Location Date Provider Diagnosis Wilfred Chavez MD [address] [place] [address] Drive [address] [place], [place] [phone] 03/05/2025 Wilfred Chavez Blood tests for routine general physical examination Z00.00 ; Vitamin B12 deficiency E53.8 ; Prediabetes R73.03 and Anemia, unspecified type D64.9 Assessments Encounter Date Diagnosis (ICD Code) Assessment Notes Treatment Notes Treatment Clinical Notes Section Notes 03/05/2025 Blood tests for routine general physical examination (ICD-10 - Z00.00) 03/05/2025 Vitamin B12 deficiency (ICD-10 - E53.8) 03/05/2025 Prediabetes (ICD-10 - R73.03) 03/05/2025 Anemia, unspecified type (ICD-10 - D64.9) Plan Of Treatment Next Appt Details Provider Name:Wilfred duenas, 06/15/2025 02:00:00 PM, [address] [place] [address], [address], [place], [place], [phone], Provider Name:Wilfred duenas, 03/07/2026 07:00:00 AM, [address], [address], [place], [place], [phone], Provider Name:Wilfred Collado ier, 03/14/2026 09:30:00 AM, [address], [address], [place], [phone], Progress Notes * Tiffanie KIRBY MDOB: [birth year] (60 yo F)Acc No.[id number]:03/05/2025 Progress Note Patient: Tiffanie DOLL Provider: Cristian Chavez MD :1965 A ge:59 Y S ex:Female Date:03/05/2025 Address:[address] [place], [place] [phone] Subjective: * Chief Complaints: * 1 . FASTING LABS. * Medical History: Objective: * Vitals: Assessment: * Assessment: 1. B lood tests for routine general physical examination - Z00.00 (Primary) 2 .?Vitamin B12 deficiency - E53.8 3 . P rediabetes - R73.03 4 . A nemia, unspecified type - D64.9 Plan: * Treatment: 2. V itamin B12 deficiency L AB: Complete Blood Count Auto Diff (Collection Date & Time - 03/05/2025 07:30 AM) L AB: Comprehensive [place]. Panel Fast (Collection Date & Time - 03/05/2025 07:30 AM) L AB: Lipid Panel (Collection Date & Time - 03/05/2025 07:30 AM) L AB: Vitamin B12 and Folate (Collection Date & Time - 03/05/2025 07:30 AM) L AB: Microalbumin, Random (Collection Date & Time - 03/05/2025 07:30 AM) L AB: Hemoglobin A1c (Collection Date & Time - 03/05/2025 07:30 AM) L AB: UA ClnCatch+Micro w/rflx Cult (Collection Date & Time - 03/05/2025 07:30 AM) 3. P rediabetes L AB: Complete Blood Count Auto Diff (Collection Date & Time - 03/05/2025 07:30 AM) L AB: Comprehensive [place]. Panel Fast (Collection Date & Time - 03/05/2025 07:30 AM) L AB: Lipid Panel (Collection Date & Time - 03/05/2025 07:30 AM) L AB: Vitamin B12 and Folate (Collection Date & Time - 03/05/2025 07:30 AM) L AB: Microalbumin, Random (Collection Date & Time - 03/05/2025 07:30 AM) L AB: Hemoglobin A1c (Collection Date & Time - 03/05/2025 07:30 AM) L AB: UA ClnCatch+Micro w/rflx Cult (Collection Date & Time - 03/05/2025 07:30 AM) 4. A nemia, unspecified type L AB: Complete Blood Count Auto Diff (Collection Date & Time - 03/05/2025 07:30 AM) L AB: Comprehensive [place]. Panel Fast (Collection Date & Time - 03/05/2025 07:30 AM) L AB: Lipid Panel (Collection Date & Time - 03/05/2025 07:30 AM) L AB: Vitamin B12 and Folate (Collection Date & Time - 03/05/2025 07:30 AM) L AB: Microalbumin, Random (Collection Date & Time - 03/05/2025 07:30 AM) L AB: Hemoglobin A1c (Collection Date & Time - 03/05/2025 07:30 AM) L AB: UA ClnCatch+Micro w/rflx Cult (Collection Date & Time - 03/05/2025 07:30 AM) * Procedure Codes: 3 6415 VENIPUNCT, ROUTINE* * * The named appointment provid er may or may not be the originator of this progress note, and it is not deemed complete until electronically signed by the appointment provider. Sign off status: Pending * Provider: Cristian Chavez MD Date: 0 03/05/2025 Generated for Otto moffett/Shanon/Geovanny on: 1 08/01/2024 09:25 AM EST
--- OUTSIDE RECORDS SUMMARY | 2025-03-11 03:00 | XMS_ITS ---
Author Organization Wilfred Chavez MD Address [address] [place], [place] [phone] Care Team Providers Care Mitten Sewer Name Role Phone Wilfred Chavez Primary Care Provider Allergies Allergen (clinical drug ingredient) Drug/Non Drug Allergy documented on EMR Reaction Allergy Type Onset Date Status ibuprofen Ibuprofen GI Upset Drug Allergy Active Results Component Value Reference Range Notes TSH reflex Free T4 Reviewed date:03/11/2025 12:29:23 PM Interpretation: Performing Lab:[facility], [address] [place] [phone] Notes/Report: TSH reflex Free T4 0.47 0.32-4.0 uIU/mL REASON FOR VISIT ANNUAL EXAM Medications Medication SIG (Take, Route, Frequency, Duration) Notes Start Date End Date Status JACQUARD CARD LACER Thyroid 90 MG 1 tablet on an empty stomach Orally Once a day for 30 day(s) Active E41-Icbdug 5000 1 tablet Orally once a day [...] Status W/U Status Risk Notes Problem Hypothyroid (26167704) Hypothyroid (E03.9) Active confirmed Vital Signs Blood pressure systolic 102 mm Hg 03/11/20 25 Blood pressure diastolic 60 mm Hg 025 Height 66.5 in 03/11/2025 Weight 152 lbs 03/11/2025 BMI 24.16 kg/m2 03/11/2025 weight is up 6 pounds since 02-28-24 Encounters Encounter Location Date Provider Diagnosis Wilfred Chavez MD [address] [place] [phone] 03/11/2025 Wilfred Chavez Annual physical exam Z00.00 [...] pending diagnostic testing, [place] order faxed to [facility] dept 03/11/2025 Prediabetes (ICD-10 - R73.03) [...] diagnostic t esting, US order faxed to [facility] dept Prediabetes stable, n need for m edication at this time Vitamin B12 deficiency Stable, will cont inue current regiment Depression screening negative screen Pending Test Test Name Order Date US ABD 03/11/2025 Next Appt Details Follow Up: 4 Weeks, Reason: Provider Name:Wilfred Collado ier, 06/15/2025 02:00:00 PM, [address], [address], [place], [phone], Provider Name:Wilfred Collado ier, 03/07/2026 07:00:00 AM, [address], [address], [place], [place], [phone], Provider Name:Wilfred Collado ier, 03/14/2026 09:30:00 AM, [address], [address], [place], [place], [phone], Progress Notes * Tiffanie KIRBY MDOB: [birth year] (60 yo F)Acc No.[id number]:03/11/2025 Progress Notes Patient: Dada Tiffanie CARTER Provider: Cristian Chavez MD :1965 A ge:60 Y S ex:Female Date:03/11/2025 Address:[address] [place], [place] [phone] Subjective: * Chief Complaints: * A NNUAL [...] spouse. Marital status: . Occupation: works full-time [employer]. Pets: cat x1. * Medications: T akingNP Thyroid 90 MG Tablet 1 tablet on an empty stomach Orally Once a day F78-Wiejif 5000 Tablet Chewable 1 tablet Orally once a day Taking JACQUARD CARD LACER Thyroid 90 MG Tablet 1 tablet on an empty stomach Orally Once a day Taking X54-Xnxblw 5000 Tablet Chewable 1 tablet Orally once a day Not-Taking/PRNVitamin D 50 MCG (1999) Tablet 1 tablet [...] mg/dL Urine Blood Negative Negative - Specific [place] - Urine 1.020 1.005-1.025 - Urine Protein [...] Urine 0-2 0-2 - /LPF L ab:Comprehensive [place]. Panel Fast (Order Date - 03/05/2025) (Collection [...] masses palpable. RECTAL EXAM: d one by health care liaison. FEMALE GENITOURINARY: d one by health care liaison. EXTREMITIES: n o clubbing, cyanosis, or edema. [...] pending diagnostic testing, US order faxed to [facility] dept 4. P rediabetes Notes: stable, n need for medication at this time 5. V itamin B12 deficiency Notes: Stable, will continue current regiment 6. D epression screening Notes: negative screen * Procedure Codes: 3 6415 VENIPUNCT, ROUTINE* * Follow Up: 4 Weeks * * Sign off status: Completed true * Provider: Cristian Chavez MD Date: 0 03/11/2025 Generated for Otto moffett/Shanon/eTsofyasmitting on: 1 08/01/2024 09:22 AM EST History and Physical Notes * [...] Total Score: 0 Interpretation and Intervention Depression Melonyvalery ruby Findings: Negative Follow-Up for Depression: : review [...] mass, no lump RECTAL EXAM: done by health care liaison FEMALE GENITOURINARY: done by health care liaison ORAL CAVITY: mucosa moist
--- OUTSIDE RECORDS SUMMARY | 2025-03-16 04:37 | XMS_ITS ---
Author Organization Wilfred Chavez MD Address [address] [place] [phone] Care Team Providers Care Livestock Sales Representative Name Role Phone Wilfred Chavez Primary Care Provider REASON FOR VISIT sooner US appt ? Encounters Encounter Location Date Provider Diagnosis Wilfred Chavez MD [address] [place] [address] [place] [phone] 03/16/2025 Wilfred Chavez Plan Of Treatment Next Appt Details Provider Name:Wilfred Collado ier, 06/15/2025 02:00:00 PM, [address] [place] [address], [address], [phone], Provider Name:Wilfred Collado ier, 03/07/2026 07:00:00 AM, [address] [place] [address], [phone], Provider Name:Wilfred Collado ier, 03/14/2026 09:30:00 AM, [address] [place] [address], [address], [phone], Progress Notes * Tiffanie KIRBY MDOB: [birth year] (60 yo F)Acc No.[id number]:03/16/2025 Patient: Tiffanie DOLL :1965 A ge:60 Y S ex:Female Address:[address] [place] [phone] * true * Date: Generated for Otto moffett/Shanon/Geovanny on: 08/01/2024 09:24 AM EST
--- OUTSIDE RECORDS SUMMARY | 2025-04-19 04:00 | XMS_ITS ---
Author Organization Wilfred Chavez MD Address [address] [place] [phone] Care Team Providers Care Nuclear Power Reactor Operator Name Role Phone Wilfred Chavez Primary Care Provider Allergies Allergen (clinical drug ingredient) Drug/Non Drug Allergy documented on EMR Reaction Allergy Type Onset Date Status ibuprofen Ibuprofen GI Upset Drug Allergy Active REASON FOR VISIT 4 week Medications Medication SIG (Take, Route, Frequency, Duration) Notes Start Date End Date Status Vitamin D 50 MCG (1999) 1 tablet Orally Once a day for 30 day(s) Not-Taking Magnesium 250 MG 1 tablet with a meal Orally Once a day for 30 day(s) Not-Taking SENIOR JAVA DEVELOPER Thyroid 90 MG 1 tablet on an empty stomach Orally Once a day for 30 day(s) Active Z89-Wkyvng 5000 1 tablet Orally once a day Active Immunizations Vaccine Route Administration Date Status Comme nts Fluarix Quadrivalent - 150 Unknown 04/19/2025 Refused Problems Problem Type SNOMED Code ICD Code Onset Dates Problem Status W/U Status Risk Notes Problem Peptic ulcer (64969433) Peptic ulcer (K27.9) Active confirmed Vital Signs Blood pressure systolic 112 mm Hg 04/19/20 25 Blood pressure diastolic 60 mm Hg 025 Height 66.5 in 04/19/2025 Weight 156 lbs 04/19/2025 BMI 24.8 kg/m2 04/19/2025 weight is up 4 pounds since 03-11-25 Encounters Encounter Location Date Provider Diagnosis Wilfred Chavez MD [address] [place] [phone] 04/19/2025 Wilfred Chavez Peptic ulcer K27.9 and Abdominal bruit R09.89 Assessments Encounter Date Diagnosis (ICD Code) Assessment Notes Treatment Notes Treatment Clinical Notes Section Notes 04/19/2025 Peptic ulcer (ICD-10 - K27.9) if doesn't show anything then send back to dr wu, pending diagnostic study 04/19/2025 Abdominal bruit (ICD-10 - R09.89) had cat scan that showed no abnormalities Plan Of Treatment Treatment Notes Assessment Notes Peptic ulcer if doesn't show anyt terry then send back to dr wu, pending diagnostic study Abdominal bruit had cat scan that sh owed no abnormalities Pending Test Test Name Order Date XR GI SERIES 04/19/2025 Next Appt Details Follow Up: 4 Weeks, Reason: Provider Name:Wilfred duenas, 06/15/2025 02:00:00 PM, [address] [place] [address], [address], [phone], Provider Name:Wilfred duenas, 03/07/2026 07:00:00 AM, [address] [place] [address], [address], [phone], Provider Name:Wilfred duenas, 03/14/2026 09:30:00 AM, [address] [place] [address], [address], [phone], Progress Notes * Tiffanie KIRBY MDOB: [birth year] (60 yo F)Acc No.[id number]:04/19/2025 Progress Notes Patient: Tiffanie DOLL Provider: Cristian Chavez MD :1965 A ge:60 Y S ex:Female Date:04/19/2025 Address:[address] [place], [place] [phone] Subjective: * Chief Complaints: * 4 week * HPI: S ymptom(s): patient is a 60 yo female here for 4 week follow up visit/ STILL gets gnawing burning pain that goes into back at times. eating doesn't seem to have an effect. * ROS: G eneral/Constitutional: Denies C hills. D enies F atigue. D enies F ever. D enies H eadache. E NT: Denies S ore throat. R espiratory: Denies C ough. D enies S hortness of breath at rest. D enies S hortness of breath with exertion. G astrointestinal: Admits A bdominal pain. D enies C onstipation. D enies D iarrhea. A dmits N ausea. * Medical History: * Surgical History: * Hospitalization/Major Diagno stic Procedure: * Medications: T akingNP Thyroid 90 MG Tablet 1 tablet on an empty stomach Orally Once a day T77-Gpoizo 5000 Tablet Chewable 1 tablet Orally once a day Taking SENIOR JAVA DEVELOPER Thyroid 90 MG Tablet 1 tablet on an empty stomach Orally Once a day Taking B99-Qysqfz 5000 Tablet Chewable 1 tablet Orally once a day Not-Taking/PRNVitamin D 50 MCG (2000 UT) Tablet 1 tablet Orally Once a day Magnesium 250 MG Tablet 1 tablet with a meal Orally Once a day Medication List reviewed and reconciled with the patientNot-Taking/PRN Vitamin D 50 MCG (2000 UT) Tablet 1 tablet Orally Once a day Not-Taking/PRN Magnesium 250 MG Tablet 1 tablet with a meal Orally Once a day Medication List reviewed and reconciled with the patient * Allergies: I buprofen: GI Upsetyes[Allergies Verified] Objective: * Vitals: H t: 66.5, Wt: 156, BMI:24.8, BP:112/60, Wt-k.76. weight is up 4 pounds since 03-11-25. * Examination: G eneral Examination: GENERAL APPEARANCE: w ell developed, well nourished. HEAD: n ormocephalic. SKIN: g ood turgor. HEART: r egular rate and rhythm, no murmurs, rubs, gallops.? LUNGS: n o wheezes, rales, rhonchi, good air movement, clear to auscultation bilaterally. ABDOMEN: s oft, nontender, nondistended, no rebound tenderness, no organomegaly, abnormal with a bruits. Assessment: * Assessment: 1. P eptic ulcer - K27.9 (Primary) 2 . A bdominal bruit - R09.89 Plan: * Treatment: 2. A bdominal bruit Notes: had cat scan that showed no abnormalities * Immunizations: Fluarix Quadrivalent - 150 (Not administered - Refused: Patient decision) * Procedure Codes: * Preventive Medicine: Immunizations: I marvin espino you had a flu shot since the most recent March 29? N o patient refused at visit today. * Follow Up: 4 Weeks * * Sign off status: Completed true * Provider: Cristian Chavez MD Date: 0 04/19/2025 Generated for Otto moffett/Shanon/Galesmitting on: 08/01/2024 09:24 AM EST History and Physical Notes * HPI (History of Present Illness) Category Sub-Category Detail Notes Category Not es Symptom(s) patient is a 60 yo female here for 4 week follow up visit/ STILL gets gnawing burning pain that goes into back at times. eating doesn't seem to have an effect. Examination Category Sub-Category Detail Notes Category Not es General Examination GENERAL APPEARANCE: well developed , well nourished HEAD: normocephalic HEART: regular rate and rhy thm, no murmurs, rubs, gallops LUNGS: no wheezes, rales, r honchi, good air movement, clear to auscultation bilaterally ABDOMEN: soft, nontender, non distended, no rebound tenderness, no organomegaly, abnormal with a bruits SKIN: good turgor
--- OUTSIDE RECORDS SUMMARY | 2025-05-14 08:45 | XMS_ITS ---
Author Organization Wilfred Chavez MD Address [address] [place] [id number] Care Team Providers Care Oracle Erp Architect Name Role Phone Wilfred Chavez Primary Care Provider Allergies Allergen (clinical drug ingredient) Drug/Non Drug Allergy documented on EMR Reaction Allergy Type Onset Date Status ibuprofen Ibuprofen GI Upset Drug Allergy Active REASON FOR VISIT must see/ follow up appt after GI series Medications Medication SIG (Take, Route, Frequency, Duration) Notes Start Date End Date Status Vitamin D 50 MCG (1999) 1 tablet Orally Once a day for 30 day(s) Not-Taking N38-Mdkkkc 5000 1 tablet Orally once a day Active Magnesium 250 MG 1 tablet with a meal Orally Once a day for 30 day(s) Not-Taking Hyoscyamine Sulfate 0.125 MG 1 tablet as needed Orally twice a day for 30 days 05/14/2025 Active CLINICAL MICROBIOLOGIST Thyroid 90 MG 1 tablet on an empty stomach Orally Once a day for 30 day(s) Active Problems Problem Type SNOMED Code ICD Code Onset Dates Problem Status W/U Status Risk Notes Problem Irritable bowel (82619871) Irritable bowel (K58.9) Active confirmed Vital Signs Blood pressure systolic 140 mm Hg 05/14/20 25 Blood pressure diastolic 74 mm Hg 025 Height 66.5 in 05/14/2025 Weight 155 lbs 05/14/2025 BMI 24.64 kg/m2 05/14/2025 Encounters Encounter Location Date Provider Diagnosis Wilfred Chavez MD [address] [place] [phone] 05/14/2025 Wilfred Bombardier Irritable bowel K58.9 Assessments Encounter Date Diagnosis (ICD Code) Assessment Notes Treatment Notes Treatment Clinical Notes Section Notes 05/14/2025 Irritable bowel (ICD-10 - K58.9) patient verbalized understanding of medication and directions for use Plan Of Treatment Medication Medication Name Sig Start Date Stop Date Notes Hyoscyamine Sulfate 0.125 MG 1 tablet as needed Orally twice a day for 30 days 05/14/2025 Treatment Notes Assessment Notes Irritable bowel patient verbalized u nderstanding of medication and directions for use Next Appt Details Follow Up: 4 Weeks, Reason: Provider Name:Wilfred duenas, 06/15/2025 02:00:00 PM, [address] [place] [address], [address], [phone], Provider Name:Wilfred Jocelyn Heaven duenas, 03/07/2026 07:00:00 AM, [address] [place] [address], [address], [phone], Provider Name:Wilfred duenas, 03/14/2026 09:30:00 AM, [address] [place] [address], [address] [place] [address], [phone], Progress Notes * Tiffanie KIRBY MDOB: [birth year] (60 yo F)Acc No.[id number]:05/14/2025 Patient: Dada Tiffanie CARTER Provider: Cristian Chavez MD :1965 A ge:60 Y S ex:Female Date:05/14/2025 Address:[address] [place], [place] [phone] Subjective: * Chief Complaints: * m ust see/ follow up appt after GI series * HPI: S ymptom(s): patient is a 60 yo female here for follow up from recent GI series/ pain in upper left abdomen. goes through to back. feels bloated and light headed and sometimes itchy and sometimes into other areas of abdomen. at some point felt hungry. bowels fine. not losing any weight. has gained a little weight. * ROS: G eneral/Constitutional: Denies C hills. [...] D enies C onstipation. D enies D ecreased appetite. D enies D iarrhea. A dmits N ausea. * Medical History: * Surgical History: * Hospitalization/Major Diagno stic Procedure: * Medications: T akingNP Thyroid 90 MG Tablet 1 tablet on an empty stomach Orally Once a day T82-Ukkpml 5000 Tablet Chewable 1 tablet Orally once a day Taking CLINICAL MICROBIOLOGIST Thyroid 90 MG Tablet 1 tablet on an empty stomach Orally Once a day Taking L29-Homsus 5000 Tablet Chewable 1 tablet Orally once [...] Objective: * Vitals: H t: 66.5, Wt: 155, BMI:24.64, BP:140/74, Repeat BP:115/65, Wt-k.31. * Examination: G eneral Examination: GENERAL APPEARANCE: a lert, well hydrated, in no distress.? HEAD: n ormocephalic. SKIN: g ood turgor. HEART: r egular rate and rhythm. LUNGS: n o wheezes, rales, rhonchi, good air movement, clear to auscultation bilaterally. ABDOMEN: s oft, nontender, nondistended, no rebound tenderness, no organomegaly. Assessment: * Assessment: 1. I rritable bowel - K58.9 (Primary) Plan: * Treatment: * Procedure Codes: * Follow Up: 4 Weeks * * Sign off status: Completed true * Provider: Cristian Chavez MD Date: Generated for Otto moffett/Shanon/Jaisonitting on: 08/01/2024 09:23 AM EST History and Physical Notes * HPI (History of Present Illness) Category Sub-Category Detail Notes Category Not es Symptom(s) patient is a 60 yo female here for follow up from recent GI series/ pain in upper left abdomen. goes through to back. feels bloated and light headed and sometimes itchy and sometimes into other areas of abdomen. at some point felt hungry. bowels fine. not losing any weight. has gained a little weight Examination Category Sub-Category Detail Notes Category Not es General Examination GENERAL APPEARANCE: alert, w ell hydrated, in no distress HEAD: normocephalic HEART: regular rate and rhy thm LUNGS: no wheezes, rales, r honchi, good air movement, clear to auscultation bilaterally ABDOMEN: soft, nontender, non distended, no rebound tenderness, no organomegaly SKIN: good turgor
--- OUTSIDE RECORDS SUMMARY | 2025-05-27 09:30 | XMS_ITS ---
Author Organization [facility] Address [address] [place] [address] Care Team Providers Care Sander Hand Name Role Phone Wilfred Chavez MD Primary Care Provider Ricardo Wilson [phone] REASON FOR VISIT LUQ pain Encounters Encounter Location Date Provider Diagnosis [facility] [place] Outpatient [address] [place] [phone] 05/27/2025 Ricardo Hagen Plan Of Treatment No Information Progress Notes * GARTH PARRISHOB: 3 (60 yo F)Acc No.[id number]:05/27/2025 EGD/MAC Patient: HARVINDER DOLL Provider: Mariama Hagen MD :1965 A ge:60 Y S ex:Female Date:05/27/2025 Address:[address] [place], [place] [phone] Pcp:Wilfred Chavez MD Subjective: * Chief Complaints: * 1 . LUQ pain. * Medical History: Objective: * Vitals: Assessment: Plan: * Treatment: * * The named appointment provid er may or may not be the originator of this progress note, and it is not deemed complete until electronically signed by the appointment provider. Sign off status: Pending * Provider: Mariama Hagen MD Date: Generated for Printi ng/Faxing/eTransmitting on: 08/01/2024 09:22 AM EST
--- NOTE | ~2025-06-01 | MM_ITS ---
EXAMINATION: DXA BONE DENSITY AXIAL HISTORY: M85.89 TECHNIQUE: LegUP Dual energy absorptiometry (DEXA) of the lumbar spine, total left hip, and femoral neck was performed. COMPARISON: Comparison is made with the prior examination dated 12/27/2022. FINDINGS: The bone mineral density of the lumbar spine is 1.221 g/cm2, corresponding to a T-score of 0.3, and a Z-score of 1.6. This is indicative of normal bone mineral density. This represents a BMD change of -1.1% compared to the prior exam. This is not statistically significant. The bone mineral density of the left total hip is 0.950 g/cm2, corresponding to a T-score of -0.5, and a Z-score of 0.5. This is indicative of normal bone mineral density. This represents a BMD change of -1.9% compared to the prior exam. This is not statistically significant. The bone mineral density of the left femoral neck is 0.855 g/cm2, corresponding to a T-score of -1.3, and a Z-score of 0.0. This is indicative of osteopenia. This represents a BMD change of 5.3% compared to the prior exam. FRACTURE RISK: The FRAX index suggests a ten year probability of major osteoporotic fracture of 7.9%, and of hip fracture 0.6%. MM/XR DEXA axial skeleton IMPRESSION: Based on bone mineral density, and according to World Health Organization (WHO) criteria, the diagnosis is consistent with osteopenia. Statistically, 68% of repeat scans fall within 1 SD (+/- 0.010 g/cm2 for AP spine L1-L4) and 1 SD (+/- 0.012 g/cm2 for femur total) FRAX is a trademark of the [employer] Met[employer], a World Health Organization (WHO) Collaborating Center. Electronically signed by: Ricardo Fang MD 06/01/2025 09:42 AM [facility]
--- OUTSIDE RECORDS SUMMARY | 2025-06-01 09:22 | XMS_ITS | Patient Health Record ---
Author Organization [facility] Address [address] [place] [address] Care Team Providers Care Biology Lecturer Name Role Phone Wilfred Chavez MD Primary Care Provider Ricardo Wilson Unavailable [phone] Allergies No Known Allergies Reason For Referral No Information Medications Medication SIG (Take, Route, Fr equency, Duration) Notes Start Date End Date Status [place] Thyroid 90 MG 1 tablet on an [...] W/U Status Risk Notes Problem Epigastric pain (65080156) Abdominal pain, epigastric (789.06) Active confirmed Problem Colon cancer screening (501343771) Colon cancer screening (V76.51) Active confirmed Problem Colon cancer screening (316643596) Colon cancer screening (Z12.11) Active confirmed Problem Anemia (450395964) Anemia (D64.9) Active confirmed Problem Left upper quadrant pain (048066339) LUQ abdominal pain (R10.12) Active confirmed Vital Signs Temperature 91 degrees Fahrenheit 05/04/2025 Blood pressure diastolic 01 mm Hg 05/04/2025 Height 67.5 in 05/04/2025 Blood pressure systolic 001 mm Hg 05/04/2025 Weight 151.8 lbs 05/04/2025 BMI 23.42 kg/m2 05/04/2025 Procedures Procedure Date Ordered Date Performed Result Body Sit e UPPER GI ENDOSCOPY 05/04/2025 N/A Encounters Encounter Location Date Provider Diagnosis [facility] [place] [address] [place], [place] [phone] 05/27/2025 Ricardo Hagen [facility] [address] [place] [address] 05/04/2025 Ricardo Hagen LUQ abdominal pain R10.12 [...] was diagnosed by a physician at the [facility] but was not given an etiology [...] was diagnosed by a physician at the [facility] but was not given an etiology of [...] was diagnosed by a physician at the [facility] but was not given an etiology [...] Insured Coverage Start Date Coverage End Date [facility] [address] [facility] [place] [phone] [id number] HARVINDER PARRISH Self - patient is the insured 4 Medical (General) History Medical History History ICD Code EGD in 08/2010- gastritis wit h H.pylori-Rx'd with 10 days of Omeprazole, Biaxin, and Amoxicillen- gave her good relief at the time Denies [place],DM,CVA,Lung disease,renal dise ase U/S in 06/2010 with gallbladder polyps -no stones Neg. Cologuard 2024 Negative screening colonoscopy in 2012 EGD 2012 minimal HH, WNL, bx neg H.pylor i Hypothyroidism
--- OUTSIDE RECORDS SUMMARY | 2025-06-01 09:22 | XMS_ITS | Encounter Summary ---
Author Organization [facility] Address [address] [place] [address] Phone Care Team Providers Care Food And Nutrition Supervisor Name Role Phone Wilfred Chavez MD Primary Care Provider Encounter Details Date Type Department Care Team (Late st Contact Info) Description 10/22/2017 Ancillary Orders Virtual Department [address] [place] [address] Wilfred Chavez MD [address] [place] [address] [place] [address] Breast screening Social History Tobacco Use Types [...] st Contact Info) Description 10/08/2024 Procedure Pass [address] [address] 06/04/2025 4:00 PM EST Appointment [address] [address] Wilfred Chavez MD [address] [place] [address] [place] [address] documented as of this encounter Results * [...] and compared with multiple prior studies, most eavdheah69/16/2017, with utilization of computer-aided detection. The breast [...] documented as of this encounter Care Teams Food And Nutrition Supervisor Relationship Specialty Start Date End Date Wilfred Chavez MD [address] [place] [address] Dr Zhang, [place] [address] PCP - General 08/01/17 documented as of this encounter Additional Source Comments The information contained in this document represents components of the legal health record. It is not the complete legal health record.[facility]
--- OUTSIDE RECORDS SUMMARY | 2025-06-01 09:22 | XMS_ITS | Clinical Summary ---
Author Organization [facility] Address [address] [place] [phone] Phone Care Team Providers Care Refinery Operator Visbreaking Name Role Phone Wilfred Chavez MD Primary Care Provider Allergies Active Allergy Reactions Criticality Noted Date Comments Ibuprofen 07/26/2016 Other reaction(s): gastric issues Medications magnesium sulfate 100 mg Cap 1 capsule with food Orally Four times a day Active cyanocobalamin, vitamin B-12, 5,000 mcg Subl 1 tablet under the tongue and allow to dissolve Sublingual Once a day Active PRESS TOOL MAKER THYROID 15 mg Tab TAKE 1 TABLET BY MOUTH EVERY DAY WITH 60MG TABLET 4 8 Active PRESS TOOL MAKER THYROID 60 mg Tab TAKE 1 TABLET [...] - 04/09/2025 11:59 PM EDT Hospital Encounter [facility] [address] [address] Pierce Barton MD Discharge Disposition: Home or Self Care 04/09/2025 Transcribe Orders [facility] [address] [address] Pierce Barton MD Other specified hypothyroidism (Primary [...] st Contact Info) Description 10/08/2024 Procedure Pass [facility], [address] [address] 06/04/2025 4:00 PM EST Appointment [address] [address] Wilfred Chavez MD [address] [place] [address] [place] [address] Health Maintenance Due Date Last Done Comments [...] 2025 07/31/2021, 11/03/2020, 11/03/2020 MAMMOGRAM 11/28/2025 11/29/2023, 0411/2022, 05/23/2021, Additional history exists RSV VACCINE (1 [...] of bone density and structure, multiple sites THYROID STIMULATING HORMONE (TSH) Routine 04/09/2025 9:00 AM EDT Other specified hypothyroidism 25-OH VITAMIN D Routine 04/09/2025 9:00 AM EDT Other specified hypothyroidism Other specified disorders of bone density and structure, multiple sites BI MAMMOGRAM SCREENING WITH TOMOSYNTHESIS WITH CAD (BILATERAL) Routine 11/29/2023 8:59 AM EDT Breast screening from Last 3 Months or Most Recently Relevant to Health Maintenance Results * RBC magnesium (04/09/2025 9:00 AM EDT) RBC Magnesium 5.3 4.0 - 6.4 mg/dL [facility] Comment: (NOTE) This test was developed and its analytical performance characteristics have been determined by [facility] [place], [place]. It has not been cleared or approved by the U.S. Food and Drug Administration. This assay has been validated pursuant to the CLIA regulations and is used for clinical purposes. Blood 04/09/2025 9:00 AM EDT 04/09/2025 9:06 AM EDT us Pierce Barton MD LAB BLOOD ORDERABLES Final Res ult [employer] [address] [place], [place] * Testosterone, total and free (04/09/2025 9:00 AM EDT) FREE TESTOSTERONE 0.35 <0.13 - 0.87 ng/dL [facility] Comment: (NOTE) ADDITIONAL INFORMATION This test was developed and its performance characteristics determined by [facility] in a manner consistent with CLIA requirements. This test has not been cleared or approved by the U.S. Food and Drug Administration. TESTOSTERONE, TOTAL 20 8 - 60 ng/dL [facility] Comment: (NOTE) ADDITIONAL INFORMATION Testing performed by Liquid Chromatography-Tandem Mass Spectrometry (LC-MS/MS). This test was developed and its performance characteristics determined by [facility] in a manner consistent with CLIA requirements. This test has not been cleared or approved by the U.S. Food and Drug Administration. Blood 04/09/2025 9:00 AM EDT 04/09/2025 9:06 AM EDT us Pierce Barton MD LAB BLOOD BKR ORDERABLES Final Result Performing Organization Address City/[facility]/ZIP Co de Phone Number [facility]/PATH [address] [place] [address] * DHEA-SULFATE (04/09/2025 9:00 AM EDT) DHEAS 115 9.7 - 159 mcg/dL [facility] Blood 04/09/2025 9:00 AM EDT 04/09/2025 9:06 AM EDT us Pierce Barton MD LAB BLOOD ORDERABLES Final Res ult Performing Organization Address [facility] de Phone Number [facility]/PATH [address] [address] * Progesterone (04/09/2025 9:00 AM EDT) PROGESTERONE 0.22 ng/mL [facility] Comment: FEMALE: Follicular: 0.057 - 0.893 ng/ml Luteal: 1.83 - 23.9 ng/ml Blood 04/09/2025 9:00 AM EDT 04/09/2025 9:06 AM EDT Pierce Barton MD LAB BLOOD BKR ORDERABLES Final Result Performing Organization Address City/[facility] Co de Phone Number [address] [address] * (ABNORMAL) 25-OH vitamin D (04/09/2025 9:00 AM EDT) 25 OH VIT D (TOTAL) 26(L) 30 - 60 ng/mL [facility] Blood 04/09/2025 9:00 AM EDT 04/09/2025 9:06 AM EDT us Pierce Barton MD LAB BLOOD BKR ORDERABLES Final Result Performing Organization Address [facility] Co de Phone Number [address] [address] * Estradiol (04/09/2025 9:00 AM EDT) ESTRADIOL 8 pg/mL [facility] Comment: FEMALE: Follicular: Less than 12 to 233 pg/ml Midcycle: 41 - 398 pg/ml Luteal: 22 - 341 pg/ml Postmenopausal: less than 5 - 138 pg/ml Blood 04/09/2025 9:00 AM EDT 04/09/2025 9:06 AM EDT us Pierce Barton MD LAB BLOOD BKR ORDERABLES Final Result Performing Organization Address [facility] de Phone Number [address] [address] * Free T3 (04/09/2025 9:00 AM EDT) FREE T3 2.5 2.0 - 4.4 pg/mL [facility] Blood 04/09/2025 9:00 AM EDT 04/09/2025 9:06 AM EDT us Pierce Barton MD LAB BLOOD BKR ORDERABLES Final Result Performing Organization Address [facility] Co de Phone Number [address] [address] * (ABNORMAL) TSH (04/09/2025 9:00 AM EDT) TSH 0.21(L) 0.27 - 4.20 uIU/mL [facility] Blood 04/09/2025 9:00 AM EDT 04/09/2025 9:06 AM EDT us Pierce Barton MD LAB BLOOD BKR ORDERABLES Final Result Performing Organization Address City/[facility]/ZIP Co de Phone Number [address] [address] * Free T4 (04/09/2025 9:00 AM EDT) FREE T4 0.9 0.9 - 1.7 ng/dL [facility] Blood 04/09/2025 9:00 AM EDT 04/09/2025 9:06 AM EDT us Pierce Barton MD LAB BLOOD BKR ORDERABLES Final Result Performing Organization Address City/[facility]/ZIP Co de Phone Number [address] [address] * Ionized calcium (04/09/2025 9:00 AM EDT) IONIZED CALCIUM 1.22 1.14 - 1.37 mmol/L [facility] Blood 04/09/2025 9:00 AM EDT 04/09/2025 9:07 AM EDT us Pierce Barton MD LAB BLOOD BKR ORDERABLES Final Result Performing Organization Address [facility] Co de Phone Number [address] [address] * (ABNORMAL) BI MAMMOGRAM SCREENING WITH TOMOSYNTHESIS [...] Relevant to Health Maintenance Insurance [address] [place], [place] [id number] S S S S Care Teams Refinery Operator Visbreaking Relationship Specialty Start Date End Date Wilfred Chavez MD [address] [place] [address] [address] [place] [address] PCP - General 08/01/17 Additional Source Comments The information contained in this document represents components of the legal health record. It is not the complete legal health record.[facility]
--- OUTSIDE RECORDS SUMMARY | 2025-06-01 09:22 | XMS_ITS | Encounter Summary ---
Author Organization [facility] Address [address] [place] [address] Phone Care Team Providers Care Rivet Tapping Machine Operator Name Role Phone Wilfred Chavez MD Primary Care Provider Encounter Details Date Type Department Care Team (Late st Contact Info) Description 10/08/2024 Transcribe Orders Virtual Department [address] [place] [address] Wilfred Chavez MD [address] [place] [address] [place] [address] Breast screening (Primary Dx) Social History Tobacco [...] st Contact Info) Description 10/08/2024 Procedure Pass [address] [address] 06/04/2025 4:00 PM EST Appointment [address] [address] Wilfred Chavez MD [address] [place] [address] [place] [address] Scheduled Orders Name Type Priority Associated Diagnoses Orde r Schedule Mammogram Screening (Bilateral) Imaging Routine Breast screening Expected: 11/08/2024, Expires: 10/08/2025 documented as of this encounter Visit Diagnoses Diagnosis Breast screening- Primary Breast screening, unspecified documented in this encounter Care Teams Rivet Tapping Machine Operator Relationship Specialty Start Date End Date Wilfred Chavez MD [address] [place] [address] [place] [address] PCP - General 08/01/17 documented as of this encounter Additional Source Comments The information contained in this document represents components of the legal health record. It is not the complete legal health record.[facility]
--- OUTSIDE RECORDS SUMMARY | 2025-06-01 09:22 | XMS_ITS | Encounter Summary ---
Author Organization [facility] Address [address] [place] [address] Phone Care Team Providers Care Foreign Languages Department Chair Name Role Phone Wilfred Chavez MD Primary Care Provider Encounter Details Date Type Department Care Team (Late st Contact Info) Description 05/01/2021 Procedure Pass [address] [address] Social History Tobacco Use Types Packs/Day Years [...] st Contact Info) Description 10/08/2024 Procedure Pass [address] [address] 06/04/2025 4:00 PM EST Appointment [address] [address] Wilfrde Chavez MD [address] [place] [address] [place] [address] documented as of this encounter Visit Diagnoses Not on filedocumented in this encounter Additional Health Concerns Infection Onset Date Last Indicated Resolved Time CoV-Risk 10/22/2021 10/22/2021 11/02/2021 1:23 AM EDT CoV-Risk 07/26/2022 07/26/2022 08/06/2022 1:22 AM EST documented as of this encounter Care Teams Foreign Languages Department Chair Relationship Specialty Start Date End Date Wilfred Chavez MD [address] [place] [address] [place] [address] PCP - General 08/01/17 documented as of this encounter Additional Source Comments The information contained in this document represents components of the legal health record. It is not the complete legal health record.[facility]
--- OUTSIDE RECORDS SUMMARY | 2025-06-01 09:23 | XMS_ITS | Patient Health Record ---
Author Organization Wilfred Chavez MD Address [address] [place], [place] [id number] Care Team Providers Care Electrolytic De Scaler Name Role Phone Wilfred Chavez Primary Care Provider Allergies Allergen (clinical drug ingredient) Drug/Non Drug Allergy documented on EMR Reaction Allergy Type Onset Date Status ibuprofen Ibuprofen GI Upset Drug Allergy Active Results Component Value Reference Range Notes Complete Blood Count Auto Di ff Reviewed date:03/05/2025 04:53:50 PM Interpretation: Performing Lab:[facility], [address] [place] [phone] Notes/Report: White Blood Count 4.4 4.8-10.8 X10*3/uL [...] NRBC Abs Auto 0.000 0.0-0.012 X10*3/uL Comprehensive Summit. Panel Fa st Reviewed date:03/05/2025 04:52:52 PM Interpretation: Performing Lab:[address] [phone] Notes/Report: Sodium 141 135-145 mmol/L Potassium 4.3 [...] Panel Reviewed date:03/05/2025 04:54:00 PM Interpretation: Performing Lab:[facility], [address] [place] [phone] Notes/Report: Triglycerides 39 <150 mg/dL Desirable Triglyceride: [...] Folate Reviewed date:03/05/2025 04:53:10 PM Interpretation: Performing Lab:[facility], [address] [place] [phone] Notes/Report: Vitamin B12 > 2000 200-900 pg/mL NORMAL 200-900 PG/ML INDETERMINATE 160-199 PG/ML DEFICIENT < 160 PG/ML Folate 11.1 > or = 4.0 ng/mL Reference Values: > or = 4.0 ng/mL < 4.0 ng/mL suggests folate deficiency Methotrexate, aminopterin and folinic acid (leucovorin) are chemotherapeutic agents whose molecular structures are similar to folate; therefore, the Manager Garage folate assay cannot be used for patients using these drugs. Microalbumin, Random Reviewed date:03/05/2025 04:53:26 PM Interpretation: Performing Lab:[facility], [address] [place] [phone] Notes/Report: Creatinine Urine 136.87 Microalbumin Urine 22.0 Microalbum/Creatinine Ratio Ur 16.0 <30 ug/mg cr Albumin/Creatinine Ratio Reference Ranges: Normal: < 30 ug/mg creatinine Microalbuminuria: 30 - 300 ug/mg creatinine Clinical Albuminuria: > 300 ug/mg creatinine Hemoglobin A1c Reviewed date:03/05/2025 04:53:00 PM Interpretation: Performing Lab:[facility], [address] [place] [phone] Notes/Report: Hemoglobin A1c % 5.5 <6.0 % [...] average glucose, using the formula of the S9K-Fesnagq Average Glucose study (ADAG), Diabetes Care, Vol.31,#8, 2007 UA ClnCatch+Micro w/rflx Cul t Reviewed date:2025 04:57:40 PM Interpretation: Performing Lab:[facility], [address] [place] [phone] Notes/Report: [id number] Urine, Clean Catch Color Urine Yellow Appearance Urine Clear PH 7.5 5.0-9.0 Glucose Urine UA Negative Negative mg/dL Urine Blood Negative Negative Specific [place] - Urine 1.020 1.005-1.025 Urine Protein Negative Neg-Trace mg/dL Urine Ketones Negative Negative mg/dL Nitrite Urine Negative Negative Leukocyte Esterase Urine Moderate (2+) Negative RBC Urine 0-2 0-2 /HPF WBC Urine 6-10 0-5 /HPF Squamous Epithelial Cell Urine 3-5 0-2 /HPF Bacteria Urine None Seen None Seen Hyaline Casts Urine 0-2 0-2 /LPF TSH reflex Free T4 Reviewed date:03/11/2025 12:29:23 PM Interpretation: Performing Lab:[facility], [address] [place] [phone] Notes/Report: TSH reflex Free T4 0.47 0.32-4.0 uIU/mL Urine Culture Reviewed date:2025 04:57:18 PM Interpretation: Performing Lab:[facility], [address] [place] [phone] Notes/Report: Urine Culture Report Result Urine Culture < 10,000 cfu/ml Hold Gold Reviewed date:03/11/2025 12:29:14 PM Interpretation: Performing Lab:[facility], [address] [place] [phone] Notes/Report: Hold Gold See Note Specimen held [...] Once a day for 30 day(s) Not-Taking U30-Kqafkj 5000 1 tablet Orally once a day Active Magnesium 250 MG 1 tablet with a meal Orally Once a day for 30 day(s) Not-Taking Hyoscyamine Sulfate 0.125 MG 1 tablet as needed Orally twice a day for 30 days 05/14/2025 Active PASTE PLANT SUPERVISOR Thyroid 90 MG 1 tablet on an empty stomach Orally Once a day for 30 day(s) Active Immunizations Vaccine Route Administration Date Status [...] Status Risk Notes Problem Basal cell carcinoma (2946707) Basal cell carcinoma (C44.91) Active confirmed Problem Hypothyroid (27776424) Hypothyroid (E03.9) Active confirmed Problem 878609310 Vitamin B12 deficiency (E53.8) Active confirmed Problem 52525971 Post menopausal problems (N95.9) Active confirmed Problem 270857424 Cervical disc disease (M50.90) Active confirmed Problem Peptic ulcer (55408582) Peptic ulcer (K27.9) Active confirmed Problem 302167091 Anemia, unspecified type (D64.9) Active confirmed Problem 741747126 Abnormal mammogram (R92.8) Active confirmed Problem 500269645 Prediabetes (R73.03) Active confirmed Problem Irritable bowel (58070389) Irritable bowel (K58.9) Active confirmed Problem 612745375 Cataract, unspecified cataract type, unspecified laterality (H26.9) Active confirmed Vital Signs Blood pressure diastolic 74 mm Hg 05/14/2025 Height 66.5 in 05/14/2025 Blood pressure systolic 140 mm Hg 05/14/2025 Weight 155 lbs 05/14/2025 BMI 24.64 kg/m2 05/14/2025 Encounters Encounter Location Date Provider Diagnosis Wilfred Chavez MD [address] [place] [id number] 03/05/2025 Wilfred Chavez Blood tests for routine general physical examination Z00.00 ; Vitamin B12 deficiency E53.8 ; Prediabetes R73.03 and Anemia, unspecified type D64.9 Wilfred Chavez MD [address] [place] [id number] 03/11/2025 Wilfred Chavez Annual physical exam Z00.00 ; Hypothyroid E03.9 ; Abdominal pain R10.9 ; Prediabetes R73.03 ; Vitamin B12 deficiency E53.8 and Depression screening Z13.31 Wilfred Chavez MD [address] [place] [id number] 04/19/2025 Wilfred Chavez Peptic ulcer K27.9 and Abdominal bruit R09.89 Wilfred Chavez MD [address] [place], [place] [id number] 05/14/2025 Wilfred Chavez Irritable bowel K58.9 Wilfred Chavez MD [address] [place] [address] Drive [address] [place] [id number] 03/16/2025 Wilfred Chavez Assessments Encounter Date Diagnosis [...] had cat scan that showed no abnormalities 05/14/2025 Irritable bowel (ICD-10 - K58.9) patient verbalized understanding of medication and directions for use 03/05/2025 Vitamin B12 deficiency (ICD-10 - E53.8) 03/11/2025 Abdominal pain (ICD-10 - R10.9) pending diagnostic testing, US order faxed to [facility] dept 03/05/2025 Prediabetes (ICD-10 - R73.03) [...] skeleton 11/08/2020 Next Appt Details Provider Name:Wilfred Collado ier, 06/15/2025 02:00:00 PM, [address], [address], [place], [place], [id number], Provider Name:Wilfred Collado ier, 03/07/2026 07:00:00 AM, [address], [address], [place], [place], [id number], Provider Name:Wilfred Collado ier, 03/14/2026 09:30:00 AM, [address], [address], [place], [place], [id number], Insurance Providers Payer Name Payer Address Payer Phone Subscriber Number Group Number Insured Name Patient Relationship to Insured Coverage Start Date Coverage End Date [address] [place] [address] [id number] Tiffanie Kirby Self - patient is the insured Medical (General) History Medical History History ICD Code 03/18/2013 Colonoscopy - repeat in 10 yea rs going to do cologard 07/2015 Pap Smear w/ Dr.Lisa Butterfield,[facility] MAINTENANCE SERVICES DISPATCHER ([phone])
--- OUTSIDE RECORDS SUMMARY | 2025-06-01 09:24 | XMS_ITS | Encounter Summary ---
Author Organization [facility] Address [address] [place] [address] Phone Care Team Providers Care Brake Repairer Railroad Name Role Phone Wilfred Chavez MD Primary Care Provider Encounter Details Date Type Department Care Team (Late st Contact Info) Description 10/10/2022 Transcribe Orders Virtual Department [address] [place] [address] Wilfred Chavez MD [address] [place] [address] [place] [address] Encounter for screening mammogram for malignant neoplasm [...] st Contact Info) Description 10/08/2024 Procedure Pass [address] [address] 06/04/2025 4:00 PM EST Appointment [address] [address] Wilfred Chavez MD [address] [place] [address] [place] [address] documented as of this encounter Results * [...] breast documented in this encounter Care Teams Brake Repairer Railroad Relationship Specialty Start Date End Date Wilfred Chavez MD [address] [place] [address] [place] [address] PCP - General 08/01/17 documented as of this encounter Additional Source Comments The information contained in this document represents components of the legal health record. It is not the complete legal health record.[facility]
--- OUTSIDE RECORDS SUMMARY | 2025-06-01 09:24 | XMS_ITS | Encounter Summary ---
Author Organization [facility] Address [address] [place] [address] Phone Care Team Providers Care Office Machinery Or Equipment Installer Name Role Phone Wilfred Chavez MD Primary Care Provider Encounter Details Date Type Department Care Team (Late st Contact Info) Description 10/10/2022 Procedure Pass [address] [address] Social History Tobacco Use Types Packs/Day Years [...] st Contact Info) Description 10/08/2024 Procedure Pass [address] [address] 06/04/2025 4:00 PM EST Appointment [address] [address] Wilfred Chavez MD [address] [place] [address] [place] [address] documented as of this encounter Visit Diagnoses Not on filedocumented in this encounter Care Teams Office Machinery Or Equipment Installer Relationship Specialty Start Date End Date Wilfred Chavez MD [address] [place] [address] [place] [address] PCP - General 08/01/17 documented as of this encounter Additional Source Comments The information contained in this document represents components of the legal health record. It is not the complete legal health record.[facility]
--- OUTSIDE RECORDS SUMMARY | 2025-06-01 09:24 | XMS_ITS | Encounter Summary ---
Author Organization [facility] Address [address] [address] Phone Care Team Providers Care Program Manager Environmental Planning Name Role Phone Wilfred Chavez MD Primary Care Provider Encounter Details Date Type Department Care Team (Late st Contact Info) Description 12/02/2023 Ancillary Orders [facility]- [address] [address] Wilfred Chavez MD [address] [place] [address] [place] [address] Abnormal finding on mammography (Primary Dx) Social [...] st Contact Info) Description 10/08/2024 Procedure Pass [address] [address] 06/04/2025 4:00 PM EST Appointment [address] [address] Wilfred Chavez MD [address] [place] [address] [place] [address] documented as of this encounter Results * [...] mammography documented in this encounter Care Teams Program Manager Environmental Planning Relationship Specialty Start Date End Date Wilfred Chavez MD [address] [place] [address] [place] [address] PCP - General 08/01/17 documented as of this encounter Additional Source Comments The information contained in this document represents components of the legal health record. It is not the complete legal health record.[facility]
--- OUTSIDE RECORDS SUMMARY | 2025-06-01 09:24 | XMS_ITS | Encounter Summary ---
Author Organization [facility] Address [address] [place] [address] Phone Care Team Providers Care Underwater Welder Name Role Phone Wilfred Chavez MD Primary Care Provider Encounter Details Date Type Department Care Team (Late st Contact Info) Description 09/29/2018 Ancillary Orders Virtual Department [address] [place] [address] Wilfred Chavez MD [address] [place] [address] [place] [phone] Breast screening Social History Tobacco Use Types [...] (Late Contact Info) Description 10/08/2024 Procedure Pass [address] [address] 06/04/2025 4:00 PM EST Appointment [address] [address] Wilfred Chavez MD [address] [place] [address] [place] [address] documented as of this encounter Results * [...] documented as of this encounter Care Teams Underwater Welder Relationship Specialty Start Date End Date Wilfred Chavez MD [address] [place] [address] [place] [address] PCP - General 08/01/17 documented as of this encounter Additional Source Comments The information contained in this document represents components of the legal health record. It is not the complete legal health record.[facility]
--- OUTSIDE RECORDS SUMMARY | 2025-06-01 09:24 | XMS_ITS | Encounter Summary ---
Author Organization [facility] Address [address] [place] [address] Phone Care Team Providers Care Oxygen Equipment Preparer Name Role Phone Wilfred Chavez MD Primary Care Provider Encounter Details Date Type Department Care Team (Late st Contact Info) Description 04/08/2020 Procedure Pass [address] [address] Social History Tobacco Use Types Packs/Day Years [...] st Contact Info) Description 10/08/2024 Procedure Pass [address] [address] 06/04/2025 4:00 PM EST Appointment [address] [address] Wilfred Chavez MD [address] [place] [address] [place] [address] documented as of this encounter Visit Diagnoses Not on filedocumented in this encounter Additional Health Concerns Infection Onset Date Last Indicated Resolved Time CoV-Exposed Comment:Recent close contact 07/20/2020 07/20/2020 08/03/2020 1:24 AM EST CoV-Risk 10/22/2021 10/22/2021 11/02/2021 1:23 AM EDT CoV-Risk 07/26/2022 07/26/2022 08/06/2022 1:22 AM EST documented as of this encounter Care Teams Oxygen Equipment Preparer Relationship Specialty Start Date End Date Wilfred Chavez MD [address] [place] [address] [place] [address] PCP - General 08/01/17 documented as of this encounter Additional Source Comments The information contained in this document represents components of the legal health record. It is not the complete legal health record.[facility]
--- OUTSIDE RECORDS SUMMARY | 2025-06-01 09:24 | XMS_ITS | Encounter Summary ---
Author Organization [facility] Address [address] [place] [address] Phone Care Team Providers Care Osteopathic Neurologist Name Role Phone Wilfred Chavez MD Primary Care Provider Encounter Details Date Type Department Care Team (Late st Contact Info) Description 09/24/2023 Procedure Pass [facility], [address] [address] Social History Tobacco Use Types Packs/Day Years [...] st Contact Info) Description 10/08/2024 Procedure Pass [address] [address] 06/04/2025 4:00 PM EST Appointment [address] [address] Wilfred Chavez MD [address] [place] [address] [place] [address] documented as of this encounter Visit Diagnoses Not on filedocumented in this encounter Care Teams Osteopathic Neurologist Relationship Specialty Start Date End Date Wilfred Chavez MD [address] [place] [address] [place] [address] PCP - General 08/01/17 documented as of this encounter Additional Source Comments The information contained in this document represents components of the legal health record. It is not the complete legal health record.[facility]
--- OUTSIDE RECORDS SUMMARY | 2025-06-01 09:24 | XMS_ITS | Encounter Summary ---
Author Organization [facility] Address [address] [place] [address] Phone Care Team Providers Care Perforator Loader Name Role Phone Wilfred Chavez MD Primary Care Provider Encounter Details Date Type Department Care Team (Late st Contact Info) Description 04/08/2020 Ancillary Orders Virtual Department [address] [place] [address] Wilfred Chavez MD [address] [place] [address] [place] [address] Breast screening Social History Tobacco Use Types [...] (Late Contact Info) Description 10/08/2024 Procedure Pass [address] [address] 06/04/2025 4:00 PM EST Appointment [address] [address] Wilfred Chavez MD [address] [place] [address] [place] [address] documented as of this encounter Results * [...] documented as of this encounter Care Teams Perforator Loader Relationship Specialty Start Date End Date Wilfred Chavez MD [address] [place] [address] [place] [address] PCP - General 08/01/17 documented as of this encounter Additional Source Comments The information contained in this document represents components of the legal health record. It is not the complete legal health record.[facility]
--- OUTSIDE RECORDS SUMMARY | 2025-06-01 09:24 | XMS_ITS | Encounter Summary ---
Author Organization [facility] Address [address] [place] [address] Phone Care Team Providers Care Pumper Head Name Role Phone Wilfred Chavez MD Primary Care Provider Encounter Details Date Type Department Care Team (Late st Contact Info) Description 09/24/2023 Transcribe Orders Virtual Department [address] [place] [address] Wilfred Chavez MD [address] [place] [address] [place] [address] Breast screening (Primary Dx) Social History Tobacco [...] st Contact Info) Description 10/08/2024 Procedure Pass [address] [address] 06/04/2025 4:00 PM EST Appointment [address] [address] Wilfred Chavez MD [address] [place] [address] [place] [address] documented as of this encounter Results * [...] MLO projection. No associated microcalcification. Procedure Note Hcetor Yanez MD - 11/29/2023 BI MAMMOGRAM SCREENING [...] unspecified documented in this encounter Care Teams Pumper Head Relationship Specialty Start Date End Date Wilfred Chavez MD [address] [place] [address] Dr Zhang, [place] [address] PCP - General 08/01/17 documented as of this encounter Additional Source Comments The information contained in this document represents components of the legal health record. It is not the complete legal health record.[facility]
--- OUTSIDE RECORDS SUMMARY | 2025-06-01 09:25 | XMS_ITS | Encounter Summary ---
Author Organization [facility] Address [address] [place] [address] Phone Care Team Providers Care Supervisor Metal Cans Name Role Phone Wilfred Chavez MD Primary Care Provider Encounter Details Date Type Department Care Team (Late st Contact Info) Description 07/20/2020 Transcribe Orders Virtual Department [address] [place] [address] Wilfred Chavez MD [address] [place] [address] [place] [phone] Exposure to SARS-associated coronavirus (Primary Dx) Social [...] st Contact Info) Description 10/08/2024 Procedure Pass [address] [address] 06/04/2025 4:00 PM EST Appointment [address] [address] Wilfred Chavez MD [address] [place] [address] [place] [id number] documented as of this encounter Results * COVID-19 PCR Order (07/20/2020 3:25 PM EST) COVID Testing Status Sent to [facility] Symptomatic? NO [facility] Other 07/20/2020 3:25 PM EST 07/20/2020 6:20 PM EST us Wilfred Chavez MD LAB GENERAL ORDERABLES Edited Result - Final [facility] [address] [place] [address] documented in this encounter Visit Diagnoses Diagnosis Exposure to SARS-associated coronavirus- Primary documented in this encounter Additional Health Concerns Infection Onset Date Last Indicated Resolved Time CoV-Exposed Comment:Recent close contact 07/20/2020 07/20/2020 08/03/2020 1:24 AM EST CoV-Risk 10/22/2021 10/22/2021 11/02/2021 1:23 AM EDT CoV-Risk 07/26/2022 07/26/2022 08/06/2022 1:22 AM EST documented as of this encounter Care Teams Supervisor Metal Cans Relationship Specialty Start Date End Date Wilfred Chavez MD [address] [place] [address] [place] [address] PCP - General 08/01/17 documented as of this encounter Additional Source Comments The information contained in this document represents components of the legal health record. It is not the complete legal health record.[facility]
== END 2025-06-01 08:52 | disposition home or self-care (01) ==
LOC: HO.MAMMO 08:51
PROVIDERS: PCP Internal Medicine; Visit Provider Family Medicine
DX: Z13.820 Encounter for screening for osteoporosis (principal); M85.89 Other specified disorders of bone density and structure, multiple sites
CPT/HCPCS: 77080

== ENCOUNTER → 2025-06-01 09:15 | Outpatient (BNV) | payer OTHER, SELFPAY | PROVIDERS: PCP Internal Medicine; Visit Provider Radiology Diagnostic Radiology | DX: E28.39 Other primary ovarian failure (principal) | CPT/HCPCS: 77080 ==

== ENCOUNTER 2025-06-18 15:54 | Outpatient (REF) | payer OTHER, SELFPAY ==
--- OUTSIDE RECORDS SUMMARY | 2024-01-13 03:39 | XMS_ITS ---
Author Organization Wilfred Chavez MD Address [address] [place] [address] [place] [phone] Care Team Providers Care Dispensing Optician Apprentice Name Role Phone Wilfred Chavez Primary Care Provider [phone] REASON FOR VISIT FYI cancelled GI appt Encounters Encounter Location Date Provider Diagnosis Wilfred Chavez MD [address] [place] [address] [place] [phone] 01/13/2024 Wilfred Chavez Plan Of Treatment Next Appt Details Provider Name:Wilfred Collado ier, 03/07/2026 07:00:00 AM, [address] [place] [address], [place] [address], [place], [place], [phone], Provider Name:Wilfred Collado ier, 03/14/2026 09:30:00 AM, [address] [place] [address], [address], [phone], Progress Notes * Tiffanie KIRBY MDOB: [birth year] (58 yo F)Acc No.[id number]:01/13/2024 Patient: Tiffanie Barney :1965 A ge:58 Y S ex:Female Address:[address] [place] [phone] * true * Date: Generated for Printi ng/Faxing/eTransmitting on: 08/18/2024 03:57 PM EST
--- OUTSIDE RECORDS SUMMARY | 2024-02-24 04:29 | XMS_ITS ---
Author Organization Wilfred Chavez MD Address [address] [place] [address] [place] [phone] Care Team Providers Care Painter Ordnance Name Role Phone Wilfred Chavez Primary Care Provider REASON FOR VISIT ER visit rec'd Encounters Encounter Location Date Provider Diagnosis Wilfred Chavez MD [address] [place] [address] [place] [phone] 02/24/2024 Wilfred Chavez Plan Of Treatment Next Appt Details Provider Name:Wilfred Collado ier, 03/07/2026 07:00:00 AM, [address] [place] [address], [place] [address], [place], [place], [phone], Provider Name:Wilfred Collado ier, 03/14/2026 09:30:00 AM, [address] [place] [address], [place] [address], [place], [place], [phone], Progress Notes * Tiffanie KIRBY MDOB: [birth year] (58 yo F)Acc No.[id number]:02/24/2024 Patient: Tiffanie Barney :1965 A ge:58 Y S ex:Female Address:[address] [place] [id number] * true * Date: Generated for Printi ng/Faxing/eTransmitting on: 08/18/2024 03:57 PM EST
--- OUTSIDE RECORDS SUMMARY | 2024-02-28 04:15 | XMS_ITS ---
Author Organization Wilfred Chavez MD Address [address] [place] [phone] Care Team Providers Care Predictive Maintenance Technician Name Role Phone Wilfred Chavez Primary Care Provider Allergies Allergen (clinical drug ingredient) Drug/Non Drug Allergy documented on EMR Reaction Allergy Type Onset Date Status ibuprofen Ibuprofen GI Upset Drug Allergy Active REASON FOR VISIT f/u er Medications Medication SIG (Take, Route, Frequency, Duration) Notes Start Date End Date Status TABLE ASSEMBLER Thyroid 90 MG 1 tablet on an empty stomach Orally Once a day for 30 day(s) Active Y49-Dkcdvz 5000 1 tablet Orally once a day Active Vitamin D 50 MCG (1999) 1 tablet Orally Once a day for 30 day(s) Active Magnesium 250 MG 1 tablet with a meal Orally Once a day for 30 day(s) Not-Taking Vital Signs Blood pressure systolic 132 mm Hg 02/28/20 24 Blood pressure diastolic 70 mm Hg 024 Height 66.5 in 02/28/2024 Weight 146 lbs 02/28/2024 BMI 23.21 kg/m2 02/28/2024 weight is down 3 pounds [facility] e 12-16-23 Encounters Encounter Location Date Provider Diagnosis Wilfred Chavez MD [address] [place] [address] Drive [address] [place] [phone] 02/28/2024 Wilfred Chavez Gastroenteritis K52. 9 Assessments Encounter Date Diagnosis (ICD Code) Assessment Notes Treatment Notes Treatment Clinical Notes Section Notes 02/28/2024 Gastroenteritis (ICD-10 - K52.9) advised to maintain adequate hydration and continue bland diet for a couple of days, since she is getting better so will observe, and patient will advise of any further issues. Plan Of Treatment Treatment Notes Assessment Notes Gastroenteritis advised to maintain adequate hydration and continue bland diet for a couple of days, since she is getting better so will observe, and patient will advise of any further issues. Next Appt Details Provider Name:Wilfred Collado ier, 03/07/2026 07:00:00 AM, [address] [facility], [address], [place], [place], [phone], Provider Name:Wilfred Collado ier, 03/14/2026 09:30:00 AM, [address] [facility], [address], [place], [place], [phone], Progress Notes * Tiffanie KIRBY MDOB: [birth year] (59 yo F)Acc No.[id number]:02/28/2024 Progress Notes Patient: Dada sanchezfloydChula rasmussenan Mack Provider: Cristian Chavez MD :1965 A ge:58 Y S ex:Female Date:02/28/2024 Address:[address] [place], [place] [phone] Subjective: * Chief Complaints: * F /u er * HPI: S ymptom(s): patient is a 58 yo female here for follow up from recent ER visit, las week woke with spasm of pain. had a little diarrhea. felt bloated and gassy . pain all over abdomen and into back. got morphine and it got better. this week no appetite. no nausea and no diarrhea. feels great today. 2 days ago pain into left flank and back. tylenol helps it. * ROS: G eneral/Constitutional: Denies C hills. D enies F atigue. D enies F ever. D enies H eadache. E NT: Patient denies d ecreased sense of smell , any loss of taste , sore throat. D enies S ore throat. R espiratory: Denies C ough. D enies S hortness of breath at rest. D enies S hortness of breath with exertion. G astrointestinal: Admits A bdominal pain. D enies B lood in stool.?Denies C hange in bowel habits. D enies C onstipation. D enies D iarrhea.?Denies H eartburn. D enies N ausea. D enies V omiting. M usculoskeletal: Patient denies m uscle aches. P eripheral Vascular: Patient denies r ed and blue toes. * Medical History: * Surgical History: * Hospitalization/Major Diagno stic Procedure: * Medications: T akingNP Thyroid 90 MG Tablet 1 tablet on an empty stomach Orally Once a dayVitamin D 50 MCG (1999) Tablet 1 tablet Orally Once a qqpK87-Zovlvn 5000 Tablet Chewable 1 tablet Orally once a dayTaking TABLE ASSEMBLER Thyroid 90 MG Tablet 1 tablet on an empty stomach Orally Once a dayTaking Vitamin D 50 MCG (1999) Tablet 1 tablet Orally Once a dayTaking Q42-Psimla 5000 Tablet Chewable 1 tablet Orally once a dayNot-Taking/PRNMagnesium 250 MG Tablet 1 tablet with a meal Orally Once a dayMedication List reviewed and reconciled with the patientNot-Taking/PRN Magnesium 250 MG Tablet 1 tablet with a meal Orally Once a dayMedication List reviewed and reconciled with the patient * Allergies: I buprofen: GI Upsetyes[Allergies Verified] Objective: * Vitals: H t: 66.5, Wt:146, BMI:23.21, BP:132/70 weight is down 3 pounds since 12-16-23. * Examination: G eneral Examination: GENERAL APPEARANCE: alert, well hydrated, in no distress . SKIN: good turgor. HEART: regular rate and rhythm, no murmurs, rubs, gallops. LUNGS: no wheezes, rales, rhonchi, good air movement, clear to auscultation bilaterally. ABDOMEN: very minimal diffuse tenderness. ? Assessment: * Assessment: 1. G astroenteritis - K52.9 (Primary) Plan: * Treatment: * Procedure Codes: * * Sign off status: Completed true * Provider: Cristian Chavez MD Date: 0 02/28/2024 Generated for Otto moffett/Shanon/Jaisonitting on: 08/18/2024 03:58 PM EST History and Physical Notes * HPI (History of Present Illness) Category Sub-Category Detail Notes Category Not es Symptom(s) patient is a 58 yo female here for follow up from recent ER visit, las week woke with spasm of pain. had a little diarrhea. felt bloated and gassy . pain all over abdomen and into back. got morphine and it got better. this week no appetite. no nausea and no diarrhea. feels great today. 2 days ago pain into left flank and back. tylenol helps it Examination Category Sub-Category Detail Notes Category Not es General Examination GENERAL APPEARANCE: alert, w ell hydrated, in no distress HEART: regular rate and rhy thm, no murmurs, rubs, gallops LUNGS: no wheezes, rales, r honchi, good air movement, clear to auscultation bilaterally ABDOMEN: very minimal diffuse tenderness SKIN: good turgor
--- OUTSIDE RECORDS SUMMARY | 2025-03-05 02:30 | XMS_ITS ---
Author Organization Wilfred Chavez MD Address [address] [place], [place] [phone] Care Team Providers Care Insulator Cutter And Former Name Role Phone Wilfred Chavez Primary Care Provider [phone] Results Component Value Reference Range Notes Complete Blood Count Auto Di ff Reviewed date:03/05/2025 04:53:50 PM Interpretation: Performing Lab:[facility], [address] [place] [phone] Notes/Report: White Blood Count 4.4 4.8-10.8 X10*3/uL [...] NRBC Abs Auto 0.000 0.0-0.012 X10*3/uL Comprehensive [place]. Panel Fa st Reviewed date:03/05/2025 04:52:52 PM Interpretation: Performing Lab:[address] [phone] Notes/Report: Sodium 141 135-145 mmol/L Potassium 4.3 [...] Panel Reviewed date:03/05/2025 04:54:00 PM Interpretation: Performing Lab:[address] [phone] Notes/Report: Triglycerides 39 <150 mg/dL Desirable Triglyceride: [...] Folate Reviewed date:03/05/2025 04:53:10 PM Interpretation: Performing Lab:[address] [phone] Notes/Report: Vitamin B12 > 2000 200-900 pg/mL NORMAL 200-900 PG/ML INDETERMINATE 160-199 PG/ML DEFICIENT < 160 PG/ML Folate 11.1 > or = 4.0 ng/mL Reference Values: > or = 4.0 ng/mL < 4.0 ng/mL suggests folate deficiency Methotrexate, aminopterin and folinic acid (leucovorin) are chemotherapeutic agents whose molecular structures are similar to folate; therefore, the Corner Former folate assay cannot be used for patients using these drugs. Microalbumin, Random Reviewed date:03/05/2025 04:53:26 PM Interpretation: Performing Lab:[facility], [address] [place] [phone] Notes/Report: Creatinine Urine 136.87 Microalbumin Urine 22.0 Microalbum/Creatinine Ratio Ur 16.0 <30 ug/mg cr Albumin/Creatinine Ratio Reference Ranges: Normal: < 30 ug/mg creatinine Microalbuminuria: 30 - 300 ug/mg creatinine Clinical Albuminuria: > 300 ug/mg creatinine Hemoglobin A1c Reviewed date:03/05/2025 04:53:00 PM Interpretation: Performing Lab:[address] [phone] Notes/Report: Hemoglobin A1c % 5.5 <6.0 % [...] average glucose, using the formula of the R2Q-Aslhezl Average Glucose study (ADAG), Diabetes Care, Vol.31,#8, Feb. 2007 UA ClnCatch+Micro w/rflx Cul t Reviewed date:2025 04:57:40 PM Interpretation: Performing Lab:[facility], [address] [place] [phone] Notes/Report: [id number] Urine, Clean Catch Color Urine Yellow Appearance Urine Clear PH 7.5 5.0-9.0 Glucose Urine UA Negative Negative mg/dL Urine Blood Negative Negative Specific [place] - Urine 1.020 1.005-1.025 Urine Protein Negative [...] Location Date Provider Diagnosis Wilfred Chavez MD [address] [place] [address] [address] [place], [place] [phone] 03/05/2025 Wilfred Chavez Blood tests for routine [...] Treatment Next Appt Details Provider Name:Wilfred duenas, 03/07/2026 07:00:00 AM, [address] [place] [address], [address], [place], [place], [phone], Provider Name:Wilfred duenas, 03/14/2026 09:30:00 AM, [address], [address], [place], [place], [phone], Progress Notes * Tiffanie KIRBY MDOB: [birth year] (60 yo F)Acc No.[id number]:03/05/2025 Progress Note Patient: Tiffanie DOLL Provider: Cristian Chavez MD :1965 A ge:59 Y S ex:Female Date:03/05/2025 Address:[address] [place], [place] [phone] Subjective: * Chief Complaints: * 1 . [...] - 03/05/2025 07:30 AM) L AB: Comprehensive [place]. Panel Fast (Collection Date & Time - [...] - 03/05/2025 07:30 AM) L AB: Comprehensive [place]. Panel Fast (Collection Date & Time - [...] - 03/05/2025 07:30 AM) L AB: Comprehensive [place]. Panel Fast (Collection Date & Time - [...] MD Date: 0 03/05/2025 Generated for Otto moffett/Shanon/Galesmitting on: 08/18/2024 04:02 PM EST
--- OUTSIDE RECORDS SUMMARY | 2025-03-11 03:00 | XMS_ITS ---
Author Organization Wilfred Chavez MD Address [address] [place], [place] [phone] Care Team Providers Care Freight Separator Name Role Phone Wilfred Chavez Primary Care Provider Allergies Allergen (clinical drug ingredient) Drug/Non Drug Allergy documented on EMR Reaction Allergy Type Onset Date Status ibuprofen Ibuprofen GI Upset Drug Allergy Active Results Component Value Reference Range Notes TSH reflex Free T4 Reviewed date:03/11/2025 12:29:23 PM Interpretation: Performing Lab:[facility], [address] [place] [phone] Notes/Report: TSH reflex Free T4 0.47 0.32-4.0 uIU/mL REASON FOR VISIT ANNUAL EXAM Medications Medication SIG (Take, Route, Frequency, Duration) Notes Start Date End Date Status SUBSTATION TECHNICIAN Thyroid 90 MG 1 tablet on an empty stomach Orally Once a day for 30 day(s) Active D65-Avspyl 5000 1 tablet Orally once a day Active Vitamin D 50 MCG (2000 UT) 1 tablet Orally Once a day for 30 day(s) Not-Taking Magnesium 250 MG 1 tablet with a [...] Problem Status W/U Status Risk Notes Problem Hypothyroid (28448265) Hypothyroid (E03.9) Active confirmed Vital Signs Blood pressure systolic 102 mm Hg 03/11/20 25 Blood pressure diastolic 60 mm Hg 025 Height 66.5 in 03/11/2025 Weight 152 lbs 03/11/2025 BMI 24.16 kg/m2 03/11/2025 weight is up 6 pounds since 02-28-24 Encounters Encounter Location Date Provider Diagnosis Wilfred Chavez MD [address] [place] [phone] 03/11/2025 Wilfred Chavez Annual physical exam Z00.00 ; Hypothyroid E03.9 ; Abdominal pain R10.9 ; Prediabetes R73.03 ; Vitamin B12 deficiency E53.8 and Depression screening Z13.31 Assessments Encounter Date Diagnosis (ICD Code) Assessment Notes Treatment Notes Treatment Clinical Notes Section Notes 03/11/2025 Annual physical exam (ICD-10 - Z00.00) labs reviewed and discussed with patient 03/11/2025 Hypothyroid (ICD-10 - E03.9) pending lab testing 03/11/2025 Abdominal pain (ICD-10 - R10.9) pending diagnostic testing, US order faxed to [facility] dept 03/11/2025 Prediabetes (ICD-10 - R73.03) stable, n need for medication at this time 03/11/2025 Vitamin B12 deficiency (ICD-10 - E53.8) Stable, will continue current regiment 03/11/2025 Depression screening (ICD-10 - Z13.31) negative screen Plan Of Treatment Treatment Notes Assessment Notes Annual physical exam labs reviewed and d iscussed with patient Hypothyroid pending lab testing Abdominal pain pending diagnostic t esting, US order faxed to [facility] dept Prediabetes stable, n need for m edication at this time Vitamin B12 deficiency Stable, will cont inue current regiment Depression screening negative screen Pending Test Test Name Order Date US ABD 03/11/2025 Next Appt Details Follow Up: 4 Weeks, Reason: Provider Name:Wilfred Collado ier, 03/07/2026 07:00:00 AM, [address], [address], [place], [place], [phone], Provider Name:Wilfred Collado ier, 03/14/2026 09:30:00 AM, [address], [address], [place], [place], [phone], Progress Notes * Tiffanie KIRBY MDOB: [birth year] (60 yo F)Acc No.[id number]:03/11/2025 Progress Notes Patient: Tiffanie DOLL Provider: Cristian Chavez MD :1965 A ge:60 Y S ex:Female Date:03/11/2025 Address:[address] [place], [place] [phone] Subjective: * Chief Complaints: * A NNUAL EXAM * HPI: D epression Screening: PHQ-9 L [...] PHQ-9 found negative result, no follow-up needed. C ommunication Needs: Communication Needs D oes [...] needed? Check all that apply: N one. S ymptom(s): patient is a 60 yo female here for annual visit with review of recent labs and follow up of chronic issues. h as gnawing discomfort in epigastrum into back. tums no help.not worse when hungry. not always there. feels it once a day for an hour. * ROS: G eneral/Constitutional: Change in appetite d enies. C hills d enies. F ever d enies. O phthalmologic: Blurred vision d enies. D ischarge d enies. P ain d enies. E NT: Decreased hearing d enies. S ore throat d enies.?Swollen glands d enies. E ndocrine: Cold intolerance [...] U rinary incontinence D enies. M usculoskeletal: Painful joints d enies. W eakness d enies. ? S kin: Dry skin d enies. I [...] T obacco Use: T obacco Use/Smoking P atient is a n onsmoker, A dditional Findings: [...] N egative. M iscellaneous: C affeine: none. Children: no. Exercise: yes, 3-4 times per week strength yoga. Home smoke detector use: yes. Housing: owning. Living with: spouse. Marital status: . Occupation: works full-time [employer]. Pets: cat x1. * Medications: T akingNP Thyroid 90 MG Tablet 1 tablet on an empty stomach Orally Once a day R81-Hupnxe 5000 Tablet Chewable 1 tablet Orally once a day Taking SUBSTATION TECHNICIAN Thyroid 90 MG Tablet 1 tablet on an empty stomach Orally Once a day Taking A98-Fwlcue 5000 Tablet Chewable 1 tablet Orally once a day Not-Taking/PRNVitamin D 50 MCG (2000 UT) Tablet 1 tablet Orally Once a day Magnesium 250 MG Tablet 1 tablet with a meal Orally Once a day Medication List reviewed and reconciled with the patientNot-Taking/PRN Vitamin D 50 MCG (1999) Tablet 1 tablet Orally Once a day Not-Taking/PRN Magnesium 250 MG Tablet 1 tablet with a meal Orally Once a day Medication List reviewed and reconciled with the patient * Allergies: I buprofen: GI Upsetyes[Allergies Verified] Objective: * Vitals: H t: 66.5, Wt: 152, BMI:24.16, BP:102/60, Wt-k.95. weight is up 6 pounds since 02-28-24. * P ast Orders: L ab:Microalbumin, Random (Order Date - 03/05/2025) (Collection Date & Time - 03/05/2025 07:30 AM) Value Reference Range Creatinine Urine 136.87 - mg/dL Microalbumin Urine 22.0 - mg/L Microalbum Creatinine Ratio Ur 16.0 <30 - ug/ mg cr L ab:Complete Blood Count Auto Diff (Order Date - 03/05/2025) (Collection Date & Time - 03/05/2025 07:30 AM) Value Reference Range White Blood Count 4.4 L 4.8-10.8 - X10*3/uL Red Blood Count 3.72 L 4.20-5.50 - X10*6/uL Hemoglobin 11.9 L 12.0-16.0 - g/dl Hematocrit 36.6 L 37.0-47.0 - % Mean Corpuscular Volume 98.4 H 80.0-98.0 - fL Mean Corpuscular Hemoglobin 32.0 27.0-33.0 - pg Mean Corpuscular HGB Conc 32.5 31.0-35.0 - g/ dl Red Cell Distribution Width 12.6 11.0-16.0 - % Platelet Count 271 160-400 - X10*3/uL Mean Platelet Volume 9.7 9.4-12.3 - fL Neutrophils Percent Auto 54.7 45-73 - % Imm Gran Pct Auto 0.2 0.0-0.4 - % Lymphocytes Percent Auto 31.5 20-40 - % Monocytes Percent Auto 11.7 H 2-11 - % Eosinophils Percent Auto 1.4 0-4 - % Basophils Percent Auto 0.5 0-2 - % NRBC Pct Auto 0.0 0.0-0.2 - /100WBC Neutrophils Absolute Auto 2.4 2.0-8.3 - x10* 3/uL Imm Gran Abs Auto 0.01 0.00-0.03 - X10*3/uL Lymphocytes Absolute Auto 1.4 1.2-4.9 - X10* 3/uL Monocytes Absolute Auto 0.5 0.1-1.2 - X10*3/ uL Eosinophils Absolute Auto 0.1 0.0-0.4 - X10* 3/uL Basophils Absolute Auto 0.0 0.0-0.2 - X10*3/ uL NRBC Abs Auto 0.000 0.0-0.012 - X10*3/uL L ab:Hemoglobin A1c (Order Date - 03/05/2025) (Collection Date & Time - 03/05/2025 07:30 AM) Value Reference Range Hemoglobin A1c % 5.5 <6.0 - % Estimated Average Glucose 111 - mg/dL L ab:UA ClnCatch+Micro w/rflx Cult (Order Date - 03/05/2025) (Collection Date & Time - 03/05/2025 07:30 AM) Value Reference Range Color Urine Yellow - Appearance Urine Clear - PH 7.5 5.0-9.0 - Glucose Urine UA Negative Negative - mg/dL Urine Blood Negative Negative - Specific [place] - Urine 1.020 1.005-1.025 - Urine Protein Negative Neg-Trace - mg/dL Urine Ketones Negative Negative - mg/dL Nitrite Urine Negative Negative - Leukocyte Esterase Urine Moderate (2+) A Negative - RBC Urine 0-2 0-2 - /HPF WBC Urine 6-10 A 0-5 - /HPF Squamous Epithelial Cell Urine 3-5 0-2 - /HP F Bacteria Urine None Seen None Seen - Hyaline Casts Urine 0-2 0-2 - /LPF L ab:Comprehensive [place]. Panel Fast (Order Date - 03/05/2025) (Collection Date & Time - 03/05/2025 07:30 AM) Value Reference Range Sodium 141 135-145 - mmol/L Bilirubin Total 0.5 0.0-1.0 - mg/dL Aspartate Amino Transferase 23 5-31 - U/L Alanine Aminotransferase 14 0-31 - U/L Total Protein 6.8 6.5-8.0 - g/dL Albumin Level 4.3 3.5-5.0 - g/dL Alkaline Phosphatase 72 39-117 - U/L Potassium 4.3 3.3-5.1 - mmol/L Chloride 107 96-108 - mmol/L Carbon Dioxide 28 22-29 - mmol/L Anion Gap 10 L 12-20 - Blood Urea Nitrogen 15 9-16 - mg/dL Creatinine 0.76 0.5-1.4 - mg/dL Estimated Glomerular Filt Rate > 60 - Glucose Fasting 94 60-99 - mg/dL Calcium 9.0 8.4-10.2 - mg/dL L ab:Urine Culture (Order Date - 03/05/2025) (Collection Date & Time - 03/05/2025) Value Reference Range Urine Culture < 10,000 cfu/ml - L ab:Lipid Panel (Order Date - 03/05/2025) (Collection Date & Time - 03/05/2025 07:30 AM) Value Reference Range Triglycerides 39 <150 - mg/dL Cholesterol 198 <200 - mg/dL LDL Cholesterol Calculated 112 H <100 - mg/dL HDL Cholesterol 79 >40 - mg/dL L ab:Vitamin B12 and Folate (Order Date - 03/05/2025) (Collection Date & Time - 03/05/2025 07:30 AM) Value Reference Range Vitamin B12 > 2000 H 200-900 - pg/mL Folate 11.1 > or = 4.0 - ng/mL * Examination: G eneral Examination: GENERAL APPEARANCE: w ell developed, well nourished, in no acute distress. HEAD: n ormocephalic, atraumatic. EYES: p upils equal, round, reactive to light and accommodation, sclera non-icteric. EARS: n ormal. ORAL CAVITY: m ucosa moist. THROAT: c lear. NECK/THYROID: n melissa supple, full range of motion, no cervical lymphadenopathy, no bruits. SKIN: w arm and dry, no suspicious lesions. HEART: r egular rate and rhythm, S1, S2 normal, no murmurs.? LUNGS: c lear to auscultation bilaterally. BREASTS: N o mass, no lump. ABDOMEN: s oft, nontender, nondistended, bowel sounds present, normal, no organomegaly , no masses palpable. RECTAL EXAM: d one by railroad engineer. FEMALE GENITOURINARY: d one by railroad engineer. EXTREMITIES: n o clubbing, cyanosis, or edema. NEUROLOGIC: n onfocal, motor strength normal upper and lower extremities, sensory exam intact. Assessment: * Assessment: 1. A nnual physical exam - Z00.00 (Primary) 2 . H ypothyroid - E03.9 ? 3 . A bdominal pain - R10.9 4 . P rediabetes - R73.03 ?5. V itamin B12 deficiency - E53.8 6 . D epression screening - Z13.31? Plan: * Treatment: 2. H ypothyroid Notes: pending lab testing 3. A bdominal pain I maging: US ABD Notes: pending diagnostic testing, US order faxed to [facility] dept 4. P rediabetes Notes: stable, n need for medication at this time 5. V itamin B12 deficiency Notes: Stable, will continue current regiment 6. D epression screening Notes: negative screen * Procedure Codes: 3 6415 VENIPUNCT, ROUTINE* * Follow Up: 4 Weeks * * Sign off status: Completed true * Provider: Cristian Chavez MD Date: 0 03/11/2025 Generated for tOto moffett/Shanon/eTransmitting on: 1 08/18/2024 03:57 PM EST History and Physical Notes * HPI (History of Present Illness) Category Sub-Category Detail Notes Category Not es Symptom(s) patient is a 60 yo female here for annual visit with review of recent labs and follow up of chronic issues. has gnawing discomfort in epigastrum into back. tums no help.not worse when hungry. not always there. feels it once a day for an hour. Depression Screening PHQ-9 Little inte rest or pleasure in doing things: Not at all Feeling down, depressed, or hopeless: No t [...] sensory exam intact SKIN: warm and dry, no marie picious lesions EXTREMITIES: no clubbing, cyanosi s, or edema BREASTS: No mass, no lump RECTAL EXAM: done by railroad engineer FEMALE GENITOURINARY: done by railroad engineer ORAL CAVITY: mucosa moist
--- OUTSIDE RECORDS SUMMARY | 2025-03-16 04:37 | XMS_ITS ---
Author Organization Wilfred Chavez MD Address [address] [place] [address] [place] [phone] Care Team Providers Care Interactive Digital Media Specialist Name Role Phone Wilfred Chavez Primary Care Provider [phone] REASON FOR VISIT sooner US appt ? Encounters Encounter Location Date Provider Diagnosis Wilfred Chavez MD [address] [place] [address] [address] [place] [phone] 03/16/2025 Wilfred Chavez Plan Of Treatment Next Appt Details Provider Name:Wilfred Collado ier, 03/07/2026 07:00:00 AM, [address] [place] [address], [place] [address], [place], [place], [phone], Provider Name:Wilfred Collado ier, 03/14/2026 09:30:00 AM, [address] [place] [address], [place] [address], [place], [place], [phone], Progress Notes * Tiffanie KIRBY MDOB: [birth year] (60 yo F)Acc No.[id number]:03/16/2025 Patient: Tiffanie DOLL :1965 A ge:60 Y S ex:Female Address:[address] [place] [id number] * true * Date: Generated for Printi ng/Faxing/eTransmitting on: 08/18/2024 04:01 PM EST
--- OUTSIDE RECORDS SUMMARY | 2025-04-19 04:00 | XMS_ITS ---
Author Organization Wilfred Chavez MD Address [address] [place] [phone] Care Team Providers Care Operations Tech Name Role Phone Wilfred Chavez Primary Care [...] Once a day for 30 day(s) Not-Taking FRONT OFFICE REPRESENTATIVE Thyroid 90 MG 1 tablet on an empty stomach Orally Once a day for 30 day(s) Active L42-Gkketl 5000 1 tablet Orally once a day Active Immunizations Vaccine Route Administration Date Status Comme nts Fluarix Quadrivalent - 150 Unknown 04/19/2025 Refused Problems Problem Type SNOMED Code ICD Code Onset Dates Problem Status W/U Status Risk Notes Problem Peptic ulcer (55937560) Peptic ulcer (K27.9) Active confirmed Vital Signs Blood pressure systolic 112 mm Hg 04/19/20 25 Blood pressure diastolic 60 mm Hg 025 Height 66.5 in 04/19/2025 Weight 156 lbs 04/19/2025 BMI 24.8 kg/m2 04/19/2025 weight is up 4 pounds since 03-11-25 Encounters Encounter Location Date Provider Diagnosis Wilfred Chavez MD [address] [place] [phone] 04/19/2025 Wilfred Chavez Peptic ulcer K27.9 and [...] Up: 4 Weeks, Reason: Provider Name:Wilfred duenas, 03/07/2026 07:00:00 AM, [address] [place] [address], [address], [phone], Provider Name:Wilfred duenas, 03/14/2026 09:30:00 AM, [address] [place] [address], [place] [address], [place], [place], [phone], Progress Notes * Tiffanie KIRBY MDOB: [birth year] (60 yo F)Acc No.[id number]:04/19/2025 Progress Notes Patient: Tiffanie DOLL Provider: Cristian Chavez MD :1965 A ge:60 Y S ex:Female Date:04/19/2025 Address:[address] [place], [place] [phone] Subjective: * Chief Complaints: * 4 week [...] an empty stomach Orally Once a day Q37-Hiizpt 5000 Tablet Chewable 1 tablet Orally once a day Taking FRONT OFFICE REPRESENTATIVE Thyroid 90 MG Tablet 1 tablet on an empty stomach Orally Once a day Taking T76-Fkkkxx 5000 Tablet Chewable 1 tablet Orally once a day Not-Taking/PRNVitamin D 50 MCG (1999 UT) Tablet 1 [...] Procedure Codes: * Preventive Medicine: Immunizations: I nfluenza H ave you had a flu shot since the most recent March 29? N o patient refused at visit today. * Follow Up: 4 Weeks * * Sign off status: Completed true * Provider: Cristian Chavez MD Date: 0 04/19/2025 Generated for Otto moffett/Shanon/eTransmitting on: 08/18/2024 04:01 PM EST History and Physical Notes * [...]
--- OUTSIDE RECORDS SUMMARY | 2025-05-14 08:45 | XMS_ITS ---
Author Organization Wilfred Chavez MD Address [address] [place] [phone] Care Team Providers Care Custodial Manager Name Role Phone Wilfred Chavez Primary Care [...] Once a day for 30 day(s) Not-Taking D04-Zdqogo 5000 1 tablet Orally once a day Active Magnesium 250 MG 1 tablet with a meal Orally Once a day for 30 day(s) Not-Taking Hyoscyamine Sulfate 0.125 MG 1 tablet as needed Orally twice a day for 30 days 05/14/2025 Active SOLDER LEVELER PRINTED CIRCUIT BOARDS Thyroid 90 MG 1 tablet on an empty stomach Orally Once a day for 30 day(s) Active Problems Problem Type SNOMED Code ICD Code Onset Dates Problem Status W/U Status Risk Notes Problem Irritable bowel (99379157) Irritable bowel (K58.9) Active confirmed Vital Signs Blood pressure systolic 140 mm Hg 05/14/20 25 Blood pressure diastolic 74 mm Hg 025 Height 66.5 in 05/14/2025 Weight 155 lbs 05/14/2025 BMI 24.64 kg/m2 05/14/2025 Encounters Encounter Location Date Provider Diagnosis Wilfred Chavez MD [address] [place] [phone] 05/14/2025 Wilfred Bombardier Irritable bowel K58.9 Assessments [...] Follow Up: 4 Weeks, Reason: Provider Name:Wilfred Banks Gopalarnold ier, 03/07/2026 07:00:00 AM, [address] [place] [address], [address], [phone], Provider Name:Wilfred Collado yulissa, 03/14/2026 09:30:00 AM, [address] [place] [address], [place] [address], [place], [place], [phone], Progress Notes * Tiffanie KIRBY MDOB: [birth year] (60 yo F)Acc No.[id number]:05/14/2025 Patient: Dada Tiffanie CARTER Provider: Cristian Chavez MD :1965 A ge:60 Y S ex:Female Date:05/14/2025 Address:[address] [place] [address] Subjective: * Chief Complaints: * m ust [...] an empty stomach Orally Once a day N46-Skikbt 5000 Tablet Chewable 1 tablet Orally once a day Taking SOLDER LEVELER PRINTED CIRCUIT BOARDS Thyroid 90 MG Tablet 1 tablet on an empty stomach Orally Once a day Taking Y26-Yvgeiz 5000 Tablet Chewable 1 tablet Orally once [...] MD Date: Generated for Otto moffett/Shanon/Jaisonitting on: 1 08/18/2024 03:58 PM EST History and Physical [...]
--- OUTSIDE RECORDS SUMMARY | 2025-05-27 09:30 | XMS_ITS ---
Author Organization [facility] Address [address] [place] [address] Care Team Providers Care Block Hacker Name Role Phone Wilfred Chavez MD Primary Care Provider Ricardo Wilson [phone] REASON FOR VISIT LUQ pain Encounters Encounter Location Date Provider Diagnosis [facility] [place] Outpatient [address] [place] [phone] 05/27/2025 Ricardo Hagen Plan Of Treatment No Information Progress Notes * GARTH PARRISHOB: 3 (60 yo F)Acc No.[id number]:05/27/2025 EGD/MAC Patient: HARVINDER DOLL Provider: Mariama Hagen MD :1965 A ge:60 Y S ex:Female Date:05/27/2025 Address:[address] [place] [address] Pcp:Wilfred Chavez MD Subjective: * Chief Complaints: * L UQ pain Billing Information: * Procedure Codes: * The named appointment provid er may or may not be the originator of this progress note, and it is not deemed complete until electronically signed by the appointment provider. Sign off status: Pending * Provider: Mariama Hagen MD Date: Generated for Printi ng/Faxing/eTransmitting on: 08/18/2024 03:58 PM EST
--- OUTSIDE RECORDS SUMMARY | 2025-06-18 09:15 | XMS_ITS ---
Author Organization Wilfred Chavez MD Address [address] [place] [phone] Care Team Providers Care Animal Shelter Clerk Name Role Phone Wilfred Chavez Primary Care [...] Once a day for 30 day(s) Not-Taking Z24-Obfurf 5000 1 tablet Orally once a day Active Hyoscyamine Sulfate 0.125 MG 1 tablet as needed Orally twice a day for 30 days 05/14/2025 Not-Taking Hyoscyamine Sulfate ER 0.375 MG 1 tablet Orally once a day for 30 days 06/18/2025 Active KINDERGARTEN TEACHER ASSISTANT Thyroid 90 MG 1 tablet on an empty stomach Orally Once a day for 30 day(s) Active Magnesium 250 MG 1 tablet with a meal Orally Once a day for 30 day(s) Not-Taking Vital Signs Blood pressure systolic 144 mm Hg 06/18/20 25 Blood pressure diastolic 66 mm Hg 025 Height 66.5 in 06/18/2025 Weight 154 lbs 06/18/2025 BMI 24.48 kg/m2 06/18/2025 Encounters Encounter Location Date Provider Diagnosis Wilfred Chavez MD [address] [place] [phone] 06/18/2025 Wilfred Chavez UTI (urinary tract infection) N39.0 and Irritable bowel K58.9 Assessments Encounter Date Diagnosis (ICD Code) Assessment Notes Treatment Notes Treatment Clinical Notes Section Notes 06/18/2025 UTI (urinary tract infection) (ICD-10 - N39.0) pending lab 06/18/2025 Irritable bowel (ICD-10 - K58.9) patient verbalized understandng of medication and directions for use Plan Of Treatment Medication Medication Name Sig Start Date Stop Date Notes Hyoscyamine Sulfate ER 0.375 MG 1 tablet Orally once a day for 30 days 06/18/2025 Treatment Notes Assessment Notes UTI (urinary tract infection) pending la b Irritable bowel patient verbalized u nderstandng of medication and directions for use Pending Test Test Name Order Date UA ClnCatch+Micro w/rflx Cult 06/18/2025 Next Appt Details Provider Name:Wilfred Collado ier, 03/07/2026 07:00:00 AM, [address] [place] [address], [address], [phone], Provider Name:Wilfred Collado ier, 03/14/2026 09:30:00 AM, [address] [place] [address], [place] [address], [place], [place], [phone], Progress Notes * Tiffanie KIRBY MDOB: [birth year] (60 yo F)Acc No.[id number]:06/18/2025 Progress Notes Patient: Tiffanie DOLL Provider: Cristian Chavez MD :1965 A ge:60 Y S ex:Female Date:06/18/2025 Address:[address] [place], [place] [id number] Subjective: * Chief Complaints: * 1 . 4 week. * HPI: S ymptom(s): patient is a 60 yo female here for 4 week follow up visit/ just took medicine when idt was bothering her. * ROS: G eneral/Constitutional: Denies C hills. D enies F atigue. D enies F ever. D enies H eadache. E NT: Denies S ore throat. R espiratory: Denies C ough. D enies S hortness of breath at rest. D enies S hortness of breath with exertion. G astrointestinal: Denies D iarrhea. D enies N ausea. G enitourinary: Admits A bdominal pain/swelling. D enies B lood in urine. D enies D ifficulty urinating. A dmits F requent urination. A dmits P ain in lower back. D enies P ainful urination. * Medical History: Colonoscopy - repeat in 10 years going to do cologard, 07/2015 Pap Smear w/ Dr.Lisa [place] [facility]AUGER ([phone]). * Medications: T aking KINDERGARTEN TEACHER ASSISTANT Thyroid 90 MG Tablet 1 tablet on an empty stomach Orally Once a day , Taking S09-Mdbvgy 5000 Tablet Chewable 1 tablet Orally once a day , Not-Taking/PRN Hyoscyamine Sulfate 0.125 MG Tablet 1 tablet as needed Orally twice a day , Not-Taking/PRN Vitamin D 50 MCG (2000 UT) Tablet 1 tablet Orally Once a day , Not-Taking/PRN Magnesium 250 MG Tablet 1 tablet with a meal Orally Once a day , Medication List reviewed and reconciled with the patient * Allergies: I buprofen: GI Upset. Objective: * Vitals: H t: 66.5, Wt: 154, BMI:24.48, BP:144/66, Repeat BP:120/65, Wt-k.85. Assessment: * Assessment: 1. I rritable bowel - K58.9 (Primary) 2 . U TI (urinary tract infection) - N39.0 Plan: * Treatment: 2. U TI (urinary tract infection) L AB: UA ClnCatch+Micro w/rflx Cult Notes: pending lab * * The named appointment provid er may or may not be the originator of this progress note, and it is not deemed complete until electronically signed by the appointment provider. Sign off status: Pending * Provider: Cristian Chavez MD Date: 08/18/2024 Generated for Otto moffett/Shanon/Geovanny on: 08/18/2024 03:58 PM EST History and Physical Notes * HPI (History of Present Illness) Category Sub-Category Detail Notes Category Not es Symptom(s) patient is a 60 yo female here for 4 week follow up visit/ just took medicine when idt was bothering her.
--- OUTSIDE RECORDS SUMMARY | 2025-06-18 15:57 | XMS_ITS | Clinical Summary ---
Author Organization [facility] Address [address] [place] [phone] Phone Care Team Providers Care Papier Mache' Molder Name Role Phone Wilfred Chavez MD Primary Care Provider Allergies Active Allergy Reactions Criticality Noted Date Comments Ibuprofen 07/26/2016 Other reaction(s): gastric issues Medications magnesium sulfate 100 mg Cap 1 capsule with food Orally Four times a day Active cyanocobalamin, vitamin B-12, 5,000 mcg Subl 1 tablet under the tongue and allow to dissolve Sublingual Once a day Active GRINDER OPERATOR AUTOMATIC THYROID 15 mg Tab TAKE 1 TABLET BY MOUTH EVERY DAY WITH 60MG TABLET 4 8 Active GRINDER OPERATOR AUTOMATIC THYROID 60 mg Tab TAKE 1 TABLET BY MOUTH EVERY MORNING WITH 15MG TABLET 4 8 Active benzonatate (TESSALON) 100 MG capsule Take 1 capsule (100 mg total) by mouth 3 (three) times a day as needed for cough. 20 capsule 2 Active Active Problems Problem Noted Date Diagnosed Date Disorder of thyroid 10/22/2021 Encounters Date Type Department Care Team Description 06/04/2025 2:21 PM EST - 06/04/2025 11:59 PM EST Hospital Encounter [address] [address] Wilfred Chavez MD Discharge Disposition: Home or Self Care 04/09/2025 8:56 AM EDT - 04/09/2025 11:59 PM EDT Hospital Encounter [address] [address] Pierce Barton MD Discharge Disposition: Home or Self Care 04/09/2025 Transcribe Orders [facility] [address] [address] Pierce Barton MD Other specified hypothyroidism (Primary Dx); Other specified disorders of bone density and structure, multiple sites 10/08/2024 Procedure Pass [facility] [address] [place] [address] from Last 3 Months Immunizations Immunization Administration [...] 07/26/2022 2:08 PM EST Plan of Treatment Health Maintenance Due Date Last Done Comments [...] 09/01/2015 INFLUENZA VACCINE (#1) 2025 COVID-19 VACCINE ( season) 2025 07/31/2021, 11/03/2020, 11/03/2020 MAMMOGRAM 06/04/2027 06/04/2025, 05/0 09/2023, 10/31/2022, Additional history exists RSV VACCINE (1 - 1-dose 75+ series) 2038 SMOKING STATUS SCREENING (Once After 26 Yrs) Completed 12/26/2023 HEPATITIS A VACCINES Aged Out No long er eligible based on patient's age to complete this topic HIB VACCINES Aged Out No longer eligi ble based on patient's age to complete this topic IPV VACCINES Aged Out No longer eligi ble [...] SCREENING WITH TOMOSYNTHESIS WITH CAD (BILATERAL) Routine 06/04/2025 2:46 PM EST Breast screening IONIZED CALCIUM Routine 04/09/2025 9:00 AM EDT [...] and structure, multiple sites TESTOSTERONE, TOTAL AND FREE, EQUILIBRIUM DIALYSIS/MASS SPECTROMETRY Routine 04/09/2025 9:00 AM EDT Other specified hypothyroidism Other specified disorders of bone density and structure, multiple sites THYROID STIMULATING HORMONE (TSH) Routine 04/09/2025 9:00 AM EDT Other specified hypothyroidism 25-OH VITAMIN D Routine 04/09/2025 9:00 AM EDT Other specified hypothyroidism Other specified disorders of bone density and structure, multiple sites from Last 3 Months Results * BI MAMMOGRAM SCREENING WITH TOMOSYNTHESIS WITH CAD (BILATERAL) (06/04/2025 2:46 PM EST) Anatomical Region Laterality Modality Breast Left, Breast Right, Breast Bilateral Bila teral Mammography 06/07/2025 9:22 AM EST Impressions 06/07/2025 9:24 AM EST No mammographic evidence of malignancy in either breast. Annual screening mammography is recommended. BI-RADS 2 BENIGN The patient will be notified of the results and recommendations. Narrative 06/07/2025 9:24 AM EST BI MAMMOGRAM SCREENING WITH TOMOSYNTHESIS WITH CAD (BILATERAL) Additional patient information: Screening. COMPARISON: Comparison is made with relevant prior imaging. Breast composition: The breasts are heterogeneously dense, which may obscure small masses. FINDINGS: There has been no change in the mammographic findings since previous examination. No abnormal masses, suspicious calcifications, or other significant findings are identified mammographically in either breast. Procedure Note Monty Tovar MD - 06/07/2025 BI MAMMOGRAM SCREENING WITH TOMOSYNTHESIS WITH CAD (BILATERAL) Additional patient information: Screening. COMPARISON: Comparison is made with relevant prior imaging. Breast composition: The breasts are heterogeneously dense, which mayobscure small masses. FINDINGS: There has been no change in the mammographic findings since previousexamination. No abnormal masses, suspicious calcifications, or other significantfindings are identified mammographically in either breast. IMPRESSION: No mammographic evidence of malignancy in either breast. Annual screening mammography is recommended. BI-RADS 2 BENIGN The patient will be notified of the results and recommendations. us Wilfred Chavez MD IMG MG EXAMS Final R esult * RBC magnesium (04/09/2025 9:00 AM EDT) RBC Magnesium 5.3 4.0 - 6.4 mg/dL [employer] [facility] Comment: (NOTE) This test was developed and its analytical performance characteristics have been determined by [employer]. It has not been cleared or approved by the U.S. Food and Drug Administration. This assay has been validated pursuant to the CLIA regulations and is used for clinical purposes. Blood 04/09/2025 9:00 AM EDT 04/09/2025 9:06 AM EDT us Pierce Barton MD LAB BLOOD ORDERABLES Final Res ult Performing Organization Address [facility] Co de Phone Number [employer] [facility] [address] [place], [place] * Testosterone, total and free (04/09/2025 9:00 AM EDT) FREE TESTOSTERONE 0.35 <0.13 - 0.87 ng/dL [facility] Comment: (NOTE) ADDITIONAL INFORMATION This test was developed and its performance characteristics determined by [facility] in a manner consistent with CLIA requirements. This test has not been cleared or approved by the U.S. Food and Drug Administration. TESTOSTERONE, TOTAL 20 8 - 60 ng/dL [facility] Comment: (NOTE) ADDITIONAL INFORMATION Testing performed by Liquid Chromatography-Tandem Mass Spectrometry (LC-MS/MS). This test was developed and its performance characteristics determined by [facility] in a manner consistent with CLIA requirements. This test has not been cleared or approved by the U.S. Food and Drug Administration. Blood 04/09/2025 9:00 AM EDT 04/09/2025 9:06 AM EDT us Pierce Barton MD LAB BLOOD BKR ORDERABLES Final Result Performing Organization Address [facility]/ZIP Co de Phone Number [facility] [address] [place] [address] * DHEA-SULFATE (04/09/2025 9:00 AM EDT) Pathologist [facility] DHEAS 115 9.7 - 159 mcg/dL [facility] Blood 04/09/2025 9:00 AM EDT 04/09/2025 9:06 AM EDT us Pierce Barton MD LAB BLOOD ORDERABLES Final Res ult [facility] [address] [place] [address] * Progesterone (04/09/2025 9:00 AM EDT) [facility] PROGESTERONE 0.22 ng/mL [facility] Comment: FEMALE: Follicular: 0.057 - 0.893 ng/ml Luteal: 1.83 - 23.9 ng/ml Blood 04/09/2025 9:00 AM EDT 04/09/2025 9:06 AM EDT us Pierce Barton MD LAB BLOOD BKR ORDERABLES Final Result Performing Organization Address [facility] Co de Phone Number [address] [address] * (ABNORMAL) 25-OH vitamin D (04/09/2025 9:00 AM EDT) [facility] 25 OH VIT D (TOTAL) 26(L) 30 - 60 ng/mL [facility] Blood 04/09/2025 9:00 AM EDT 04/09/2025 9:06 AM EDT us Pierce Barton MD LAB BLOOD BKR ORDERABLES Final Result Performing Organization Address City/[facility] Co de Phone Number [address] [address] * Estradiol (04/09/2025 9:00 AM EDT) [facility] ESTRADIOL 8 pg/mL [facility] Comment: FEMALE: Follicular: Less than 12 to 233 pg/ml Midcycle: 41 - 398 pg/ml Luteal: 22 - 341 pg/ml Postmenopausal: less than 5 - 138 pg/ml Blood 04/09/2025 9:00 AM EDT 04/09/2025 9:06 AM EDT us Pierce Barton MD LAB BLOOD BKR ORDERABLES Final Result [address] [address] * Free T3 (04/09/2025 9:00 AM EDT) FREE T3 2.5 2.0 - 4.4 pg/mL [facility] Blood 04/09/2025 9:00 AM EDT 04/09/2025 9:06 AM EDT us Pierce Barton MD LAB BLOOD BKR ORDERABLES Final Result Performing Organization Address [facility] Co de Phone Number [address] [address] * (ABNORMAL) TSH (04/09/2025 9:00 AM EDT) TSH 0.21(L) 0.27 - 4.20 uIU/mL [facility] Blood 04/09/2025 9:00 AM EDT 04/09/2025 9:06 AM EDT us Pierce Barton MD LAB BLOOD BKR ORDERABLES Final Result Performing Organization Address City/[facility] Co de Phone Number [address] [address] * Free T4 (04/09/2025 9:00 AM EDT) FREE T4 0.9 0.9 - 1.7 ng/dL [facility] Blood 04/09/2025 9:00 AM EDT 04/09/2025 9:06 AM EDT us Pierce Barton MD LAB BLOOD BKR ORDERABLES Final Result Performing Organization Address City/[facility]/ZIP Co de Phone Number [address] [address] * Ionized calcium (04/09/2025 9:00 AM EDT) IONIZED CALCIUM 1.22 1.14 - 1.37 mmol/L [facility] Blood 04/09/2025 9:00 AM EDT 04/09/2025 9:07 AM EDT us Pierce Barton MD LAB BLOOD BKR ORDERABLES Final Result Performing Organization Address City/[facility]/ZIP Co de Phone Number [address] [address] from Last 3 Months Insurance S [employer] [address] [place], [place] [id number] PPO [employer] PPO [employer] Care Teams Papier Mache' Molder Relationship Specialty Start Date End Date Wilfred Chavez MD [address] [place] [address] [place] [id number] PCP - General 08/01/17 Additional Source Comments The information contained in this document represents components of the legal health record. It is not the complete legal health record.[facility]
--- OUTSIDE RECORDS SUMMARY | 2025-06-18 15:58 | XMS_ITS | Encounter Summary ---
Author Organization [facility] Address [address] [place] [address] [place] [address] Phone Care Team Providers Care Construction Driller Name Role Phone Wilfred Chavez MD Primary Care Provider Encounter Details Date Type Department Care Team (Late st Contact Info) Description 10/22/2017 Ancillary Orders Virtual Department [address] [place] [address] Wilfred Chvaez MD [address] [place] [address] [place] [address] Breast screening Social History Tobacco Use Types Packs/Day Years Used Date Smoking Tobacco: Never Assessed Comments Unknown Sex and Gender Information Value Date Recorded Sex Assigned at Not on file Legal Sex Female 9:44 PM EDT Gender Identity Not on file Sexual Orientation Not on file documented as of this encounter Plan of Treatment Not on file documented as of this encounter Results * [...] and compared with multiple prior studies, most [id number]/16/2017, with utilization of computer-aided detection. The breast [...] a lesion on mammography. POS - [id number] us Wilfred Chavez MD IMG MG EXAMS [...] documented as of this encounter Care Teams Construction Driller Relationship Specialty Start Date End Date Wilfred Chavez MD [address] [place] [address] [place] [address] PCP - General 08/01/17 documented as of this encounter Additional Source Comments The information contained in this document represents components of the legal health record. It is not the complete legal health record.[facility]
--- OUTSIDE RECORDS SUMMARY | 2025-06-18 15:58 | XMS_ITS | Encounter Summary ---
Author Organization [facility] Address [address] [place] [address] Phone Care Team Providers Care Software Writer Name Role Phone Wilfred Chavez MD Primary Care Provider Encounter Details Date Type Department Care Team (Late st Contact Info) Description 10/08/2024 Transcribe Orders Virtual Department [address] [place] [address] Wilfred Chavez MD [address] [place] [address] [place] [address] Breast screening (Primary Dx) Social History Tobacco [...] unspecified documented in this encounter Care Teams Software Writer Relationship Specialty Start Date End Date Wilfred Chavez MD [address] [place] [address] Dr MURRELL [address] [place] [address] PCP - General 08/01/17 documented as of this encounter Additional Source Comments The information contained in this document represents components of the legal health record. It is not the complete legal health record.[facility]
--- OUTSIDE RECORDS SUMMARY | 2025-06-18 15:58 | XMS_ITS | Patient Health Record ---
Author Organization [facility] Address [address] [place] [phone] Care Team Providers Care Lipstick Molder Name Role Phone Wilfred Chavez MD Primary Care Provider Ricardo Wilson [phone] Allergies No Known Allergies Results Component Value Reference Range Notes Pathology (Not yet reviewed by provider) Interpretation: Performing Lab:[facility], [address] [place] [phone] Notes/Report: Reason For Referral No Information Medications Medication SIG (Take, Route, Frequency, Duration) Notes Start Date End Date Status [place] Thyroid 90 MG Tablet 1 tablet on an empty stomach Orally Once a day Active Immunizations Vaccine Route Administration Date Status Comme nts Influenza Unknown 05/04/2025 Refused Social History Social History Drug/Alcohol: Social Info Question Answer Notes AUDIT-C (Standard) Did you have a drink containing alcohol in the past year? Yes How often did you have a drink containing alcohol in the past year? Monthly or less (1 point) How many drinks did you have on a typical day when you were drinking in the past year? 1 or 2 drinks (0 point) How often did you have six or more drinks on one occasion in the past year? Never (0 point) Points 1 Interpretation Negative Additional Details Category Social Info Options Details Miscellaneous: Marital status: Occupation: [employer] Section Notes: Nonsmoker; 3-4 glasses of wi ne per week Nonsmoker; 3-4 glasses of wi ne per week Problems Problem Type SNOMED Code ICD Code Onset Dates Problem Status W/U Status Risk Notes Problem Epigastric pain (49766476) Abdominal pain, epigastric (789.06) Active confirmed Problem Colon cancer screening (545787791) Colon cancer screening (V76.51) Active confirmed Problem Colon cancer screening (230380966) Colon cancer screening (Z12.11) Active confirmed Problem Anemia (118861189) Anemia (D64.9) Active confirmed Problem Left upper quadrant pain (487731758) LUQ abdominal pain (R10.12) Active confirmed Vital Signs Temperature 91 degrees Fahrenheit 05/04/2025 Blood pressure diastolic 01 mm Hg 05/04/2025 Height 67.5 in 05/04/2025 Blood pressure systolic 001 mm Hg 05/04/2025 Weight 151.8 lbs 05/04/2025 BMI 23.42 kg/m2 05/04/2025 Procedures Procedure Date Ordered Date Performed Result Body Sit e UPPER GI ENDOSCOPY 05/04/2025 N/A Encounters Encounter Location Date Provider Diagnosis [facility] Outpatient [address] [place] [phone] 05/27/2025 Ricardo Hagen [facility] [address] [place] [address] 05/04/2025 Ricardo Hagen LUQ abdominal pain R10.12 [...] was diagnosed by a physician at the [facility] but was not given an etiology of [...] was diagnosed by a physician at the [facility] but was not given an etiology of [...] was diagnosed by a physician at the [facility] but was not given an etiology of [...] 05/04/2025 CBC w DIFF 02/25/2013 Ferritin 05/04/2025 Pathology 05/27/2025 Future Test Test Name Order Date UPPER GI ENDOSCOPY 02/25/2013 COLONOSCOPY 02/25/2013 Insurance Providers Payer Name Payer Address Payer Phone Subscriber Number Group Number Insured Name Patient Relationship to Insured Coverage Start Date Coverage End Date [facility] [address] [place] [phone] [id number] HARVINDER PARRISH Self - patient is the insured 4 Medical (General) History Medical History History ICD Code EGD in 08/2010- gastritis wit h H.pylori-Rx'd with 10 days of Omeprazole, Biaxin, and Amoxicillen- gave her good relief at the time Denies MS,DM,CVA,Lung disease,renal dise ase U/S in 06/2010 with gallbladder polyps -no stones Neg. Cologuard 2024 Negative screening colonoscopy in 2012 EGD 2012 minimal HH, WNL, bx neg H.pylor i Hypothyroidism
--- OUTSIDE RECORDS SUMMARY | 2025-06-18 15:58 | XMS_ITS | Encounter Summary ---
Author Organization [facility] Address [address] [facility] [address] [place] [address] Phone Care Team Providers Care Buildings And Grounds Supervisor Name Role Phone Wilfred Chavez MD Primary Care Provider Encounter Details Date Type Department Care Team (Late st Contact Info) Description 10/10/2022 Procedure Pass [address] [address] Social History Tobacco Use Types Packs/Day Years Used Date Smoking Tobacco: Never Smokeless Tobacco: Never Comments No Sex and Gender Information Value Date Recorded Sex Assigned at Not on file Legal Sex Female 9:44 PM EDT Gender Identity Not on file Sexual Orientation Not on file documented as of this encounter Plan of Treatment Not on file documented as of this encounter Visit Diagnoses Not on filedocumented in this encounter Care Teams Buildings And Grounds Supervisor Relationship Specialty Start Date End Date Wilfred Chavez MD [address] [place] [address] [place] [address] PCP - General 08/01/17 documented as of this encounter Additional Source Comments The information contained in this document represents components of the legal health record. It is not the complete legal health record.[facility]
--- OUTSIDE RECORDS SUMMARY | 2025-06-18 15:58 | XMS_ITS | Encounter Summary ---
Author Organization [facility] Address [address] [place] [address] Phone Care Team Providers Care Senior Graphic Designer Name Role Phone Wilfred Chavez MD Primary Care Provider Encounter Details Date Type Department Care Team (Late st Contact Info) Description 10/08/2024 Procedure Pass [facility], [address] [address] Social History Tobacco Use Types Packs/Day Years [...] on filedocumented in this encounter Care Teams Senior Graphic Designer Relationship Specialty Start Date End Date Wilfred Chavez MD [address] [place] [address] [place] [address] PCP - General 08/01/17 documented as of this encounter Additional Source Comments The information contained in this document represents components of the legal health record. It is not the complete legal health record.[facility]
--- OUTSIDE RECORDS SUMMARY | 2025-06-18 15:58 | XMS_ITS | Encounter Summary ---
Author Organization [facility] Address [address] [place] [address] Phone Care Team Providers Care Wrapper Leaf Inspector Name Role Phone Wilfred Chavez MD Primary Care Provider Encounter Details Date Type Department Care Team (Late st Contact Info) Description 05/01/2021 Procedure Pass [address] [address] Social History Tobacco Use Types Packs/Day Years [...] documented as of this encounter Care Teams Wrapper Leaf Inspector Relationship Specialty Start Date End Date Wilfred Chavez MD [address] [place] [address] [place] [address] PCP - General 08/01/17 documented as of this encounter Additional Source Comments The information contained in this document represents components of the legal health record. It is not the complete legal health record.[facility]
--- OUTSIDE RECORDS SUMMARY | 2025-06-18 15:58 | XMS_ITS | Encounter Summary ---
Author Organization [facility] Address [address] [place] [address] Phone Care Team Providers Care Medical Dermatologist Name Role Phone Wilfred Chavez MD Primary Care Provider Encounter Details Date Type Department Care Team (Late st Contact Info) Description 09/29/2018 Ancillary Orders Virtual Department [address] [place] [address] Wilfred Chavez MD [address] [place] [address] [place] [address] Breast screening Social History Tobacco Use Types [...] couldobscure a lesion on mammography. POS [id number] us Wilfred Chavez MD IMG MG [...] documented as of this encounter Care Teams Medical Dermatologist Relationship Specialty Start Date End Date Wilfred Chavez MD [address] [place] [address] [place] [address] PCP - General 08/01/17 documented as of this encounter Additional Source Comments The information contained in this document represents components of the legal health record. It is not the complete legal health record.[facility]
--- OUTSIDE RECORDS SUMMARY | 2025-06-18 15:58 | XMS_ITS | Patient Health Record ---
Author Organization Wilfred Chavez MD Address [address] [place], [place] [address] Care Team Providers Care Branch Director Name Role Phone Wilfred Chavez Primary Care Provider Allergies Allergen (clinical drug ingredient) Drug/Non Drug Allergy documented on EMR Reaction Allergy Type Onset Date Status ibuprofen Ibuprofen GI Upset Drug Allergy Active Results Component Value Reference Range Notes Complete Blood Count Auto Di ff Reviewed date:03/05/2025 04:53:50 PM Interpretation: Performing Lab:[facility], [address] [place] [address] Notes/Report: White Blood Count 4.4 4.8-10.8 X10*3/uL [...] 0.0-0.2 /100WBC Neutrophils Absolute Auto 2.4 2.0-8.3 x10*3/uL Imm Gran Abs Auto 0.01 0.00-0.03 X10*3/uL Lymphocytes Absolute Auto 1.4 1.2-4.9 X10*3/uL Monocytes Absolute Auto 0.5 0.1-1.2 X10*3/uL Eosinophils Absolute Auto 0.1 0.0-0.4 X10*3/uL Basophils Absolute Auto 0.0 0.0-0.2 X10*3/uL NRBC Abs Auto 0.000 0.0-0.012 X10*3/uL Comprehensive Mcclure. Panel Fa st Reviewed date:03/05/2025 04:52:52 PM Interpretation: Performing Lab:[address] [address] Notes/Report: Sodium 141 135-145 mmol/L Potassium 4.3 [...] Panel Reviewed date:03/05/2025 04:54:00 PM Interpretation: Performing Lab:[address] [address] Notes/Report: Triglycerides 39 <150 mg/dL Desirable Triglyceride: [...] Folate Reviewed date:03/05/2025 04:53:10 PM Interpretation: Performing Lab:[address] [address] Notes/Report: Vitamin B12 > 2000 200-900 pg/mL NORMAL 200-900 PG/ML INDETERMINATE 160-199 PG/ML DEFICIENT < 160 PG/ML Folate 11.1 > or = 4.0 ng/mL Reference Values: > or = 4.0 ng/mL < 4.0 ng/mL suggests folate deficiency Methotrexate, aminopterin and folinic acid (leucovorin) are chemotherapeutic agents whose molecular structures are similar to folate; therefore, the Small Machine Bindery Operator folate assay cannot be used for patients using these drugs. Microalbumin, Random Reviewed date:03/05/2025 04:53:26 PM Interpretation: Performing Lab:[facility], [address] [place] [phone] Notes/Report: Creatinine Urine 136.87 Microalbumin Urine 22.0 Microalbum/Creatinine Ratio Ur 16.0 <30 ug/mg cr Albumin/Creatinine Ratio Reference Ranges: Normal: < 30 ug/mg creatinine Microalbuminuria: 30 - 300 ug/mg creatinine Clinical Albuminuria: > 300 ug/mg creatinine Hemoglobin A1c Reviewed date:03/05/2025 04:53:00 PM Interpretation: Performing Lab:[facility], [address] [place] [phone] Notes/Report: Hemoglobin A1c % 5.5 <6.0 % [...] average glucose, using the formula of the R5D-Ldkfqzy Average Glucose study (ADAG), Diabetes Care, Vol.31,#8, 2007 UA ClnCatch+Micro w/rflx Cul t Reviewed date:2025 04:57:40 PM Interpretation: Performing Lab:[address] [address] Notes/Report: [id number] Urine, Clean Catch Color Urine Yellow Appearance Urine Clear PH 7.5 5.0-9.0 Glucose Urine UA Negative Negative mg/dL Urine Blood Negative Negative Specific Bend - Urine 1.020 1.005-1.025 Urine Protein Negative Neg-Trace mg/dL Urine Ketones Negative Negative mg/dL Nitrite Urine Negative Negative Leukocyte Esterase Urine Moderate (2+) Negative RBC Urine 0-2 0-2 /HPF WBC Urine 6-10 0-5 /HPF Squamous Epithelial Cell Urine 3-5 0-2 /HPF Bacteria Urine None Seen None Seen Hyaline Casts Urine 0-2 0-2 /LPF TSH reflex Free T4 Reviewed date:03/11/2025 12:29:23 PM Interpretation: Performing Lab:[address] [address] Notes/Report: TSH reflex Free T4 0.47 0.32-4.0 uIU/mL Urine Culture Reviewed date:2025 04:57:18 PM Interpretation: Performing Lab:[facility], [address] [place] [phone] Notes/Report: Urine Culture Report Result Urine Culture < 10,000 cfu/ml Hold Gold Reviewed date:03/11/2025 12:29:14 PM Interpretation: Performing Lab:[address] [address] Notes/Report: Hold Gold See Note Specimen held untested for 24 hours; Call to request Chemistry testing. Pathology Reviewed date:06/01/2025 12:37:49 PM Interpretation: Performing Lab:[facility], [address] [place] [address] Notes/Report: ----- Name: Tiffanie Kirby Age/Sex: 60/F : 1965 Unit#: [id number] Attend Dr: Ricardo Wu MD Re05/27/25 Status : [facility] Location: [facility] Disch: ----- SPEC : [id number] RECD : 05/28/25 STATUS: GABRIELA A[place] NUM: [id number] JONATHAN: 05/27/25-1439 [facility] DR: Ricardo Wu MD ENTERED: 05/28/25 52 SP TYPE: Surgical OTHR DR: Wilfred Chavez MD ORDERED: HE Stain/3, Gross Micro L4/2, IHC, Special st. 2/2, H. pylori, AB/PAS/2 Diagnosis A. Stomach, antrum, biopsy: Antral-type mucosa with moderate chronic inactive inflammation; no Helicobacter organisms seen. B. EG junction, 39 c m, biopsy: - Cardiac-type mucos a with moderate chronic inactive inflammation; no intestinal metaplasia seen. - Squamous epitheliu m within normal limits. Clinical History Pre-Op Dx: Left uppe r quadrant pain Post-Op Dx: Hiatal hernia Microscopic Description A, B. Microscopic sections examined. No metaplastic changes are seen in A and B, supported by AB/PAS stains; no Helicobacter organisms are seen, supported by H. pylori immunostain (A). Material Received A. Gastric antrum B. EG junction at 39 Gross Description A. Received in forma junaid are 3 good 3 mm soft tissue fragments, totally submitted in A1. B. Received in forma junaid are 2 good 2 mm soft tissue fragments, totally submitted in B1. (RJD) Special studies orde red and performed: Immunostain for H. pylori on A; AB/PAS stains on A and B IHC S/NG Disclaimer NOTE: Unless otherwi se stated, all tissue is formalin-fixed and paraffin-embedded. Some or all of the immunohistochemical tests reported herein may have been developed and their performance characteristics determined by [facility]. They have not been cleared or appr jo ann by the U.S. Food and Drug Administration (FDA). However, the FDA has determined that such clearance or approval is not necessary. This laboratory is certified under the Clinical Laboratory Improvement Amendments of 1988 (CLIA) as qualified to perform high complexity clinical laboratory testing. CONTINUED ON NEXT PAGE ----- Name: Tiffanie Kirby Age/Sex: 60/F : 1965 Unit#: [id number] Attend Dr: Ricardo Wu MD Re05/27/25 Status : [facility] Location: [facility] Disch: ----- SPEC : [id number] RECD : 05/28/25 STATUS: GABRIELA ALEX NUM: [id number] JONATHAN: 05/27/25-14[address] [facility] [address]: Ricardo Wu MD ENTERED: 05/28/25-08 52 SP TYPE: Surgical OTHR DR: Wilfred Chavez MD ORDERED: HE Stain/3, Gross Micro L4/2, IHC, Special st. 2/2, H. pylori, AB/PAS/2 Copies To: Wilfred Chavez MD [facility] [address] [place] [address] [place] [address] Ricardo Wu MD [facility] [address] [place] [address] ----- Signed (signature on file) Jose C Malhotra MD 06/01/25 1122 ----- END OF REPORT XR DEXA axial skeleton Reviewed date:06/01/2025 12:33:35 PM Interpretation: Performing Lab: Notes/Report: [address] [place] [address] Mammography Report Signed Patient: Tiffanie Kirby MR#: [id number] : 1965 Acct:[id number] Age/Sex: 60 / F ADM Date: 06/01/25 Loc: HO.MAMMO Attending Dr: Pierce Barton MD Ordering Physician: Pierce Barton MD Results: Date of Service: 06/01/25 Follow Up: Procedure(s): XR DEXA axial skeleton Accession Number(s): [id number] cc: Wilfred Chavez MD; Pierce Barton MD Reason For Exam: EXAMINATION: DXA BONE DENSITY AXIAL HISTORY: TECHNIQUE: Register My Info Dual energy absorptiometry (DEXA) of the lumbar spine, total left hip, and femoral neck was performed. COMPARISON: Comparison is made with the prior examination dated 12/27/2022. FINDINGS: The bone mineral density of the lumbar spine is 1.221 g/cm2, corresponding to a T-score of 0.3, and a Z-score of 1.6. This is indicative of normal bone mineral density. This represents a BMD change of -1.1% compared to the prior exam. This is not statistically significant. The bone mineral density of the left total hip is 0.950 g/cm2, corresponding to a T-score of -0.5, and a Z-score of 0.5. This is indicative of normal bone mineral density. This represents a BMD change of -1.9% compared to the prior exam. This is not statistically significant. The bone mineral density of the left femoral neck is 0.855 g/cm2, corresponding to a T-score of -1.3, and a Z-score of 0.0. This is indicative of osteopenia. This represents a BMD change of 5.3% compared to the prior exam. FRACTURE RISK: The FRAX index suggests a ten year probability of major osteoporotic fracture of 7.9%, and of hip fracture 0.6%. MM/XR DEXA axial skeleton IMPRESSION: Based on bone mineral density, and according to World Health Organization (WHO) criteria, the diagnosis is consistent with osteopenia. Statistically, 68% of repeat scans fall within 1 SD (+/- 0.010 g/cm2 for AP spine L1-L4) and 1 SD (+/- 0.012 g/cm2 for femur total) FRAX is a trademark of the [employer]'s [place] for Metabolic Bone Disease, a World Health Organization (WHO) Collaborating Center. Electronically signed by: iRcardo Fang MD 06/01/2025 09:42 AM EST Dictated By: Ricardo Fang MD Signed By: <Electronically signed by Ricardo Fang MD in OV> 06/01/25941 DD/ 9 TD/TT: 06/01/25939 News Videographer: Abi [address] [place] [address] Mammography Report Signed Patient: Alida Kirby MR#: [id number] : 1965 Acct:[id number] Age/Sex: 60 / F ADM Date: 06/01/25 Loc: HO.MAMMO Attending Dr: Pierce Barton MD Ordering Physician: Pierce Barton MD Results: Date of Service: 11/20 Follow Up: Procedure(s): XR DEX A axial skeleton Accession Number(s): [id number] cc: Wilfred Chavez MD; Pierce Barton MD Reason For Exam: EXAMINATION: DXA BON E DENSITY AXIAL HISTORY: TECHNIQUE: [place] Dual energy absorptiometry (DEXA) of the lumbar spine, total left hip, and femoral neck was performed. COMPARISON: Comparis on is made with the prior examination dated 12/27/2022. FINDINGS: The bone mineral den sity of the lumbar spine is 1.221 g/cm2, corresponding to a T-score of 0.3, and a Z-score of 1.6. This is indicative of normal bone mineral density. This represents a BM D change of -1.1% compared to the prior exam. This is not statistically significant. The bone mineral den sity of the left total hip is 0.950 g/cm2, corresponding to a T-score of -0.5, and a Z-score of 0.5. This is indicative of normal bone mineral density. This represents a BM D change of -1.9% compared to the prior exam. This is not statistically significant. The bone mineral den sity of the left femoral neck is 0.855 g/cm2, corresponding to a T-score of -1.3, and a Z-score of 0.0. This is indicative of osteopenia. This represents a BM D change of 5.3% compared to the prior exam. FRACTURE RISK: The FRAX index sugge sts a ten year probability of major osteoporotic fracture of 7.9%, an d of hip fracture 0.6%. M M/XR DEXA axial skeleton IMPRESSION: Based on bone minera l density, and according to World Health Organization (WHO) criteria, the diagnosis is consistent with osteopenia. Statistically, 68% o f repeat scans fall within 1 SD (+/- 0.010 g/cm2 for AP spine L1-L4) and 1 SD (+/- 0.012 g/cm2 for femur total) FRAX is a trademark of the [employer] [place] for Metabolic Bone Disease, a World Health Organization (WHO) Collaborating Center. Electronically margie d by: Ricardo Fang MD 06/01/2025 09:42 AM [facility] Dictated By: Ricardo Fang MD Signed By: <Electronically signed by Ricardo Fang MD in OV> 06/01/2542 DD/ 9 TD/TT: 06/01/25939 News Videographer: Reason For Referral Reason please sandra morgan [...] End Date Status Vitamin D 50 MCG (1999 UT) 1 tablet Orally Once a day for 30 day(s) Not-Taking Magnesium 250 MG 1 tablet with a meal Orally Once a day for 30 day(s) Not-Taking N29-Gzsepm 5000 1 tablet Orally once a day Active Hyoscyamine Sulfate 0.125 MG 1 tablet as needed Orally twice a day for 30 days 05/14/2025 Not-Taking Hyoscyamine Sulfate ER 0.375 MG 1 tablet Orally once a day for 30 days 06/18/2025 Active MONOGRAM AND LETTER PASTER Thyroid 90 MG 1 tablet on an [...] Status Risk Notes Problem Basal cell carcinoma (2591285) Basal cell carcinoma (C44.91) Active confirmed Problem Hypothyroid (28130299) Hypothyroid (E03.9) Active confirmed Problem 011235423 Vitamin B12 deficiency (E53.8) Active confirmed Problem 22588893 Post menopausal problems (N95.9) Active confirmed Problem 530872686 Cervical disc disease (M50.90) Active confirmed Problem Peptic ulcer (95715094) Peptic ulcer (K27.9) Active confirmed Problem 358820749 Anemia, unspecified type (D64.9) Active confirmed Problem 053206000 Abnormal mammogram (R92.8) Active confirmed Problem 944671976 Prediabetes (R73.03) Active confirmed Problem Irritable bowel (37084677) Irritable bowel (K58.9) Active confirmed Problem 579473669 Cataract, unspecified cataract type, unspecified laterality (H26.9) Active confirmed Vital Signs Blood pressure diastolic 66 mm Hg 06/18/2025 Height 66.5 in 06/18/2025 Blood pressure systolic 144 mm Hg 06/18/2025 Weight 154 lbs 06/18/2025 BMI 24.48 kg/m2 06/18/2025 Encounters Encounter Location Date Provider Diagnosis Wilfred Chavez MD [address] [id number] 03/05/2025 Wilfred Chavez Blood tests for routine general physical examination Z00.00 ; Vitamin B12 deficiency E53.8 ; Prediabetes R73.03 and Anemia, unspecified type D64.9 Wilfred Chavez MD [address] [id number] 06/18/2025 Wilfred Chavez UTI (urinary tract infection) N39.0 and Irritable bowel K58.9 Wilfred Chavez MD [address] [id number] 03/11/2025 Wilfred Chavez Annual physical exam Z00.00 ; Hypothyroid E03.9 ; Abdominal pain R10.9 ; Prediabetes R73.03 ; Vitamin B12 deficiency E53.8 and Depression screening Z13.31 Wilfred Chavez MD [address] [id number] 04/19/2025 Wilfred Chavez Peptic ulcer K27.9 and Abdominal bruit R09.89 Wilfred Chavez MD [address] [id number] 05/14/2025 Wilfred Chavez Irritable bowel K58.9 Wilfred Chavez MD [address] [id number] 03/16/2025 Wilfred Chavez Assessments Encounter Date Diagnosis (ICD Code) Assessment Notes Treatment Notes Treatment Clinical Notes Section Notes 03/05/2025 Blood tests for routine general physical examination (ICD-10 - Z00.00) 06/18/2025 UTI (urinary tract infection) (ICD-10 - N39.0) pending lab 03/11/2025 Annual physical exam (ICD-10 - Z00.00) [...] 03/05/2025 Vitamin B12 deficiency (ICD-10 - E53.8) 06/18/2025 Irritable bowel (ICD-10 - K58.9) patient verbalized understandng of medication and directions for use 03/11/2025 Abdominal pain (ICD-10 - R10.9) pending diagnostic testing, [place] order faxed to [facility] dept 03/05/2025 Prediabetes (ICD-10 - R73.03) [...] ABD 03/11/2025 XR DEXA axial skeleton 11/08/2020 UA ClnCatch+Micro w/rflx Cult 06/18/2025 Next Appt Details Provider Name:Wilfred duenas, 03/07/2026 07:00:00 AM, [address] [place] [address], [address], [place], [place], [id number], Provider Name:Wilfred Banks Heaven ier, 03/14/2026 09:30:00 AM, [address], [address], [place], [place], [id number], Insurance Providers Payer Name Payer Address Payer Phone Subscriber Number Group Number Insured Name Patient Relationship to Insured Coverage Start Date Coverage End Date [address] [place] [phone] [id number] Tiffanie Kirby Self - patient is the insured Medical (General) History Medical History History ICD Code 03/18/2013 Colonoscopy - repeat in 10 yea rs going to do cologard 07/2015 Pap Smear w/ Dr.Lisa Butterfield,[facility] CHECKMAN ([phone])
--- OUTSIDE RECORDS SUMMARY | 2025-06-18 15:58 | XMS_ITS | Encounter Summary ---
Author Organization [facility] Address [address] [place] [address] [place] [phone] Phone Care Team Providers Care Plastics Factory Worker Name Role Phone Wilfred Chavez MD Primary Care Provider Encounter Details Date Type Department Care Team (Late st Contact Info) Description 10/10/2022 Transcribe Orders Virtual Department [address] [place] [address] Wilfred Chavez MD [address] [place] [address] [place] [address] Encounter for screening mammogram for malignant neoplasm [...] extremely dense, which lowers thesensitivity of mammography. us Wilfred Chavez MD IMG MG EXAMS Final R esult documented in this encounter Visit Diagnoses Diagnosis Encounter for screening mammogram for malignant neoplasm of breast- Primary Encounter for screening mammogram for malignant neoplasm of breast documented in this encounter Care Teams Plastics Factory Worker Relationship Specialty Start Date End Date Wilfred Chavez MD [address] [place] [address] [place] [address] PCP - General 08/01/17 documented as of this encounter Additional Source Comments The information contained in this document represents components of the legal health record. It is not the complete legal health record.[facility]
--- OUTSIDE RECORDS SUMMARY | 2025-06-18 15:59 | XMS_ITS | Encounter Summary ---
Author Organization [facility] Address [address] [place] [address] Phone Care Team Providers Care Operations Assistant Name Role Phone Wilfred Chavez MD Primary Care Provider Encounter Details Date Type Department Care Team (Late st Contact Info) Description 04/08/2020 Procedure Pass [address] [address] Social History Tobacco Use Types Packs/Day Years [...] documented as of this encounter Care Teams Operations Assistant Relationship Specialty Start Date End Date Wilfred Chavez MD [address] [place] [address] [place] [address] PCP - General 08/01/17 documented as of this encounter Additional Source Comments The information contained in this document represents components of the legal health record. It is not the complete legal health record.[facility]
--- OUTSIDE RECORDS SUMMARY | 2025-06-18 16:00 | XMS_ITS | Encounter Summary ---
Author Organization [facility] Address [address] [place] [address] [place] [address] Phone Care Team Providers Care Pickling Tank Operator Name Role Phone Wilfred Chavez MD Primary Care Provider Encounter Details Date Type Department Care Team (Late st Contact Info) Description 04/08/2020 Ancillary Orders Virtual Department [address] [place] [address] Wilfred Chavez MD [address] [place] [address] [place] [address] Breast screening Social History Tobacco Use Types [...] documented as of this encounter Care Teams Pickling Tank Operator Relationship Specialty Start Date End Date Wilfred Chavez MD [address] [place] [address] [place] [address] PCP - General 08/01/17 documented as of this encounter Additional Source Comments The information contained in this document represents components of the legal health record. It is not the complete legal health record.[facility]
--- OUTSIDE RECORDS SUMMARY | 2025-06-18 16:01 | XMS_ITS | Encounter Summary ---
Author Organization [facility] Address [address] [place] [address] Phone Care Team Providers Care Flight Physician Name Role Phone Wilfred Chavez MD Primary Care Provider Encounter Details Date Type Department Care Team (Late st Contact Info) Description 09/24/2023 Transcribe Orders Virtual Department [address] [place] [address] Wilfred Chavez MD [address] [place] [address] [place] [address] Breast screening (Primary Dx) Social History Tobacco [...] unspecified documented in this encounter Care Teams Flight Physician Relationship Specialty Start Date End Date Wilfred Chavez MD [address] [place] [address] [place] [address] PCP - General 08/01/17 documented as of this encounter Additional Source Comments The information contained in this document represents components of the legal health record. It is not the complete legal health record.[facility]
--- OUTSIDE RECORDS SUMMARY | 2025-06-18 16:01 | XMS_ITS | Encounter Summary ---
Author Organization [facility] Address [address] [address] Phone Care Team Providers Care Contract Assistant Name Role Phone Wilfred Chavez MD Primary Care Provider Encounter Details Date Type Department Care Team (Late st Contact Info) Description 12/02/2023 Ancillary Orders [facility] [address] [address] Wilfred Chavez MD [address] [place] [address] [place] [address] Abnormal finding on mammography (Primary Dx) Social [...] mammography documented in this encounter Care Teams Contract Assistant Relationship Specialty Start Date End Date Wilfred Chavez MD [address] [place] [address] [place] [address] PCP - General 08/01/17 documented as of this encounter Additional Source Comments The information contained in this document represents components of the legal health record. It is not the complete legal health record.[facility]
--- OUTSIDE RECORDS SUMMARY | 2025-06-18 16:01 | XMS_ITS | Encounter Summary ---
Author Organization [facility] Address [address] [place] [phone] Phone Care Team Providers Care Brand Marketing Specialist Name Role Phone Wilfred Chavez MD Primary Care Provider Encounter Details Date Type Department Care Team (Late st Contact Info) Description 09/24/2023 Procedure Pass [facility], [address] [id number] Social History Tobacco Use Types Packs/Day Years [...] on filedocumented in this encounter Care Teams Brand Marketing Specialist Relationship Specialty Start Date End Date Wilfred Chavez MD [address] [place] [address] [place] [address] PCP - General 08/01/17 documented as of this encounter Additional Source Comments The information contained in this document represents components of the legal health record. It is not the complete legal health record.[facility]
--- OUTSIDE RECORDS SUMMARY | 2025-06-18 16:02 | XMS_ITS | Encounter Summary ---
Author Organization [facility] Address [address] [place] [phone] Phone Care Team Providers Care Marine Steam Fitter Name Role Phone Wilfred Chavez MD Primary Care Provider Encounter Details Date Type Department Care Team (Late st Contact Info) Description 07/20/2020 Transcribe Orders Virtual Department [address] [place] [phone] Wilfred Chavez MD [address] [place] [address] [place] [address] Exposure to SARS-associated coronavirus (Primary Dx) Social [...] PM EST) COVID Testing Status Sent to [facility] Symptomatic? NO [facility] Other 07/20/2020 3:25 PM EST 07/20/2020 6:20 PM EST us Wilfred Chavez MD LAB GENERAL ORDERABLES Edited Result - Final [facility] [address] [place] [address] documented in this encounter Visit Diagnoses Diagnosis Exposure to SARS-associated coronavirus- Primary documented in this encounter Additional Health Concerns Infection Onset Date Last Indicated Resolved Time CoV-Exposed Comment:Recent close contact 07/20/2020 07/20/2020 08/03/2020 1:24 AM EST CoV-Risk 10/22/2021 10/22/2021 11/02/2021 1:23 AM EDT CoV-Risk 07/26/2022 07/26/2022 08/06/2022 1:22 AM EST documented as of this encounter Care Teams Marine Steam Fitter Relationship Specialty Start Date End Date Wilfred Chavez MD [address] [place] [address] [place] [id number] PCP - General 08/01/17 documented as of this encounter Additional Source Comments The information contained in this document represents components of the legal health record. It is not the complete legal health record.[facility]
[2025-06-18 16:03] LABS: Appearance Urine Clear; Glucose Urine UA Negative (Negative); PH 7.0 (5.0-9.0); Specific Gravity - Urine 1.025 (1.005-1.025); UMIC TRIGGER UACC YES
== END 2025-06-18 15:55 | disposition home or self-care (01) ==
LOC: HO.LNP 15:54
PROVIDERS: Visit Provider Internal Medicine
DX: N39.0 Urinary tract infection, site not specified (principal)
CPT/HCPCS: 81001